=== PATIENT | male | born 1950 | race Caucasian/White ===

== ENCOUNTER 2021-10-19 14:33 | Outpatient (CLI) | payer OTHER, SELFPAY ==
[2021-10-19 16:52] LABS: Uric Acid* 9.8 mg/dL (2.2-8.4)
== END 2021-10-19 14:34 | disposition home or self-care (01) ==
LOC: LKVREF 14:34
PROVIDERS: PCP Family Medicine; Visit Provider Nurse Practitioner Family
DX: M79.673 Pain in unspecified foot (principal); M10.9 Gout, unspecified
CPT/HCPCS: 84550

== ENCOUNTER 2022-04-22 08:21 | Outpatient (CLI) | payer OTHER, SELFPAY ==
[2022-04-22 12:50] LABS: Chloride* 101 mmol/L (96-114)
[2022-04-22 12:51] LABS: Albumin* 4.2 g/dL (3.3-5.0); Sodium* 138 mmol/L (135-149)
[2022-04-22 12:53] LABS: Carbon Dioxide* 30 mmol/L (20-32); Cholesterol* 163 mg/dL (90-199)
[2022-04-22 12:54] LABS: Alanine Aminotransferase* 18 U/L (4-50); Alkaline Phosphatase* 85 U/L (40-150); Aspartate Amino Transferase* 30 U/L (12-35); Bilirubin Total* 1.1 mg/dL (0.1-1.5); Blood Urea Nitrogen* 22 mg/dL (7-30); Estimated Glomerular Filt Rate 81 ml/min; Glucose* 97 mg/dL (60-115); Potassium* 4.9 mmol/L (3.6-5.1); Total Protein* 7.5 g/dL (6.0-8.3); Triglycerides* 60 mg/dL (40-149)
[2022-04-22 12:55] LABS: Calcium* 9.2 mg/dL (8.4-10.6); HDL Cholesterol* 73 mg/dL (>=40); LDL Cholesterol Calculated 78 mg/dL (<100)
[2022-04-22 13:12] LABS: PSA Screen* 1.52 ng/mL (0.10-4.00)
== END 2022-04-22 08:22 | disposition home or self-care (01) ==
LOC: FRMREF 08:22
PROVIDERS: PCP Family Medicine; Visit Provider Family Medicine
DX: E78.5 Hyperlipidemia, unspecified (principal); Z12.5 Encounter for screening for malignant neoplasm of prostate
CPT/HCPCS: 80053; 80061; 84153

== ENCOUNTER 2023-03-24 07:38 | Outpatient (CLI) | payer OTHER, SELFPAY ==
--- NOTE | 2023-03-24 09:14 | W.ANESCHARGE ---
Anesthesia Charges Start Date/Time Anesthesia Start Date: 03/24/23 Anesthesia Start Time: 08:45 Stop Date/Time Anesthesia Stop Date: 03/24/23 Anesthesia Stop Time: 09:10
--- NOTE | 2023-03-24 09:32 | W.ANESCHARGE ---
Anesthesia Charges Start Date/Time Anesthesia Start Date: 03/24/23 Anesthesia Start Time: 08:45 Stop Date/Time Anesthesia Stop Date: 03/24/23 Anesthesia Stop Time: 09:10 Summary Extremes of Age - Over 70 or under 1: MDA
== END 2023-03-24 07:39 | disposition home or self-care (01) ==
LOC: OP CLINIC 07:39
PROVIDERS: PCP Family Medicine; Visit Provider Internal Medicine
DX: Z12.11 Encounter for screening for malignant neoplasm of colon (principal); Z86.010 Personal history of colon polyps
CPT/HCPCS: 00812; 45378; 99100; J2704

== ENCOUNTER 2023-06-02 07:47 | Outpatient (CLI) | payer OTHER, SELFPAY | END 2023-06-02 07:48 | disposition home or self-care (01) | LOC: NFLDREF 06-07 07:46 | PROVIDERS: PCP Family Medicine; Referring Provider Family Medicine; Visit Provider Family Medicine | DX: E78.5 Hyperlipidemia, unspecified (principal); Z79.899 Other long term (current) drug therapy; Z12.5 Encounter for screening for malignant neoplasm of prostate | CPT/HCPCS: 80053; 80061; G0103 ==

== ENCOUNTER 2023-06-06 14:07 | Outpatient (CLI) | payer OTHER, SELFPAY | END 2023-06-06 14:08 | disposition home or self-care (01) | PROVIDERS: PCP Family Medicine; Visit Provider Family Medicine | DX: Z00.00 Encounter for general adult medical examination without abnormal findings (principal); I10 Essential (primary) hypertension; N28.9 Disorder of kidney and ureter, unspecified | CPT/HCPCS: 80048 ==

== ENCOUNTER 2024-06-28 07:31 | Outpatient (CLI) | payer BC, SELFPAY | END 2024-06-28 07:32 | disposition home or self-care (01) | LOC: NFLDREF 07-02 00:22 | PROVIDERS: PCP Family Medicine; Referring Provider Family Medicine; Visit Provider Family Medicine | DX: E78.5 Hyperlipidemia, unspecified (principal); Z12.5 Encounter for screening for malignant neoplasm of prostate | CPT/HCPCS: 80053; 80061; G0103 ==

== ENCOUNTER 2024-07-03 14:08 | Outpatient (CLI) | payer BC, SELFPAY | END 2024-07-03 14:09 | disposition home or self-care (01) | LOC: NFLDREF 14:09 | PROVIDERS: PCP Family Medicine; Visit Provider Family Medicine | DX: E87.5 Hyperkalemia (principal) | CPT/HCPCS: 80048 ==

== ENCOUNTER 2024-12-25 14:24 | Outpatient (CLI) | payer BC, SELFPAY ==
[2024-12-25 14:59] LABS: Creatinine* 1.3 mg/dL (0.5-1.5); Estimated Glomerular Filt Rate 58 ml/min
--- NOTE | 2024-12-25 15:00 | CRLHL7_ITS ---
For Patients: As a result of the Century Cures Act, medical imaging exams and procedure reports are released immediately into your electronic medical record. You may view this report before your referring provider. If you have questions, please contact your health care provider. Indication: ABNORMAL FINDING OF LUNG Technique: CT Chest W/ 75CC ISOVUE 370 Please note that all CT scans at this facility use dose modulation, iterative reconstruction, and/or weight-based dosing when appropriate to reduce radiation dose to as low as reasonably achievable. Comparison: Chest x-ray 12/18/2024 Findings: The visualized thyroid is within normal limits. No enlarged mediastinal, hilar or axillary lymph nodes. Large mass within the liver is present which measures 13.8 x 11.9 cm, incompletely visualized. Multiple surgical clips are present in the right upper retroperitoneum from right nephrectomy. Vascular masses within the left upper retroperitoneum measure up to 2.9 cm. Atherosclerotic changes. Lytic lesion within the C3 vertebral body measures 1.2 cm. Additional smaller lytic lesions are present elsewhere. No pathologic fracture. Innumerable pulmonary nodules are present bilaterally, the largest is located within the right lower lobe and measures 3.8 cm. No pleural effusion. No pneumothorax. No pulmonary edema. Impression: Innumerable pulmonary nodules measuring up to 3.8 cm. Vascular solid masses within the visualized left upper retroperitoneum measuring up to 2.9 cm. Surrounding left para-aortic adenopathy also noted. Complex vascular intrahepatic mass measures at least 13.8 cm. A smaller adjacent masses present in the dome of the liver. Recommendations include CT of the abdomen and pelvis to better visualize the liver masses and left upper retroperitoneal masses. The should be followed with percutaneous biopsy, CT-PET and oncology referral. Please note that all CT scans at this facility use dose modulation, iterative reconstruction, and/or weight-based dosing when appropriate to reduce radiation dose to as low as reasonably achievable. Dictated by Tomas Galindo MD @ 12/26/2024 11:11:48 AM (Electronically Signed)
== END 2024-12-25 14:25 | disposition home or self-care (01) ==
LOC: CT 14:25
PROVIDERS: PCP Family Medicine; Visit Provider Family Medicine
DX: R91.8 Other nonspecific abnormal finding of lung field (principal); R16.0 Hepatomegaly, not elsewhere classified
CPT/HCPCS: 36415; 71260; 82565; Q9967

== ENCOUNTER 2024-12-30 16:26 | Outpatient (CLI) | payer BC, SELFPAY | END 2024-12-30 16:27 | disposition home or self-care (01) | LOC: NFLDREF 16:27 | PROVIDERS: PCP Family Medicine; Visit Provider Family Medicine | DX: M89.8X9 Other specified disorders of bone, unspecified site (principal); R16.0 Hepatomegaly, not elsewhere classified; R91.8 Other nonspecific abnormal finding of lung field; R63.4 Abnormal weight loss; Z68.24 Body mass index [BMI] 24.0-24.9, adult | CPT/HCPCS: 80053; 83970 ==

== ENCOUNTER 2024-12-31 12:41 | Outpatient (CLI) | payer BC, SELFPAY ==
--- NOTE | 2024-12-31 13:00 | CRLHL7_ITS ---
For Patients: As a result of the Century Cures Act, medical imaging exams and procedure reports are released immediately into your electronic medical record. You may view this report before your referring provider. If you have questions, please contact your health care provider. INDICATION: Abnormal chest CT. Suspect malignancy. TECHNIQUE: CT abdomen and pelvis acquired with 81 mL Isovue 370 IV contrast. COMPARISON: 12/25/[address] FINDINGS: Lower chest: Multiple pulmonary metastases. Liver: Subtle 7 mm low-density lesion left hepatic lobe image 46 series 2. 6 mm similar lesion right hepatic lobe image 47. Suspicious for metastases. Gallbladder and bile ducts: Unremarkable. No stones or inflammation. No biliary dilatation. Pancreas: Unremarkable. No mass or inflammation. Spleen: Unremarkable. Normal in size. No masses. Adrenal glands: 2 irregularly enhancing nodules in the left adrenal gland measuring 3.0 and 2.4 cm compatible with metastases. Right adrenal gland is not visible. Kidneys: Surgical clips in the right retroperitoneum. Left kidney normal GI tract: Unremarkable. Normal in caliber. No sign of mass or inflammation. Vasculature: Aortic atherosclerosis. Mesenteric arteries are patent. Lymph nodes: No lymphadenopathy. Omentum/Peritoneum/Abdominal Wall: 13.4 x 11.8 x 15.7 cm malignant mass with peripheral hypervascularity and internal necrosis in the right retroperitoneum. There is tumor neovascularity around the mass. This appears to originate separate from the liver and it deforms and possibly invade the right hepatic lobe. The leading differential diagnoses include renal cell carcinoma or adrenocortical carcinoma. 1 cm enhancing soft tissue nodule in the superficial subcutaneous tissues lateral to the iliac bone and gluteus musculature on image 96 series 2, and 2.1 cm enhancing intramuscular mass just posterior to the right femur lesser trochanter on image 152 are probably soft tissue metastases. Pelvis: Unremarkable. Bones: Lytic metastases in the anterior left acetabulum, right L1 vertebral body. IMPRESSION: 1. 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 2. Mass deforms and possibly invades the right hepatic lobe. 3. Metastases in the left adrenal gland, L1, left acetabulum, subcutaneous tissues, lungs, and probably the liver. Please note that all CT scans at this facility use dose modulation, iterative reconstruction, and/or weight-based dosing when appropriate to reduce radiation dose to as low as reasonably achievable. Dictated by Arben Domingo MD @ 01/01/2025 2:41:06 PM (Electronically Signed)
== END 2024-12-31 12:42 | disposition home or self-care (01) ==
PROVIDERS: PCP Family Medicine; Visit Provider Family Medicine
DX: R91.8 Other nonspecific abnormal finding of lung field (principal); C48.0 Malignant neoplasm of retroperitoneum; C78.00 Secondary malignant neoplasm of unspecified lung; C79.72 Secondary malignant neoplasm of left adrenal gland; C79.51 Secondary malignant neoplasm of bone; R16.0 Hepatomegaly, not elsewhere classified; M89.8X9 Other specified disorders of bone, unspecified site
CPT/HCPCS: 74177; Q9967

== ENCOUNTER 2025-01-01 07:47 | Outpatient (CLI) | payer BC, SELFPAY | END 2025-01-01 07:48 | disposition home or self-care (01) | LOC: NFLDREF 07:49 | PROVIDERS: PCP Family Medicine; Visit Provider Family Medicine | DX: E83.52 Hypercalcemia (principal) | CPT/HCPCS: 82397 ==

== ENCOUNTER 2025-02-18 18:25 | Emergency (ER) | payer BC, SELFPAY ==
--- OUTSIDE RECORDS SUMMARY | 2025-01-06 07:45 | XMS_ITS | Encounter Summary ---
Author Organization [facility] Address [address] [place] [id number] Care Team Providers Care Tv News Director Name Role Phone Unavailable Primary Care Provider Unavailabl e Reason for Visit * Reason Onset Date Comments Intake Assessment 01/06/2025 * Appointment Request (Routine) - Authorized Specialty Diagnoses / Procedures Referred By Lencho lópez Referred To Contact Oncology Referral ID Status Reason Start Date Expiration Date V isits Requested Visits Authorized [id number] Authorized 01/03/2025 04/05/2026 1 1 Encounter Details Date Type Department Care Team (Latest Contact Info) Description 01/06/2025 8:45 AM CDT Clinical Communication Virtual Review in [address] [phone] Intake Assessment Social History Tobacco Use Types Packs/Day Years Used Date Smoking Tobacco: Never Passive Smoke Exposure: Never Smokeless Tobacco: Never Alcohol Use Standard Drinks/Week Comments Not Currently 0 (1 standard drink = 0.6 oz pur e alcohol) Sex and Gender Information Value Date Recorded Sex Assigned at Male 01/05/2025 9:59 AM CDT Legal Sex Male 11:49 AM CLINICAL ADMINISTRATIVE COORDINATOR Gender Identity Male 01/05/2025 9:59 AM CDT Sexual Orientation Straight 01/05/2025 9: 59 AM CDT documented as of this encounter Plan of Treatment Upcoming Encounters Date Type Department Care Team (Late st Contact Info) Description 03/18/2025 1:20 PM CLINICAL ADMINISTRATIVE COORDINATOR Lab Department of Laboratory Medicine and Pathology, [facility], in [place], [place] [address] [place] [phone] Artemio [place] M.D. [address] [place] [phone] 03/18/2025 3:00 PM CLINICAL ADMINISTRATIVE COORDINATOR Office Visit Department of Oncology in [place], [place] [address] [place] [phone] Artemio [place] M.D. [address] [place] [phone] 03/18/2025 4:00 PM CLINICAL ADMINISTRATIVE COORDINATOR Infusion Department of Oncology in [place], [place] [address] [place] [phone] Artemio [place] M.D. [address] [place] [phone] 04/14/2025 12:20 PM CLINICAL ADMINISTRATIVE COORDINATOR Lab Department of Laboratory Medicine and Pathology, [place], [place] [address] [place] [phone] Artemio [place] M.D. [address] [place] [phone] 04/14/2025 2:20 PM CLINICAL ADMINISTRATIVE COORDINATOR Office Visit Department of Oncology in [place], [place] [address] [place] [phone] Artemio [place] M.D. [address] [place] [phone] 04/14/2025 3:00 PM CLINICAL ADMINISTRATIVE COORDINATOR Infusion Department of Oncology in [place], [place] [address] [place] [phone] Artemio [place] M.D. [address] [place] [phone] 05/12/2025 12:50 PM CLINICAL ADMINISTRATIVE COORDINATOR Lab Department of Laboratory Medicine and Pathology, [facility] in [place], [place] [address] [place] [phone] Artemio [place] M.D. [address] [place] [phone] 05/12/2025 3:00 PM CLINICAL ADMINISTRATIVE COORDINATOR Office Visit Department of Oncology in [place], [place] [address] [place] [phone] Artemio [place] M.D. [address] [place] [phone] 05/13/2025 7:00 AM CLINICAL ADMINISTRATIVE COORDINATOR Infusion Department of Oncology in [place], [place] [address] [place] [phone] Artemio [place] M.D. [address] [place] [phone] documented as of this encounter Visit Diagnoses Not on filedocumented in this encounter
--- OUTSIDE RECORDS SUMMARY | 2025-01-08 10:00 | XMS_ITS | Encounter Summary ---
Author Organization [facility] Address [address] [place] [address] Care Team Providers Care Architectural Design Lecturer Name Role Phone Unavailable Primary Care Provider Unavailabl e Reason for Referral * Outpatient (Routine) - Closed Specialty Diagnoses / Procedures Referred By Lencho lópez Referred To Contact Diagnoses Malignant Neoplasm Of Kidney 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 (HCC) Procedures US Liver Biopsy Artemio Dunn M.D. [address] [place] [address] Phone: tel: fax: 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 [address] [place] [address] Phone: tel: fax: [facility] Referral ID Status Reason Start Date Expiration Date Visits Re quested Visits Authorized [id number] Closed 01/08/2025 04/10/2026 1 1 Reason for Visit * Appointment Request (Routine) - Closed Specialty Diagnoses / Procedures Referred By Lencho lópez Referred To Contact Oncology Diagnoses Carcinoma Renal Cell (HCC) Referral ID Status Reason Start Date Expiration Date Visits Re quested Visits Authorized [id number] Closed 01/02/2025 04/04/2026 1 1 Encounter Details Date Type Department Care Team (Late st Contact Info) Description 01/08/2025 11:00 AM CDT Telemedicine Department of Oncology in [place], [place] [address] [place] [address] Artemio Dunn M.D. 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 (HCC) (Primary Dx); Carcinoma Renal Cell Right (HCC) Social History Tobacco Use Types Packs/Day Years Used Date Smoking Tobacco: Never Passive Smoke Exposure: Never Smokeless Tobacco: Never Alcohol Use Standard Drinks/Week Comments Not Currently 0 (1 standard drink = 0.6 oz pur e alcohol) Sex and Gender Information Value Date Recorded Sex Assigned at Male 01/05/2025 9:59 AM CDT Legal Sex Male 11:49 AM [employer] Gender Identity Male 01/05/2025 9:59 AM CDT Sexual Orientation Straight 01/05/2025 9: 59 AM CDT documented as of this encounter Consult Notes * Artemio Dunn M.D. - 01/08/2025 11:00 AM CDT PRIMARY CARE PHYSICIAN No primary care provider on file. REQUESTING PROVIDER Gab Song M.D. [address], [place] [address] LOCAL ONCOLOGIST No care meat team member to display PRIMARY READING ONCOLOGIST Artemio Dunn M.D. REASON FOR CONSULT Sammy Watson is a 74 y.o. 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 I visited with Mr. Watson and his and daughter, Suzette, by video consultation today at the request of Dr. Rios in Urology. Mr. Watson had a right radical nephrectomy and lymphadenectomy in January [address] Gonzalez. Last followup was in 2009. Most recently, he has developed a cough which did not respond to antibiotics. He has had weight loss of about 25 pounds over the last 2-3 months. He notes that he has an intact appetite, though it isnot as good as previous. 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 ECOG performance score 0. He notes some right hip pain for which he just takes Tylenol. His family has noted some issues with memory and balance, though overall he functions quite well. He is not on any blood thinners or aspirin. I have reviewed the available imaging and the outside reports. He does have concerning findings forrecurrent metastatic renal cell carcinoma with a large liver mass along with pulmonary lesions. We will have his outside films formally reviewed here. SUBJECTIVE PAST MEDICAL HISTORY Medical History[1] Surgical History[2] REVIEW OF SYSTEMS Per the HPI. 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 Watson and his and daughter. We discussed next steps in terms of further diagnostic workup to include an ultrasound-guided biopsy of the liver mass. (As noted, he is not on blood thinners or aspirin.) We will also complete his staging with an MRI of the brain. I will be in touch with him about those tests, and then we can go from there in terms of further discussion about treatment. We did discuss that from what I can tell at this point, the mainstay of his therapy would likely be medication rather than any local therapies. It was my pleasure to meet them today. PATIENT EDUCATION Ready to learn, no apparent learning barriers were identified; learning preferences include listening. Explained diagnosis and treatment plan; patient expressed understanding of the content. [1] Past Medical History: Diagnosis Date BenignProstatic Hyperplasia Localized 2017 Cancer Renal Cell Carcinoma Personal History 2009 Dyslipidemia NOS 2009 Hypertension NOS 2009 Polyp Colon 2020 [2] Past Surgical History: Procedure Laterality Date KIDNEY SURGERY 2009 OTHER CONVERTED SHX (SEE COMMENT) N/A 02/01/2008 >1. Right radical nephrectomy. 2. Retroperitoneal lymph node dissection. documented in this encounter Plan of Treatment Upcoming Encounters Date Type Department Care Team (Late st Contact Info) Description 03/18/2025 1:20 PM [employer] Lab Department of Laboratory Medicine and Pathology, [facility] in [place], [place] [address] [place] [phone] Artemio Dunn M.D. [address] [place] [phone] 03/18/2025 3:00 PM [employer] Office Visit Department of Oncology in [place], [place] [address] [place] [phone] Artemio Dunn M.D. [address] [place] [phone] 03/18/2025 4:00 PM [employer] Infusion Department of Oncology in [place], [place] [address] [place] [phone] Artemio Dunn M.D. [address] [place] [phone] 04/14/2025 12:20 PM [employer] Lab Department of Laboratory Medicine and Pathology, [facility], in [place], [place] [address] [place] [phone] Artemio Dunn M.D. [address] [place] [phone] 04/14/2025 2:20 PM [employer] Office Visit Department of Oncology in [place], [place] [address] [place] [phone] Artemio Dunn M.D. [address] [place] [phone] 04/14/2025 3:00 PM [employer] Infusion Department of Oncology in [place], [place] [address] [place] [phone] Artemio Dunn M.D. [address] [place] [phone] 05/12/2025 12:50 PM [employer] Lab Department of Laboratory Medicine and Pathology, [facility], in [place], [place] [address] [place] [phone] Artemio Dunn M.D. [address] [place] [phone] 05/12/2025 3:00 PM [employer] Office Visit Department of Oncology in [address] [phone] Artemio Dunn M.D. [address] [place] [phone] 05/13/2025 7:00 AM [employer] Infusion Department of Oncology in [place], [place] [address] [place] [phone] Artemio Dunn M.D. [address] [place] [phone] documented as of this encounter Procedures Procedure Name Priority Date/Time Associated Diagnosis Comments PROTHROMBIN TIME (PT), P Routine 01/10/2025 8:02 AM CDT Malignant Neoplasm Of Kidney 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 (HCC) PLATELETS, B Routine 01/10/2025 8:02 AM CDT Malignant Neoplasm Of Kidney 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 (HCC) documented in this encounter Results * MR Brain without and with IV Contrast (01/15/2025 7:55 PM CDT) Anatomical Region Laterality Modality Head, Brain, Neuroradiology RST LOS, Neuroradiology ARZ LOS, Neuroradiology FLA LOS N/A Magnetic Resonance Impressions 01/16/2025 11:42 AM CDT 1. 5 mm enhancing lesion in the left frontal lobe, likely a metastasis. 2. 9 mm enhancing extra-axial lesion over the inferior right frontal lobe, likely a meningioma. 3. Nonspecific 6 mm area of enhancement in the left sphenoid bone. Head CT could potentially be helpful for further evaluation. Narrative 01/16/2025 11:42 AM CDT EXAM: MR BRAIN WITHOUT AND WITH IV CONTRAST COMPARISON: None. FINDINGS: 5 mm enhancing lesion in the left frontal lobe with mild surrounding edema (13/105) suspicious for metastatic disease. 9 mm extra-axial enhancing lesion over the inferior right frontal operculum (13/98), more suggestive of a meningioma than a metastasis. No significant mass effect or adjacent edema. Indeterminate 6 mm area of enhancement in the left sphenoid bone (13/63). No additional pathologic intracranial enhancement. Minimal additional FLAIR signal abnormality in the cerebral white matter most consistent with small vessel ischemic change. Small developmental venous anomalies inferior right frontal lobe and anterior left cerebellar hemisphere. Tiny focus of hemosiderin deposition anterior left cerebellar hemisphere adjacent to the developmental venous anomaly, which could represent a tiny cavernous malformation. Enhancing presumed inflammatory lesion/polyp in the inferior left sphenoid sinus (13/33). Slight mucosal thickening in the paranasal sinuses. Postsurgical changes both globes. Procedure Note Ange Lowery M.D. - 01/16/2025 EXAM: MR BRAIN WITHOUT AND WITH IV CONTRAST COMPARISON: None. FINDINGS: 5 mm enhancing lesion in the left frontal lobe with mildsurrounding edema (13/105) suspicious for metastatic disease. 9 mm extra-axial enhancing lesion over the inferior right frontaloperculum (13/98), more suggestive of a meningioma than a metastasis. Nosignificant mass effect or adjacent edema. Indeterminate 6 mm area of enhancement in the left sphenoid bone(13/63). No additional pathologic intracranial enhancement. Minimal additionalFLAIR signal abnormality in the cerebral white matter most consistent withsmall vessel ischemic change. Small developmental venous anomaliesinferior right frontal lobe and anterior left cerebellar hemisphere. Tinyfocus of hemosiderin deposition anterior left cerebellar hemisphereadjacent to the developmental venous anomaly, which could represent a tinycavernous malformation. Enhancing presumed inflammatory lesion/polyp in the inferior left sphenoidsinus (13/33). Slight mucosal thickening in the paranasal sinuses.Postsurgical changes both globes. IMPRESSION: 1. 5 mm enhancing lesion in the left frontal lobe, likely a metastasis. 2. 9 mm enhancing extra-axial lesion over the inferior right frontal lobe,likely a meningioma. 3. Nonspecific 6 mm area of enhancement in the left sphenoid bone. Head CTcould potentially be helpful for further evaluation. us Artemio Dunn M.D. IMG MRI PROCEDURES Final R esult * US Liver Biopsy (01/10/2025 10:40 AM CDT) Anatomical Region Laterality Modality Abdomen, Ultrasound RST LOS, Ultrasound ARZ LOS, Procedure FLA LOS, Abdominal FLA LOS, Procedural, Procedural NWWI LOS N/A Ultrasound Impressions 01/10/2025 10:51 AM CDT Ultrasound-guided right retroperitoneal mass biopsy. NR Narrative 01/10/2025 10:51 AM CDT EXAM: US LIVER BIOPSY PRE-PROCEDURE: TECHNIQUE: Sterile. 1% lidocaine for local anesthesia. Location: Large right retroperitoneal mass, which causes significant mass effect on the adjacent liver. Target lesion size: 13.2 cm. Needle size: 17/18 gauge coaxial system. Number of passes: 4 Complication: None. Blood loss: Minimal. (5 cc of a Gelfoam slurry was injected via the introducer needle following the biopsy to promote hemostasis). PATIENT INSTRUCTIONS: Patient may be dismissed from the radiology department when dismissal criteria met. POST-PROCEDURE DIAGNOSIS: Probable large renal cell carcinoma recurrence in the right nephrectomy bed, which causes significant mass effect on the adjacent liver. Procedure Note Kelvin Kauffman M.D. - 01/10/2025 EXAM: US LIVER BIOPSY PRE-PROCEDURE: TECHNIQUE: Sterile. 1% lidocaine for local anesthesia. Location: Large right retroperitoneal mass, which causes significant masseffect on the adjacent liver. Target lesion size: 13.2 cm. Needle size: 17/18 gauge coaxial system. Number of passes: 4 Complication: None. Blood loss: Minimal. (5 cc of a Gelfoam slurry was injected via theintroducer needle following the biopsy to promote hemostasis). PATIENT INSTRUCTIONS: Patient may be dismissed from the radiologydepartment when dismissal criteria met. POST-PROCEDURE DIAGNOSIS: Probable large renal cell carcinoma recurrencein the right nephrectomy bed, which causes significant mass effect on theadjacent liver. IMPRESSION: Ultrasound-guided right retroperitoneal mass biopsy. NR us Artemio Dunn M.D. IMG US PROCEDURES Final Re sult * (ABNORMAL) CBC with Differential, Blood (01/10/2025 8:02 AM CDT) Hemoglobin 17.1(H) 13.2 - 16.6 g/dL 01/10/2025 8:27 AM CDT DTL Hematocrit 53.7(H) 38.3 - 48.6 % 01/10/2025 8:27 AM CDT DTL Erythrocytes 6.57(H) 4.35 - 5.65 x10(12)/L 01/10/2025 8:27 AM CDT DTL MCV 81.7 78.2 - 97.9 fL 01/10/2025 8:27 AM CDT DTL RBC Distrib Width 18.6(H) 11.8 - 14.5 % 01/10/2025 8:27 AM CDT DTL Platelet Count 374(H) 135 - 317 x10(9)/L 01/10/2025 8:27 AM CDT DTL Leukocytes 7.0 3.4 - 9.6 x10(9)/L 01/10/2025 8:27 AM CDT DTL Neutrophils 5.21 1.56 - 6.45 x10(9)/L 01/10/2025 8:27 AM CDT DHPM Lymphocytes 0.63(L) 0.95 - 3.07 x10(9)/L 01/10/2025 8:27 AM CDT DTL Monocytes 0.86(H) 0.26 - 0.81 x10(9)/L 01/10/2025 8:27 AM CDT DTL Eosinophils 0.22 0.03 - 0.48 x10(9)/L 01/10/2025 8:27 AM CDT DTL Basophils 0.05 0.01 - 0.08 x10(9)/L 01/10/2025 8:27 AM CDT DTL Blood (Blood, Venous) 01/10/2025 8:02 AM CDT 01/10/2025 8:16 AM CDT us Artemio Dunn M.D. LAB BLOOD ADD-ON Final Res ult [facility] [address] [place] [address], [place] DTL [facility] [place] [address] [place] [address] DHPM [facility] [place] [address] [place] [address] * (ABNORMAL) Comprehensive Metabolic Panel (01/10/2025 8:02 AM CDT) [facility] Potassium, S 5.2 3.6 - 5.2 mmol/L 01/10/2025 9:55 AM CDT DTL Sodium, S 137 135 - 145 mmol/L 01/10/2025 9:55 AM CDT DTL Chloride, S 100 98 - 107 mmol/L 01/10/2025 9:55 AM CDT DTL Bicarbonate, S 24 22 - 29 mmol/L 01/10/2025 9:55 AM CDT DTL Anion Gap 13 7 - 15 01/10/2025 9:55 AM CDT DTL BUN (Blood Urea Nitrogen), S 25(H) 8 - 24 mg/dL 01/10/2025 9:55 AM CDT DTL Creatinine 1.43(H) 0.74 - 1.35 mg/dL 01/10/2025 9:55 AM CDT DTL Estimated GFR (eGFR) 52(L) >=60 mL/min/BS A 01/10/2025 9:55 AM CDT DTL Comment: Estimated GFR calculated using the 2020 CKD_EPI creatinine equation. Calcium, Total, S 12.7(H) 8.8 - 10.2 mg/dL 01/10/2025 9:55 AM CDT DTL Glucose, S 104 70 - 140 mg/dL 01/10/2025 9:55 AM CDT DTL Protein, Total, S 7.0 6.3 - 7.9 g/dL 01/10/2025 9:55 AM CDT DTL Albumin, S 3.6 3.5 - 5.0 g/dL 01/10/2025 9:55 AM CDT DTL Aspartate Aminotransferase (AST), S 14 8 - 48 U/L 01/10/2025 9:55 AM CDT DTL Alkaline Phosphatase, S 99 40 - 129 U/L 01/10/2025 9:55 AM CDT DTL Alanine Aminotransferase (ALT), S 8 7 - 55 U/L 01/10/2025 9:55 AM CDT DTL Bilirubin, Total, S 0.8 0.0 - 1.2 mg/dL 01/10/2025 9:55 AM CDT DTL Blood (Blood, Venous) 01/10/2025 8:02 AM CDT 01/10/2025 8:39 AM CDT Artemio Dunn M.D. LAB BLOOD ADD-ON Final Res ult Performing Organization Address [facility] Co de Phone Number [facility] [address] [place] [address] * (ABNORMAL) Prothrombin Time (PT) (01/10/2025 8:02 AM CDT) Prothrombin Time, P 13.6(H) 9.4 - 12.5 sec 01/10/2025 8:32 AM CDT [facility] INR 1.2 0.9 - 1.1 01/10/2025 8:32 AM CDT METH Comment: ----ADDITIONAL INFORMATION---- Standard intensity warfarin therapeutic range: 2.0 to 3.0 High intensity warfarin therapeutic range: 2.5 to 3.5 Blood (Blood, Venous) 01/10/2025 8:02 AM CDT 01/10/2025 8:24 AM CDT Artemio Dunn M.D. LAB BLOOD ADD-ON Final Res ult Performing Organization Address [facility] Co de Phone Number [facility] [address] [place] [address], [facility] [place] [address] * (ABNORMAL) Platelet Count (01/10/2025 8:02 AM CDT) Platelet Count 402(H) 135 - 317 x10(9)/L 01/10/2025 8:22 AM CDT DTL Blood (Blood, Venous) 01/10/2025 8:02 AM CDT 01/10/2025 8:15 AM CDT us Artemio Dunn M.D. LAB BLOOD ADD-ON Final Res ult [facility] [address] [place] [address], [place] [facility] [place] [address] [place] [address] * Interpretation of Outside CT Chest (01/08/2025 11:09 AM CDT) Anatomical Region Laterality Modality Chest, Thoracic RST LOS, Tho racic ARZ LOS, Thoracic FLA LOS, Other, Body N/A Computed Tomography Impressions 01/09/2025 10:10 AM CDT 1. Numerous pulmonary nodules and a mass in the right lower lobe medially that are new since 2009 are highly concerning for pulmonary metastases 2. New lytic lesions in the thoracic spine are also highly concerning for metastatic disease. 3. Sequelae of previous granulomatous infection. Narrative 01/09/2025 10:10 AM CDT EXAM: INTERPRETATION OF OUTSIDE CT CHEST WITH INTRAVENOUS CONTRAST DATED 12/25/2024 but COMPARISON: 11/30/2009 and exams back to 01/11/2008 FINDINGS: There are numerous bilateral noncalcified pulmonary nodules and a 28 x 34 mm mass in the right lower lobe that are all new since 12/10/2009. These are highly concerning for pulmonary metastases, given history of malignancy. These are too numerous to count but some of the larger nodules include a 15 mm nodule in the left upper lobe anteriorly (series 2, image 58), a 12 mm nodule in the right midlung laterally (series 2, image 49), and a 14 mm nodule in the right upper lobe anteriorly (series 2, image 58). The smallest nodules are best demonstrated on the maximum intensity projections (series 7). No adenopathy in the chest. An 10 mm area of lucency with cortical destruction in the T12 vertebral body (series 2, image 92) and an 8 mm lucency in the posterior aspect of T3 (series 2, image 19) that are new since 12/10/2009 are also concerning for bony metastases. No pathologic fractures. There are few calcified pulmonary granulomas. Regional vascular calcifications, including the coronary arteries. Somewhat nodular enlargement of the thyroid is similar to the 12/10/2009 exam. Interpretation of the outside CT of the abdomen and pelvis will be reported separately. Procedure Note Artemio Davis M.D. - 01/09/2025 EXAM: INTERPRETATION OF OUTSIDE CT CHEST WITH INTRAVENOUS CONTRAST DATED1 but COMPARISON: 11/30/2009 and exams back to 01/11/2008 FINDINGS: There are numerous bilateral noncalcified pulmonary nodules and a 28 x 34mm mass in the right lower lobe that are all new since 12/10/2009. Theseare highly concerning for pulmonary metastases, given history ofmalignancy. These are too numerous to count but some of the larger nodulesinclude a 15 mm nodule in the left upper lobe anteriorly (series 2, image58), a 12 mm nodule in the right midlung laterally (series 2, image 49),and a 14 mm nodule in the right upper lobe anteriorly (series 2, image58). The smallest nodules are best demonstrated on the maximum intensityprojections (series 7). No adenopathy in the chest. An 10 mm area of lucency with cortical destruction in the T12 vertebralbody (series 2, image 92) and an 8 mm lucency in the posterior aspect ofT3 (series 2, image 19) that are new since 12/10/2009 are also concerningfor bony metastases. No pathologic fractures. There are few calcified pulmonary granulomas. Regional vascular calcifications, including the coronary arteries. Somewhat nodular enlargement of the thyroid is similar to the 12/10/2009exam. Interpretation of the outside CT of the abdomen and pelvis will bereported separately. IMPRESSION: 1. Numerous pulmonary nodules and a mass in the right lower lobe mediallythat are new since 2009 are highly concerning for pulmonary metastases 2. New lytic lesions in the thoracic spine are also highly concerning formetastatic disease. 3. Sequelae of previous granulomatous infection. us Artemio Dunn M.D. IMPrem CT PROCEDURES Final Re sult * Interpretation of Outside CT Abdomen and or Pelvis (01/08/2025 11:09 AM CDT) Anatomical Region Laterality Modality Abdomen, Pelvis, Abdominal R ST LOS, Abdominal ARZ LOS, Abdominal FLA LOS, Other N/A Computed Tomography Impressions 01/10/2025 3:10 PM CDT Prior right radical nephrectomy. Interval development of a 13.3 cm malignant right retroperitoneal mass with left adrenal, liver, soft tissue and skeletal metastases. Narrative 01/10/2025 3:10 PM CDT EXAM: INTERPRETATION OF OUTSIDE CT ABDOMEN AND OR PELVIS Outside CT abdomen pelvis with IV contrast dated 12/31/2024. COMPARISON: CT examination 04/21/2008 FINDINGS: Prior right radical nephrectomy. Interval development of a 13.3 x 10.9 x 13.0 cm right retroperitoneal mass with peripheral enhancement and central necrosis. This mass exerts mass effect on the adjacent right lobe of the liver without definite evidence of invasion. 2 enhancing metastatic nodules are contained in the left adrenal gland measuring 3.3 and 2.5 cm in diameter. Soft tissue metastases are contained in the subcutaneous tissues tissues of overlying the left iliac bone (series 2 image 96) adjacent to the proximal right femur (series 2, image 152) and anterior to the right femoral head (series 2, image 123). 2 small peripherally enhancing lesions are contained in the liver (series 2, image 46, 47). Osteolytic metastases involving the right periacetabular region (series 2, image 125) and the right lateral aspect of the T12 vertebral body. Masses or calcifications degenerative changes thoracic and lumbar spine. Prostatic enlargement. Venous collaterals in the left retroperitoneum. Numerous pulmonary metastases. This examination was performed in conjunction with a CT of the chest, which will be reported separately. Procedure Note Nishant Mckeon M.D., Ph.D. - 01/10/2025 EXAM: INTERPRETATION OF OUTSIDE CT ABDOMEN AND OR PELVIS Outside CT abdomen pelvis with IV contrast dated 12/31/2024. COMPARISON: CT examination 04/21/2008 FINDINGS: Prior right radical nephrectomy. Interval development of a 13.3x 10.9 x 13.0 cm right retroperitoneal mass with peripheral enhancementand central necrosis. This mass exerts mass effect on the adjacent rightlobe of the liver without definite evidence of invasion. 2 enhancingmetastatic nodules are contained in the left adrenal gland measuring 3.3and 2.5 cm in diameter. Soft tissue metastases are contained in thesubcutaneous tissues tissues of overlying the left iliac bone (series 2image 96) adjacent to the proximal right femur (series 2, image 152) andanterior to the right femoral head (series 2, image 123). 2 smallperipherally enhancing lesions are contained in the liver (series 2, image46, 47). Osteolytic metastases involving the right periacetabular region(series 2, image 125) and the right lateral aspect of the T12 vertebralbody. Masses or calcifications degenerative changes thoracic and lumbar spine.Prostatic enlargement. Venous collaterals in the left retroperitoneum.Numerous pulmonary metastases. This examination was performed in conjunction with a CT of the chest,which will be reported separately. IMPRESSION: Prior right radical nephrectomy. Interval development of a 13.3 cmmalignant right retroperitoneal mass with left adrenal, liver, soft tissueand skeletal metastases. Artemio Dunn M.D. 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
--- OUTSIDE RECORDS SUMMARY | 2025-01-08 10:05 | XMS_ITS | Encounter Summary ---
Author Organization [facility] Address [address] [place] [address] Care Team Providers Care Drill Setup Operator Name Role Phone Unavailable Primary Care Provider Unavailabl e Encounter Details Date Type Department Care Team (Latest Contact Info) Description 01/08/2025 11:05 AM CDT Ancillary Procedure Department of Radiology in [place], [place] [address] [place] [phone] Artemio Dunn M.D. 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) Social History Tobacco Use Types Packs/Day Years Used Date Smoking Tobacco: Never Passive Smoke Exposure: Never Smokeless Tobacco: Never Alcohol Use Standard Drinks/Week Comments Not Currently 0 (1 standard drink = 0.6 oz pur e alcohol) Sex and Gender Information Value Date Recorded Sex Assigned at Male 01/05/2025 9:59 AM CDT Legal Sex Male 11:49 AM CONTRACTS MANAGER Gender Identity Male 01/05/2025 9:59 AM CDT Sexual Orientation Straight 01/05/2025 9: 59 AM CDT documented as of this encounter Plan of Treatment Upcoming Encounters Date Type Department Care Team (Late st Contact Info) Description 03/18/2025 1:20 PM CONTRACTS MANAGER Lab Department of Laboratory Medicine and Pathology, [facility], in [place], [place] [address] [place] [phone] Artemio Dunn M.D. [address] [place] [phone] 03/18/2025 3:00 PM CONTRACTS MANAGER Office Visit Department of Oncology in [place], [place] [address] [place] [phone] Artemio Dunn M.D. [address] [place] [phone] 03/18/2025 4:00 PM CONTRACTS MANAGER Infusion Department of Oncology in [place], [place] [address] [place] [phone] Artemio Dunn M.D. [address] [place] [phone] 04/14/2025 12:20 PM CONTRACTS MANAGER Lab Department of Laboratory Medicine and Pathology, [facility] in [place], [place] [address] [place] [phone] Artemio Dunn M.D. [address] [place] [phone] 04/14/2025 2:20 PM CONTRACTS MANAGER Office Visit Department of Oncology in [place] [employer], [place] [address] [place] [phone] Artemio Dunn M.D. [address] [place] [phone] 04/14/2025 3:00 PM CONTRACTS MANAGER Infusion Department of Oncology in [place] [employer], [place] [address] [place] [phone] Artemio Dunn M.D. [address] [place] [phone] 05/12/2025 12:50 PM CONTRACTS MANAGER Lab Department of Laboratory Medicine and Pathology, [facility] in [place], [place] [address] [place] [phone] Artemio Dunn M.D. [address] [place] [phone] 05/12/2025 3:00 PM CONTRACTS MANAGER Office Visit Department of Oncology in [place] [employer], [place] [address] [place] [address] Artemio Dunn M.D. [address] [place] [phone] 05/13/2025 7:00 AM CONTRACTS MANAGER Infusion Department of Oncology in [place] [employer], [place] [address] [place] [phone] Artemio Dunn M.D. 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 Interpretation of the outside CT of the abdomen and pelvis will bereported separately. IMPRESSION: 1. Numerous pulmonary nodules and a mass in the right lower lobe mediallythat are new since 2010 are highly concerning for pulmonary metastases 2. New lytic lesions in the thoracic spine are also highly concerning formetastatic disease. 3. Sequelae of previous granulomatous infection. us Artemio Dunn M.D. 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
--- OUTSIDE RECORDS SUMMARY | 2025-01-08 10:10 | XMS_ITS | Encounter Summary ---
Author Organization [facility] Address [address] [place] [address] Care Team Providers Care Day Trader Name Role Phone Unavailable Primary Care Provider Unavailabl e Encounter Details Date Type Department Care Team (Latest Contact Info) Description 01/08/2025 11:10 AM CDT Ancillary Procedure Department of Radiology in [place], [place] [address] [place] [phone] Artemio Dunn M.D. [address] [place] [phone] Malignant Neoplasm Of Kidney 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 [...] AM CDT Legal Sex Male 11:49 AM BESSEMER BOTTOM MAKER Gender Identity Male 01/05/2025 9:59 AM CDT Sexual Orientation Straight 01/05/2025 9: 59 AM CDT documented as of this encounter Plan of Treatment Upcoming Encounters Date Type Department Care Team (Late st Contact Info) Description 03/18/2025 1:20 PM BESSEMER BOTTOM MAKER Lab Department of Laboratory Medicine and Pathology, [facility], in [place], [place] [address] [place] [phone] Artemio Dunn M.D. [address] [place] [phone] 03/18/2025 3:00 PM BESSEMER BOTTOM MAKER Office Visit Department of Oncology in [place], [place] [address] [place] [phone] Artemio Dunn M.D. [address] [place] [phone] 03/18/2025 4:00 PM BESSEMER BOTTOM MAKER Infusion Department of Oncology in [place], [place] [address] [place] [phone] Artemio Dunn M.D. [address] [place] [phone] 04/14/2025 12:20 PM BESSEMER BOTTOM MAKER Lab Department of Laboratory Medicine and Pathology, [facility] in [place], [place] [address] [place] [phone] Artemio Dunn M.D. [address] [place] [phone] 04/14/2025 2:20 PM BESSEMER BOTTOM MAKER Office Visit Department of Oncology in [place], [place] [address] [place] [phone] Artemio Dunn M.D. [address] [place] [phone] 04/14/2025 3:00 PM BESSEMER BOTTOM MAKER Infusion Department of Oncology in [place], [place] [address] [place] [phone] Artemio Dunn M.D. [address] [place] [phone] 05/12/2025 12:50 PM BESSEMER BOTTOM MAKER Lab Department of Laboratory Medicine and Pathology, [facility] in [place], [place] [address] [place] [phone] Artemio Dunn M.D. [address] [place] [phone] 05/12/2025 3:00 PM BESSEMER BOTTOM MAKER Office Visit Department of Oncology in [place], [place] [address] [place] [phone] Artemio Dunn M.D. [address] [place] [phone] 05/13/2025 7:00 AM BESSEMER BOTTOM MAKER Infusion Department of Oncology in [place], [place] [address] [place] [phone] Artemio Dunn M.D. 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
--- OUTSIDE RECORDS SUMMARY | 2025-01-10 08:01 | XMS_ITS | Encounter Summary ---
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 200 [place] [address] Phone: tel: fax: 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 200 [place] [address] Phone: tel: fax: [facility] Referral ID Status Reason Start Date Expiration Date Visits Re quested Visits Authorized [id number] Closed 01/08/2025 04/10/2026 1 1 Encounter Details Date Type Department Care Team (Latest Contact Info) Description 01/10/2025 9:01 AM CDT - 01/10/2025 11:39 AM CDT Hospital Encounter Department of Radiology, [facility] in [place], [place] [address] [place] [phone] Artemio Dunn M.D. 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 Gender Identity Male 01/05/2025 9:59 AM CDT Sexual Orientation Straight 01/05/2025 9: 59 AM CDT documented as of this encounter Last Filed Vital Signs Vital Sign Reading Time Taken Comments Blood Pressure 129/70 01/10/2025 11:15 AM CDT Pulse 96 01/10/2025 11:15 AM CDT Temperature 37.6 C (99.7 F) 01/10/2025 10:44 AM CDT Respiratory Rate 16 01/10/2025 9:23 AM CDT Oxygen Saturation 95% 01/10/2025 11:15 AM CDT Inhaled Oxygen Concentration - - Weight 75.3 kg (166 lb 0.1 oz) 01/10/2025 9:23 A M CDT Height - - Body Mass Index - - documented in this encounter Discharge Instructions * Discharge Instr - Activity* Natalie Hidalgo APRN, C.N.P., M.S.N. - 01/09/2025 11:01 AM CDT Care for the percutaneous puncture site Keep dressing in place over puncture site for 24-48 hours. 24-48 hours after procedure, it is okay to shower. Remove the dressing and clean and rinse the puncture site gently with soap and water. If there is drainage or crusting at the insertion site, gently but thoroughly clean the site using a wash cloth or cotton tip swab with soap and water. After removing the dressing and cleaning the site, allow the area to air-dry or pat dry with a clean towel. Reapply a Band-Aid to the puncture site or leave open to air. Do not submerge puncture site in water such as tub bathing or swimming until completely healed. No vigorous activities for 24 hours, then advance activity as tolerated. Limit lifting to less than10 pounds for several days Seeking emergency care Contact your health care provider immediately or seek emergency care for the following symptoms: A temperature of 101 degrees Fahrenheit (38.3 degrees Celsius) or higher Chills Severe pain Drainage that has blood in it for more than 24 hours. For nonemergent questions or concerns: Please contact your referring team. documented in this encounter Medications at Time of Discharge acetaminophen (TylenoL) 500 mg tablet Take 500-1,000 mg by mouth 3 (three) times a day as needed. albuterol 90 mcg/actuation inhaler Inhale. 11/21/2024 lisinopriL 10 mg tablet Take 10 mg by mouth. 10/15/2019 multivitamin-mine npbc-CX-hlzdko (Centrum Silver) 400-250 mcg per chewable tablet Chew 1 tablet daily. simvastatin (Zocor) 20 mg tablet Take 20 mg by mouth. 10/15/2019 triamterene-hydro CHLOROthiazide (Maxzide-25) 37.5-25 mg per tablet Take 1 tablet by mouth. On Hold 06/10/2009 documented as of this encounter Plan of Treatment Upcoming Encounters Date Type Department Care Team (Late st Contact Info) Description 03/18/2025 1:20 PM L[employer] SCHO[employer] MUSIC TEACHER Lab Department of Laboratory Medicine and Pathology, [facility], in [place], [place] [address] [place] [address] Artemio Dunn M.D. [address] [place] [phone] 03/18/2025 3:00 PM L[employer] SCHO[employer] MUSIC TEACHER Office Visit Department of Oncology in [place], [place] [address] [place] [phone] Artemio Dunn M.D. [address] [place] [phone] 03/18/2025 4:00 PM L[employer] SCHO[employer] MUSIC TEACHER Infusion Department of Oncology in [place], [place] [address] [place] [address] Artemio Dunn M.D. [address] [place] [phone] 04/14/2025 12:20 PM LOWER SCHO[employer] MUSIC TEACHER Lab Department of Laboratory Medicine and Pathology, [facility] in [place], [place] [address] [place] [phone] Artemio Dunn M.D. [address] [place] [phone] 04/14/2025 2:20 PM LOWER SCHO[employer] MUSIC TEACHER Office Visit Department of Oncology in [place], [place] [address] [place] [address] Artemio Dunn M.D. [address] [place] [phone] 04/14/2025 3:00 PM L[employer] SCHO[employer] MUSIC TEACHER Infusion Department of Oncology in [place], [place] [address] [place] [phone] Artemio Dunn M.D. [address] [place] [phone] 05/12/2025 12:50 PM L[employer] SCHO[employer] MUSIC TEACHER Lab Department of Laboratory Medicine and Pathology, [facility] in [place], [place] [address] [place] [phone] Artemio Dunn M.D. [address] [place] [phone] 05/12/2025 3:00 PM L[employer] SCHO[employer] MUSIC TEACHER Office Visit Department of Oncology in [place], [place] [address] [place] [address] Artemio Dunn M.D. [address] [place] [phone] 05/13/2025 7:00 AM LOWER SCHOOL MUSIC TEACHER Infusion Department of Oncology in [place], [place] [address] [place] [address] Arteimo Dunn M.D. 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 -Pathology Fellow(A) 01/13/2025 2:00 PM CDT DTL Report electronically signed by Violet Wallace M.D. I verify that I have examined all relevant slides/materials for the specimen(s) and rendered or confirmed the diagnosis. (A) 01/13/2025 2:00 PM CDT DTL Gross Description Received 4 alcohol-fixed smears and tissue. Additionally, received in formalin labeled with the patient's name, medical record number and abdomen, right retroperitoneal mass arethree pale osorio soft tissue cores, ranging from 0.8-2.4 cm in length and averaging 0.1 cm in diameter. The specimens are submitted entoto in cassette A1. Grossed by BARRY. (A) 01/13/2025 2:00 PM CDT DTL Source A. Soft Tissue, Abdomen, right retroperitoneal mass, fine needle aspiration (A) 01/13/2025 2:00 PM CDT DTL Interpretation A. Soft Tissue, Abdomen, right retroperitoneal mass, fine needle aspiration (smears/core biopsy): Positive for malignancy. Involved by clear cell renal cell carcinoma, WHO/ISUP grade 2 (of 4). Immunostains performed on block A1 show the neoplastic cells are positive for PAX8 and CA-IX (A) 01/13/2025 2:00 PM CDT DTL Tissue (Abdomen) 01/10/2025 10:26 AM CDT us Artemio Dunn M.D. LAB SURG PATH ORDERABLES F inal Result Performing Organization Address [facility] Co de Phone Number [address] [address], [facility] DTL [address] [place] [address] * (ABNORMAL) Prothrombin Time (PT) (01/10/2025 8:02 AM CDT) Prothrombin Time, P 13.8(H) 9.4 - 12.5 sec 01/10/2025 8:31 AM CDT DTL INR 1.3 0.9 - 1.1 01/10/2025 8:31 AM CDT DTL Comment: ----ADDITIONAL INFORMATION---- Standard intensity warfarin therapeutic range: 2.0 to 3.0 High intensity warfarin therapeutic range: 2.5 to 3.5 Blood (Blood, Venous) 01/10/2025 8:02 AM CDT 01/10/2025 8:16 AM CDT Natalie Hidalgo APRN, C.N.P., M.S.N. 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) documented in this encounter Administered Medications Inactive Administered Medications - up to 3 most recent administrations Medication Order MAR Action Action Date Dose Rate Site acetaminophen tablet 1,000 mg (TylenoL) 1,000 mg, oral, Every 6 hours PRN, mild pain or score 1-3 of 10, moderate pain or score 4-6 of 10, severe pain or score 7-10 of 10, Starting on Mon01/10/25 at 1045, (not to exceed 4 grams in 24 hours) Given 01/10/2025 10:51 AM CDT 1,000 mg lidocaine 10 mg/mL (1 %) injection (Xylocaine) As needed, Starting on Mon01/10/25 at 1031, Intra-Op Given 01/10/2025 10:31 AM CDT 8 mL Abdominal Tissue naloxone injection 0.2 mg (Narcan) 0.2 mg, intravenous, As needed, respiratory depression, Starting on Mon01/10/25 at 1045, For RASS Score -4 or less, respiratory rate of less than 8 breaths/min. Notify provider/service and rapid response team (if available at institution). ondansetron (PF) injection 4 mg (Zofran) 4 mg, intravenous, Every 6 hours PRN, vomiting, nausea, Starting on Mon01/10/25 at 1045, Reassess for nausea or vomiting after at least 10 minutes. If nausea or vomiting persists administer next ordered antiemetic medications (order for antiemetic medication administration ondansetron then prochlorperazine). oxyCODONE IR tablet 10 mg (Roxicodone) 10 mg, oral, Every 4 hours PRN, severe pain or score 7-10 of 10, Starting on Mon01/10/25 at 1045 oxyCODONE IR tablet 5 mg (Roxicodone) 5 mg, oral, Every 4 hours PRN, moderate pain or score 4-6 of 10, Starting on Mon01/10/25 at 1045 documented in this encounter Active and Recently Administered Medications Times are shown in CDT. PRN Medication Order 01/08/2025 01/09/2025 01/10/2025 acetaminophen tablet 1,000 mg (TylenoL) 1,000 mg, oral, Every 6 hours PRN, mild pain or score 1-3 of 10, moderate pain or score 4-6 of 10, severe pain or score 7-10 of 10, Starting on Mon01/10/25 at 1045, (not to exceed 4 grams in 24 hours) 1051 (Given - Provid er: Vinh Dejesus R.N.) lidocaine 10 mg/mL (1 %) injection (Xylocaine) (COMPLETED) As needed, Starting on Mon01/10/25 at 1031, Intra-Op 1031 (Given - Provid er: Kelvin Kauffman M.D.) naloxone injection 0.2 mg (Narcan) 0.2 mg, intravenous, As needed, respiratory depression, Starting on Mon01/10/25 at 1045, For RASS Score -4 or less, respiratory rate of less than 8 breaths/min. Notify provider/service and rapid response team (if available at institution). ondansetron (PF) injection 4 mg (Zofran) 4 mg, intravenous, Every 6 hours PRN, vomiting, nausea, Starting on Mon01/10/25 at 1045, Reassess for nausea or vomiting after at least 10 minutes. If nausea or vomiting persists administer next ordered antiemetic medications (order for antiemetic medication administration ondansetron then prochlorperazine). oxyCODONE IR tablet 10 mg (Roxicodone)(Linked Group 1) 10 mg, oral, Every 4 hours PRN, severe pain or score 7-10 of 10, Starting on Mon01/10/25 at 1045 oxyCODONE IR tablet 5 mg (Roxicodone)(Linked Group 1) 5 mg, oral, Every 4 hours PRN, moderate pain or score 4-6 of 10, Starting on Mon01/10/25 at 1045 Linked Groups Order Group 1: oxyCODONE IR tablet 5 mg (Roxicodone)Jump to med 5 mg, oral, Every 4 hours PRN, moderate pain or score 4-6 of 10, Starting on Mon01/10/25 at 1045 Or oxyCODONE IR tablet 10 mg (Roxicodone)Jump to med 10 mg, oral, Every 4 hours PRN, severe pain or score 7-10 of 10, Starting on Mon01/10/25 at 1045 documented in this encounter
--- OUTSIDE RECORDS SUMMARY | 2025-01-14 14:00 | XMS_ITS | Encounter Summary ---
Author Organization [facility] Address [address] [place] [address] Care Team Providers Care Content Editor Name Role Phone Unavailable Primary Care Provider Unavailabl e Encounter Details Date Type Department Care Team (Late st Contact Info) Description 01/14/2025 3:00 PM CDT Virtual Visit Department of Oncology in [place], [place] [address] [place] [phone] Artemio Dunn M.D. [address] [place] [phone] Cancer Renal Cell Carcinoma Personal History (Primary Dx) Social History Tobacco Use Types Packs/Day Years Used Date Smoking Tobacco: Never Passive Smoke Exposure: Never Smokeless Tobacco: Never Alcohol Use Standard Drinks/Week Comments Not Currently 0 (1 standard drink = 0.6 oz pur e alcohol) PRAPARE - Transportation Answer Date Re corded In the past 12 months, has l ack of transportation kept you from medical appointments or from getting medications? No 12/20 In the past 12 months, has l ack of transportation kept you from meetings, work, or from getting things needed for daily living? No 01/17/2025 [facility] Utilities Answer Date Recorded In the past 12 months has e electric, gas, oil, or water company threatened to shut off services in your home? No 01/17/2025 Housing Stability Answer Date Recorded What is your living situation today? I have a [facility] place to live 01/17/2025 Sex and Gender Information Value Date Recorded Sex Assigned at Male 01/05/2025 9:59 AM CDT Legal Sex Male 11:49 AM DIRECTOR OF PSYCHIATRY Gender Identity Male 01/05/2025 9:59 AM CDT Sexual Orientation Straight 01/05/2025 9: 59 AM CDT documented as of this encounter Progress Notes * Artemio Dunn M.D. - 01/14/2025 3:00 PM CDT TELEPHONE CALL: I called Mr. Watson and his with the results of his biopsy from January 10. This returned showing metastatic clear cell renal cell carcinoma, grade 2 of 4. We discussed that eventually we will want to start systemic therapy, likely an IO-TKI combination. Though, first we need to have him complete the MRI of the brain which is scheduled for tomorrow. I will be in touch with him about those results and to discuss next steps. CTOR OF PSYCHIATRY documented in this encounter Plan of Treatment Upcoming Encounters Date Type Department Care Team (Late st Contact Info) Description 03/18/2025 1:20 PM DIRECTOR OF PSYCHIATRY Lab Department of Laboratory Medicine and Pathology, [facility], in [place], [place] [address] [place] [phone] Artemio Dunn M.D. [address] [place] [phone] 03/18/2025 3:00 PM DIRECTOR OF PSYCHIATRY Office Visit Department of Oncology in [place], [place] [address] [place] [phone] Artemio Dunn M.D. [address] [place] [phone] 03/18/2025 4:00 PM DIRECTOR OF PSYCHIATRY Infusion Department of Oncology in [place], [place] [address] [place] [phone] Artemio Dunn M.D. [address] [place] [phone] 04/14/2025 12:20 PM DIRECTOR OF PSYCHIATRY Lab Department of Laboratory Medicine and Pathology, [facility], in [place], [place] [address] [place] [phone] Artemio Dunn M.D. [address] [place] [phone] 04/14/2025 2:20 PM DIRECTOR OF PSYCHIATRY Office Visit Department of Oncology in [place], [place] [address] [place] [phone] Artemio Dunn M.D. [address] [place] [phone] 04/14/2025 3:00 PM DIRECTOR OF PSYCHIATRY Infusion Department of Oncology in [place], [place] [address] [place] [phone] Artemio Dunn M.D. [address] [place] [phone] 05/12/2025 12:50 PM DIRECTOR OF PSYCHIATRY Lab Department of Laboratory Medicine and Pathology, [facility], in [place], [place] [address] [place] [phone] Artemio Dunn M.D. [address] [place] [phone] 05/12/2025 3:00 PM DIRECTOR OF PSYCHIATRY Office Visit Department of Oncology in [place], [place] [address] [place] [phone] Artemio Dunn M.D. [address] [place] [phone] 05/13/2025 7:00 AM DIRECTOR OF PSYCHIATRY Infusion Department of Oncology in [place], [place] [address] [place] [phone] Artemio Dunn M.D. [address] [place] [phone] documented as of this encounter Visit Diagnoses Diagnosis Cancer Renal Cell Carcinoma Personal History- Primary documented in this encounter
--- OUTSIDE RECORDS SUMMARY | 2025-01-15 17:30 | XMS_ITS | Encounter Summary ---
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 200 [place] [address] Phone: tel: fax: [facility] Referral ID Status Reason Start Date Expiration Date Visits Re quested Visits Authorized [id number] Closed 01/08/2025 04/10/2026 1 1 Encounter Details Date Type Department Care Team (Latest Contact Info) Description 01/15/2025 6:30 PM CDT - 01/15/2025 11:59 PM CDT Hospital Encounter Department of Radiology, [facility] in [place], [place] [address] [place] [address] Artemio Dunn M.D. [address] [place] [phone] Malignant Neoplasm Of Kidney 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 [...] AM CDT Legal Sex Male 11:49 AM COFFEE MAKER Gender Identity Male 01/05/2025 9:59 AM CDT Sexual Orientation Straight 01/05/2025 9: 59 AM CDT documented as of this encounter Medications at Time of Discharge acetaminophen (TylenoL) 500 mg tablet Take 500-1,000 mg by mouth 3 (three) times a day as needed. albuterol 90 mcg/actuation inhaler Inhale. 11/21/2024 lisinopriL 10 mg tablet Take 10 mg by mouth. 10/15/2019 multivitamin-mine zqbi-XM-easdai (Centrum Silver) 400-250 mcg per chewable tablet Chew 1 tablet daily. simvastatin (Zocor) 20 mg tablet Take 20 mg by mouth. 10/15/2019 triamterene-hydro CHLOROthiazide (Maxzide-25) 37.5-25 mg per tablet Take 1 tablet by mouth. On Hold 06/10/2009 documented as of this encounter Plan of Treatment Upcoming Encounters Date Type Department Care Team (Late st Contact Info) Description 03/18/2025 1:20 PM COFFEE MAKER Lab Department of Laboratory Medicine and Pathology, [facility] in [place], [place] [address] [place] [address] Artemio Dunn M.D. 200 [place] [address] 03/18/2025 3:00 PM COFFEE MAKER Office Visit Department of Oncology in [place], [place] [address] [place] [phone] Artemio Dunn M.D. [address] [place] [phone] 03/18/2025 4:00 PM COFFEE MAKER Infusion Department of Oncology in [place], [place] [address] [place] [phone] Artemio Dunn M.D. [address] [place] [phone] 04/14/2025 12:20 PM COFFEE MAKER Lab Department of Laboratory Medicine and Pathology, [facility] in [place], [place] [address] [place] [phone] Artemio Dunn M.D. [address] [place] [phone] 04/14/2025 2:20 PM COFFEE MAKER Office Visit Department of Oncology in [place], [place] [address] [place] [phone] Artemio Dunn M.D. [address] [place] [phone] 04/14/2025 3:00 PM COFFEE MAKER Infusion Department of Oncology in [place], [place] [address] [place] [phone] Artemio Dunn M.D. [address] [place] [phone] 05/12/2025 12:50 PM COFFEE MAKER Lab Department of Laboratory Medicine and Pathology, [facility] in [place], [place] [address] [place] [phone] Artemio Dunn M.D. [address] [place] [phone] 05/12/2025 3:00 PM COFFEE MAKER Office Visit Department of Oncology in [place], [place] [address] [place] [address] Artemio Dunn M.D. [address] [place] [address] 05/13/2025 7:00 AM COFFEE MAKER Infusion Department of Oncology in [place], [place] [address] [place] [address] Artemio Dunn M.D. 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 9 mm extra-axial enhancing lesion over the inferior right frontal operculum (/98), more suggestive of a meningioma than a [...] for further evaluation. us Artemio Dunn M.D. 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 Given 01/15/2025 7:54 PM CDT 8 mL documented in this encounter
--- OUTSIDE RECORDS SUMMARY | 2025-01-16 14:00 | XMS_ITS | Encounter Summary ---
Author Organization [facility] Address [address] [place] [address] Care Team Providers Care Tube Winder Name Role Phone Unavailable Primary Care Provider Unavailabl e Encounter Details Date Type Department Care Team (Late st Contact Info) Description 01/16/2025 3:00 PM CDT Admin Visit Department of Oncology in [place], [place] [address] [place] [address] Social History Tobacco Use Types Packs/Day Years [...] things needed for daily living? No 01/17/2025 [facility] Utilities Answer Date Recorded In the past 12 months has e [employer], gas, oil, or water [employer] threatened to shut off services in your home? No 01/17/2025 Housing Stability Answer Date Recorded What is your living situation today? [facility] 01/17/2025 Sex and Gender Information Value Date Recorded Sex Assigned at Male 01/05/2025 9:59 AM CDT Legal Sex Male 11:49 AM HAND BRAILLE TRANSCRIBER Gender Identity Male 01/05/2025 9:59 AM CDT Sexual Orientation Straight 01/05/2025 9: 59 AM CDT documented as of this encounter Plan of Treatment Upcoming Encounters Date Type Department Care Team (Late st Contact Info) Description 03/18/2025 1:20 PM HAND BRAILLE TRANSCRIBER Lab Department of Laboratory Medicine and Pathology, [facility] in [place], [place] [address] [place] [phone] Artemio Dunn M.D. [address] [place] [phone] 03/18/2025 3:00 PM HAND BRAILLE TRANSCRIBER Office Visit Department of Oncology in [place], [place] [address] [place] [phone] Artemio Dunn M.D. [address] [place] [phone] 03/18/2025 4:00 PM HAND BRAILLE TRANSCRIBER Infusion Department of Oncology in [place], [place] [address] [place] [phone] Artemio Dunn M.D. [address] [place] [phone] 04/14/2025 12:20 PM HAND BRAILLE TRANSCRIBER Lab Department of Laboratory Medicine and Pathology, [facility] in [place], [place] [address] [place] [phone] Artemio Dunn M.D. [address] [place] [phone] 04/14/2025 2:20 PM HAND BRAILLE TRANSCRIBER Office Visit Department of Oncology in [place], [place] [address] [place] [phone] Artemio Dunn M.D. [address] [place] [phone] 04/14/2025 3:00 PM HAND BRAILLE TRANSCRIBER Infusion Department of Oncology in [place], [place] [address] [place] [phone] Artemio Dunn M.D. [address] [place] [phone] 05/12/2025 12:50 PM HAND BRAILLE TRANSCRIBER Lab Department of Laboratory Medicine and Pathology, [facility], in [place], [place] [address] [place] [address] Artemio Dunn M.D. [address] [place] [phone] 05/12/2025 3:00 PM HAND BRAILLE TRANSCRIBER Office Visit Department of Oncology in [place], [place] [address] [place] [address] Artemio Dunn M.D. [address] [place] [phone] 05/13/2025 7:00 AM HAND BRAILLE TRANSCRIBER Infusion Department of Oncology in [place], [place] [address] [place] [address] Artemio Dunn M.D. [address] [place] [phone] documented as of this encounter Visit Diagnoses Not on filedocumented in this encounter
--- OUTSIDE RECORDS SUMMARY | 2025-01-16 14:40 | XMS_ITS | Encounter Summary ---
Author Organization [facility] Address [address] [place] [address] Care Team Providers Care Cement Railroad Car Loader Name Role Phone Unavailable Primary Care Provider Unavailabl e Encounter Details Date Type Department Care Team (Late st Contact Info) Description 01/16/2025 3:40 PM CDT Virtual Visit Department of Oncology in [address] [place] [phone] Artemio Dunn M.D. [address] [place] [phone] Cancer Renal Cell Carcinoma Personal History (Primary [...] things needed for daily living? No 01/17/2025 [facility] Utilities Answer Date Recorded In the past 12 months has e electric, gas, oil, or water company threatened to shut off services in your home? No 01/17/2025 Housing Stability Answer Date Recorded What is your living situation today? I have a [facility] place to live 01/17/2025 Sex and Gender Information Value Date Recorded Sex Assigned at Male 01/05/2025 9:59 AM CDT Legal Sex Male 11:49 AM FOWL BLOOD TESTER Gender Identity Male 01/05/2025 9:59 AM CDT Sexual Orientation Straight 01/05/2025 9: 59 AM CDT documented as of this encounter Progress Notes * Artemio Dunn M.D. - 01/16/2025 3:40 PM CDT TELEPHONE CALL: I spoke to Mr. Watson and his over the phone. He had an MRI of the brain last evening. We went through the findings. The main issue is a 5-mm enhancing lesion in the left frontal lobe which is likely a metastasis for renal cell carcinoma. There is also a 9-mm enhancing extra-axial lesion over the inferior right frontal lobe which is likely a benign meningioma as well as a nonspecific 6-mm area of enhancement in the left sphenoid bone. In terms of the left sphenoid bone enhancement, even if it is an area of metastatic disease, we do not need to do any local therapy for it because he will be on systemic therapy in the future. I did though discuss with him that we need to address the left frontal lobe metastasis, and, in that regard, he will be seen for consultation in Neurosurgery regarding the possibility of gamma knife.This is set for Monday. I will check his chart and then we will determine next steps about timing of initiating systemic therapy, though we need to address this 1st. We will likely do pembrolizumab plus axitinib once he is able to start systemic therapy. documented in this encounter Plan of Treatment Upcoming Encounters Date Type Department Care Team (Late st Contact Info) Description 03/18/2025 1:20 PM FOWL BLOOD TESTER Lab Department of Laboratory Medicine and Pathology, [facility], in [address] [place] [address] Artemio Dunn M.D. [address] [place] [address] 03/18/2025 3:00 PM FOWL BLOOD TESTER Office Visit Department of Oncology in [address] [place] [address] Artemio Dunn M.D. [address] [place] [phone] 03/18/2025 4:00 PM FOWL BLOOD TESTER Infusion Department of Oncology in [address] [place] [phone] Artemio Dunn M.D. [address] [place] [phone] 04/14/2025 12:20 PM FOWL BLOOD TESTER Lab Department of Laboratory Medicine and Pathology, [facility] in [address] [place] [phone] Artemio Dunn M.D. [address] [place] [phone] 04/14/2025 2:20 PM FOWL BLOOD TESTER Office Visit Department of Oncology in [address] [place] [phone] Artemio Dunn M.D. [address] [place] [phone] 04/14/2025 3:00 PM FOWL BLOOD TESTER Infusion Department of Oncology in [address] [place] [phone] Artemio Dunn M.D. [address] [place] [phone] 05/12/2025 12:50 PM FOWL BLOOD TESTER Lab Department of Laboratory Medicine and Pathology, [facility], in [address] [place] [address] Artemio Dunn M.D. [address] [place] [phone] 05/12/2025 3:00 PM FOWL BLOOD TESTER Office Visit Department of Oncology in [address] [place] [phone] Artemio Dunn M.D. [address] [place] [phone] 05/13/2025 7:00 AM FOWL BLOOD TESTER Infusion Department of Oncology in [address] [place] [phone] Artemio Dunn M.D. [address] [place] [phone] documented as of this encounter Visit Diagnoses Diagnosis Cancer Renal Cell Carcinoma Personal History- Primary documented in this encounter
--- OUTSIDE RECORDS SUMMARY | 2025-01-20 10:30 | XMS_ITS | Encounter Summary ---
Author Organization [facility] Address [address] [place] [address] Care Team Providers Care Negative Turner Name Role Phone Unavailable Primary Care Provider Unavailabl e Reason for Visit * Outpatient (Routine) - Closed Specialty Diagnoses / Procedures Referred By Lencho lópez Referred To Contact Neurological Surgery Diagnoses Cancer Renal Cell Carcinoma Personal History Artemio Dunn M.D. [address] [place] [phone] Phone: tel: fax: [facility] Referral ID Status Reason Start Date Expiration Date Visits Re quested Visits Authorized [id number] Closed 01/16/2025 07/18/2026 1 1 Encounter Details Date Type Department Care Team (Latest Contact Info) Description 01/20/2025 10:30 AM STENCILING MACHINE TENDER Comprehensive Visit Department of Neurologic Surgery in [place], [place] [address] [place] [phone] León Castro M.D. [address] [place] [phone] Secondary Malignant Neoplasm Brain (HCC) (Primary Dx) Social History Tobacco Use Types [...] things needed for daily living? No 01/17/2025 [facility] Utilities Answer Date Recorded In the past 12 months has th e electric, gas, oil, or water company threatened to shut off services in your home? No 01/17/2025 Housing Stability Answer Date Recorded What is your living situation today? I have a [facility] place to live 01/17/2025 Sex and Gender Information Value Date Recorded Sex Assigned at Male 01/05/2025 9:59 AM CDT Legal Sex Male 11:49 AM STENCILING MACHINE TENDER Gender Identity Male 01/05/2025 9:59 AM CDT Sexual Orientation Straight 01/05/2025 9: 59 AM CDT documented as of this encounter Consult Notes * León Castro M.D. - 01/20/2025 10:30 AM CST SUBJECTIVE REASON FOR CONSULT Brain metastases. REFERRAL SOURCE Artemio Dunn M.D. HISTORY OF PRESENT ILLNESS The patient is a 74-year-old man with a history of renal cell carcinoma. Recently underwent an MRI scan of his head for staging purposes. This showed a number of enhancing lesions consistent with metastatic brain disease. In speaking directly to Mr. Watson, he does not describe progressive headaches, focal neurologic deficits, or seizure-like activity. OBJECTIVE DIAGNOSTICS Review of the MRI scan of his head dated January 15, 2025, shows a left frontal 5-mm parenchymal tumor. In addition, there is dural-based enhancement over the right frontal lobe, as well as enhancement in the lateral left sphenoid wing and sphenoid sinus. ASSESSMENT / PLAN I reviewed the imaging with the patient and his family. We discussed the option of Gamma Knife radiosurgery to treat the known brain metastases, as well as the other concerning lesions. This procedure was gone over in detail. All questions were answered. Based on this discussion the patient consents and wishes to proceed. Will make arrangements to do this operation tomorrow at [facility]. I have spent 30 minutes with this patient or reviewing the chart/imaging and more than 50% of the time was spent in counseling and/or coordination of care. León Castro M.D. CT CT Job ID: [id number] CILING MACHINE TENDER documented in this encounter Plan of Treatment Upcoming Encounters Date Type Department Care Team (Late st Contact Info) Description 03/18/2025 1:20 PM STENCILING MACHINE TENDER Lab Department of Laboratory Medicine and Pathology, [facility] in [address] [phone] Artemio Dunn M.D. [address] [place] [phone] 03/18/2025 3:00 PM STENCILING MACHINE TENDER Office Visit Department of Oncology in [address] [phone] Artemio Dunn M.D. [address] [place] [phone] 03/18/2025 4:00 PM STENCILING MACHINE TENDER Infusion Department of Oncology in [address] [phone] Artemio Dunn M.D. [address] [place] [phone] 04/14/2025 12:20 PM STENCILING MACHINE TENDER Lab Department of Laboratory Medicine and Pathology, [facility], in [address] [phone] Artemio Dunn M.D. [address] [place] [phone] 04/14/2025 2:20 PM STENCILING MACHINE TENDER Office Visit Department of Oncology in [address] [phone] Artemio Dunn M.D. [address] [place] [phone] 04/14/2025 3:00 PM STENCILING MACHINE TENDER Infusion Department of Oncology in [place], [place] [address] [place] [phone] Artemio Dunn M.D. [address] [place] [phone] 05/12/2025 12:50 PM STENCILING MACHINE TENDER Lab Department of Laboratory Medicine and Pathology, [facility] in [place], [place] [address] [place] [phone] Artemio Dunn M.D. [address] [place] [phone] 05/12/2025 3:00 PM STENCILING MACHINE TENDER Office Visit Department of Oncology in [place], [place] [address] [place] [phone] Artemio Dunn M.D. [address] [place] [phone] 05/13/2025 7:00 AM STENCILING MACHINE TENDER Infusion Department of Oncology in [place], [place] [address] [place] [phone] Artemio Dunn M.D. [address] [place] [phone] documented as of this encounter Goals Goal Patient Goal Type Associated Problems Recent Progress Patient-Stated? Author Autogenerat ed Goal Care Plan Autogenerated Problem Hilary White R.N. documented as of this encounter Visit Diagnoses Diagnosis Secondary Malignant Neoplasm Brain (HCC)- Primary documented in this encounter Additional Health Concerns Active Problems Noted Date Diagnosed Date Autogenerated Problem 01/21/2025 documented as of this encounter
--- OUTSIDE RECORDS SUMMARY | 2025-01-20 15:09 | XMS_ITS | Encounter Summary ---
Author Organization [facility] Address [address] [place] [address] Care Team Providers Care Board Certified Arts Therapist Name Role Phone Unavailable Primary Care Provider Unavailabl e Reason for Referral * Outpatient (Routine) - Closed Specialty Diagnoses / Procedures Referred By Lencho lópez Referred To Contact Radiation Oncology Diagnoses Secondary Malignant Neoplasm Brain (HCC) León Castro M.D. [address] [place] [phone] Phone: tel: fax: [facility] Referral ID Status Reason Start Date Expiration Date Visits Re quested Visits Authorized [id number] Closed 01/20/2025 07/22/2026 1 1 NOMY RESEARCH MANAGER Reason for Visit * Outpatient (Routine) - Closed Specialty Diagnoses / Procedures Referred By Lencho lópez Referred To Contact Radiation Oncology Diagnoses Secondary Malignant Neoplasm Brain (HCC) [place]ón [place] [address] Phone: tel: fax: [facility] Referral ID Status Reason Start Date Expiration Date Visits Re quested Visits Authorized [id number] Closed 01/20/2025 07/22/2026 1 1 Encounter Details Date Type Department Care Team (Late st Contact Info) Description 01/20/2025 3:09 PM AGRONOMY RESEARCH MANAGER Hospital Encounter Department of Radiation Oncology in [place], [place] [address] [place] [phone] Arianne Baum M.D. [address] [place] [phone] Social History Tobacco Use Types Packs/Day Years [...] things needed for daily living? No 01/17/2025 [facility] Utilities Answer Date Recorded In the past 12 months has th e electric, gas, oil, or water company threatened to shut off services in your home? No 01/17/2025 Housing Stability Answer Date Recorded What is your living situation today? I have a [facility] place to live 01/17/2025 Sex and Gender Information Value Date Recorded Sex Assigned at Male 01/05/2025 9:59 AM CDT Legal Sex Male 11:49 AM AGRONOMY RESEARCH MANAGER Gender Identity Male 01/05/2025 9:59 AM CDT Sexual Orientation Straight 01/05/2025 9: 59 AM CDT documented as of this encounter Last Filed Vital Signs Vital Sign Reading Time Taken Comments Blood Pressure - - Pulse - - Temperature - - Respiratory Rate - - Oxygen Saturation - - Inhaled Oxygen Concentration - - Weight 74.6 kg (164 lb 7.4 oz) 01/20/2025 3:26 P M AGRONOMY RESEARCH MANAGER Height - - Body Mass Index - - documented in this encounter Consult Notes * Linda Orantes RMerylN. - 01/20/2025 3:30 PM CST RADIATION ONCOLOGY GAMMA KNIFE CONSULTATION NOTE REQUESTING PROVIDER: León Castro M.D. SUBJECTIVE DIAGNOSIS Brain metastases. Oncology History No problem history exists. HISTORY OF PRESENT ILLNESS Mr. Sammy Watson is a 74 y.o. male whose full oncologic history should be available for review in [facility]. Sammy met with Dr. Baum who has recommended consideration of gamma knife radiosurgery. Sammy is seen to discuss the same. Pertinent medical, oncologic history and physical symptoms were reviewed along with relevant imaging findings. CURRENT CHEMOTHERAPY: Treatment Plans Name Type Plan Dates Plan Provider Active Nivolumab 480 mg every 4 weeks Hematology / Oncology Treatment 1 02/02/2025 - Present Artemio Dunn M.D. OBJECTIVE Wt 74.6 kg PHYSICAL EXAMINATION On examination, Mr. Watson is alert and oriented. DIAGNOSTICS: Brain without and with IV Contrast Result Date: 01/16/2025 Impression: 1. 5 mm enhancing lesion in the left frontal lobe, likely a metastasis. 2. 9 mm enhancing extra-axial lesion over the inferior right frontal lobe, likely a meningioma. 3. Nonspecific 6 mmarea of enhancement in the left sphenoid bone. Head CT could potentially be helpful for further evaluation. Interpretation of Outside CT Abdomen and or Pelvis Result Date: 01/10/2025 Impression: Prior right radical nephrectomy. Interval development of a 13.3 cm malignant right retroperitoneal mass with left adrenal, liver, soft tissue and skeletal metastases. US Liver Biopsy Result Date: 01/10/2025 Impression: Ultrasound-guided right retroperitoneal mass biopsy. NR Interpretation of Outside CT Chest Result Date: 01/09/2025 Impression: 1. Numerous pulmonary nodules and a mass in the right lower lobe medially that are new since 2010 are highly concerning for pulmonary metastases 2. New lytic lesions in the thoracic spineare also highly concerning for metastatic disease. 3. Sequelae of previous granulomatous infection. ASSESSMENT / PLAN After confirmation of the patient's history and independent evaluation of prior imaging, I reviewedwith Mr. Watson the indication for radiation therapy, specifically treatment with gamma knife radiosurgery (GKRS), alternatives (including the option of not receiving radiation therapy), treatment technique and potential short and longterm complications of gamma knife radiosurgery for the treatmentof brain metastases. Mr. Watson is scheduled for gamma knife tomorrow and wishes to proceed. All questions were answered to the best of my ability and their apparent satisfaction. Sammy was seen on 01/20/2025 in conjunction with Linda Orantes RN who assisted in the preparation of this note and review of the GKRS patient materials such as Power Point slides providing an overview of the proposed procedure and discussing instructions such arrival at [facility] admitt ing, NPO after midnight tonight with the exception of sips of clear liquids, starting of IV for medications and fluids for hydration, placement of head frame, MRI, potential for CBCT, positioning on couch for procedure, ability to communicate with team during treatment, and the recovery process. EDUCATION: Ready to learn, no apparent learning barriers were identified; learning preferences include listening. Explained treatment plan; patient expressed understanding of the content. CONSENT Discussed the risks, benefits, alternatives, and the necessity of other members of the healthcare team participating in the procedure. All questions answered and consent given. NOMY RESEARCH MANAGER NOMY RESEARCH MANAGER documented in this encounter Plan of Treatment Upcoming Encounters Date Type Department Care Team (Late st Contact Info) Description 03/18/2025 1:20 PM AGRONOMY RESEARCH MANAGER Lab Department of Laboratory Medicine and Pathology, [address] [phone] Artemio Dunn M.D. [address] [place] [phone] 03/18/2025 3:00 PM AGRONOMY RESEARCH MANAGER Office Visit Department of Oncology in [address] [phone] Artemio Dunn M.D. [address] [place] [phone] 03/18/2025 4:00 PM AGRONOMY RESEARCH MANAGER Infusion Department of Oncology in [address] [phone] Artemio Dunn M.D. [address] [place] [phone] 04/14/2025 12:20 PM AGRONOMY RESEARCH MANAGER Lab Department of Laboratory Medicine and Pathology, [place], [place] [address] [place] [phone] Artemio Dunn M.D. [address] [place] [phone] 04/14/2025 2:20 PM AGRONOMY RESEARCH MANAGER Office Visit Department of Oncology in [place], [place] [address] [place] [phone] Artemio Dunn M.D. [address] [place] [phone] 04/14/2025 3:00 PM AGRONOMY RESEARCH MANAGER Infusion Department of Oncology in [place], [place] [address] [place] [phone] Artemio Dunn M.D. [address] [place] [phone] 05/12/2025 12:50 PM AGRONOMY RESEARCH MANAGER Lab Department of Laboratory Medicine and Pathology, [facility] in [place], [place] [address] [place] [phone] Artemio Dunn M.D. [address] [place] [phone] 05/12/2025 3:00 PM AGRONOMY RESEARCH MANAGER Office Visit Department of Oncology in [address] [phone] Artemio Dunn M.D. [address] [place] [phone] 05/13/2025 7:00 AM AGRONOMY RESEARCH MANAGER Infusion Department of Oncology in [place], [place] [address] [place] [phone] Artemio Dunn M.D. [address] [place] [phone] Scheduled Referrals Name Type Priority Associated Diagnoses Order Schedule Radiation Oncology - Brain / MOSAICIST consult (clinic) Outpatient Referral Routine Once for 1 Occurrences starting 01/20/2025 until 01/20/2025 documented as of this encounter Goals Goal Patient Goal Type Associated Problems Recent Progress Patient-Stated? Author Autogenerat ed Goal Care Plan Autogenerated Problem No Hilary Diaz, R.N. documented as of this encounter Visit Diagnoses Not on filedocumented in this encounter Additional Health Concerns Active Problems Noted Date Diagnosed Date Autogenerated Problem 01/21/2025 Infection Onset Date Last Indicated Resolved Time Protective Environment 01/29/2025 01/29/2025 documented as of this encounter
--- OUTSIDE RECORDS SUMMARY | 2025-01-21 05:30 | XMS_ITS | Encounter Summary ---
Author Organization 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 [address] [place] [address] Phone: tel: fax: Referral ID Status Reason Start Date Expiration Date Visits Re quested Visits Authorized [id number] 1 1 Encounter Details Date Type Department Care Team (Latest Contact Info) Description 01/21/2025 5:30 AM RECREATION MANAGER - 01/21/2025 9:03 AM RECREATION MANAGER Hospital Encounter [facility] MAIN OR [address] [place] [address] León Castro M.D. [address] [place] [phone] Discharge Disposition: Home or Self Care Social [...] No 01/17/2025 [facility] Utilities Answer Date Recorded In the past 12 months has [employer] electric, gas, oil, or water company threatened to shut off services in your home? No 01/17/2025 Housing Stability Answer Date Recorded What is your living situation today? I have a [facility] place to live 01/17/2025 Sex and Gender Information Value Date Recorded Sex Assigned at Male 01/05/2025 9:59 AM CDT Legal Sex Male 11:49 AM RECREATION MANAGER Gender Identity Male 01/05/2025 9:59 AM CDT Sexual Orientation Straight 01/05/2025 9: 59 AM CDT documented as of this encounter Last Filed Vital Signs Vital Sign Reading Time Taken Comments Blood Pressure 122/77 01/21/2025 8:40 AM RECREATION MANAGER Pulse 99 01/21/2025 8:40 AM RECREATION MANAGER Temperature 36.5 C (97.7 F) 01/21/2025 8:40 AM RECREATION MANAGER Respiratory Rate 17 01/21/2025 5:47 AM RECREATION MANAGER Oxygen Saturation 97% 01/21/2025 8:40 AM RECREATION MANAGER Inhaled Oxygen Concentration - - Weight 73.4 kg (161 lb 13.1 oz) 01/21/2025 5:47 AM RECREATION MANAGER Height 174 cm (5' 8.5) 01/21/2025 5:47 AM RECREATION MANAGER Body Mass Index 24.24 01/21/2025 5:47 AM RECREATION MANAGER documented in this encounter Discharge Instructions * Discharge Instructions* Joan Schulte R.N. - 01/21/2025 8:32 AM RECREATION MANAGER cCare Following Gamma Knife??? Radiosurgery After your Gamma Knife??? radiosurgery, the headframe will be removed and your head will be wrappedwith gauze to apply pressure to each screw site (Figure 11). The head wrap should remain in place for about two hours. Your IV line will be removed when you can drink the amount of fluid recommended by yourhealth care team and you have little or no nausea. You will be taken to the outpatient care area for observation. Most people aredismissed from the hospital on the day of the procedure. Activity Ask your health care provider about activity restrictions. Except as explained below, you typicallycan resume your usual activities as you feel able. If you had an angiogram as part of the procedure, you may be restricted to bed restfor about four hours. Bathing You may bathe or shower and wash your hair the day after the procedure. [place]le when washing the screw sites. Diet Return to your usual diet as you feel able. Discomfort Unless instructed otherwise, you may take bvoq-jpp-uubbpsm pain relievers in the recommended dose as needed. If you have questions about pain relievers, askyour health care provider. Medications Unless instructed otherwise, continue to take your medications as prescribed. Skin care Ask your health care provider how to care for the screw sites. These sitesusually heal within a fewdays. Side effects Side effects of Gamma Knife??? radiosurgery may include: Fatigue. Headache. Nausea. Pain or swelling near your eyes and the screw sites. Numbness or tingling near the screw sites. Fatigue, headache and nausea usually go away within a few hours. Medication is available to relievepain or nausea. A headache may go away after the head wrap is removed. Pain and swelling around your eyes and the screw sites usually goes away in a few days. Numbness or tingling near the screw sites usually goes awaywithin weeks to a few months. Follow-up appointments The response to Gamma Knife??? treatment varies widely, depending on the condition being treated and other factors. Your health care provider will monitor your response by evaluating your symptoms and sometimes with follow- upimaging studies (such as MRI, CT scan or angiogram). If you need a follow-up imaging exam, the Gamma Knife??? office staff will let you know when the exam should be done. If the necessary equipment is available, you may be able to have the exams done at a medical facility near your home and mail them to the Gamma Knife??? office for review. A dismissal letter will be sent to your referring physician describing the procedure and stating whenfollow-up should be done. You may request a copy of this letter. Contacting Your Health Care Provider Contact your health care provider immediately if you have any of the following: Drainage from a screw site Increased swelling, redness or bruising around a screw site New or increased neurological symptoms If you have questions about your condition or this information, call and speakwith your health careprovider. EATION MANAGER documented in this encounter Medications at Time of Discharge acetaminophen (TylenoL) 500 mg tablet Take 500-1,000 mg by mouth 3 (three) times a day as needed. albuterol 90 mcg/actuation inhaler Inhale. 11/21/2024 lisinopriL 10 mg tablet Take 10 mg by mouth. 10/15/2019 multivitamin-mine tmor-YA-tbtbyk (Centrum Silver) 400-250 mcg per chewable tablet Chew 1 tablet daily. simvastatin (Zocor) 20 mg tablet Take 20 mg by mouth. 10/15/2019 triamterene-hydro CHLOROthiazide (Maxzide-25) 37.5-25 mg per tablet Take 1 tablet by mouth. On Hold 06/10/2009 documented as of this encounter OR Notes * Op Note - León Castro M.D. - 01/21/2025 9:03 AM CST LOCATION: [facility], room 215. PRE-OPERATIVE DIAGNOSIS Brain metastases, renal primary. POST-OPERATIVE DIAGNOSIS Brain metastases, renal primary. FINDINGS Three tumors. COMPLICATIONS None. OPERATIVE NOTE NARRATIVE The patient was brought to the Gamma Knife after receiving benzodiazepine for sedation. The patient's head was then prepped with alcohol and the Leksell G stereotactic coordinate frame placed using 4-point pin fixation and local anesthesia. The patient then underwent a cone beam CT which was co-registered to his recent MRI. Skull measurements were taken and entered into the computer workstation. A conformal dose plan was developed based off the axial, coronal, and sagittal imaging. We used 3 dose matrices to treat tumor(s) involving the left frontal lobe, right frontal lobe, and left sphenoidwing. The first dose matrix was used to treat the left frontal tumor. One isocenter of radiation was usedto cover a volume of 0.2 cm3. The dose to the margin was 22 Gy, and the maximum dose was 25.9 Gy. The second dose matrix was used to treat the right frontal tumor. Three isocenters of radiation were used to cover a volume of 0.3 cm3. The dose to the margin was 20 Gy, and the maximum dose was 28.6Gy. The third dose matrix was used to treat the left sphenoid wing tumor. One isocenter of radiation was used to treat a volume of 0.4 cm3. The dose to the margin was 20 Gy, and the maximum dose was 28.6Gy. The patient was then taken into the Gamma Knife Suite. The patient underwent delivery of the radiation without incident. The patient was then removed from the Gamma Knife, the Leksell frame was removed, and the patient was transported back to the floor in stable condition. TPR: 4, Head frame placement, dose planning, and radiation delivery, [id number] León Castro M.D. CT CT Job ID: [id number] EATION MANAGER documented in this encounter Plan of Treatment Upcoming Encounters Date Type Department Care Team (Late st Contact Info) Description 03/18/2025 1:20 PM RECREATION MANAGER Lab Department of Laboratory Medicine and Pathology, [facility] in [address] [address] Artemio Dunn M.D. [address] [place] [phone] 03/18/2025 3:00 PM RECREATION MANAGER Office Visit Department of Oncology in [address] [phone] Artemio Dunn M.D. [address] [place] [phone] 03/18/2025 4:00 PM RECREATION MANAGER Infusion Department of Oncology in [address] [phone] Artemio Dunn M.D. [address] [place] [phone] 04/14/2025 12:20 PM RECREATION MANAGER Lab Department of Laboratory Medicine and Pathology, [facility], in [place], [place] [address] [place] [phone] Artemio Dunn M.D. [address] [place] [phone] 04/14/2025 2:20 PM RECREATION MANAGER Office Visit Department of Oncology in [place], [place] [address] [place] [phone] Artemio Dunn M.D. [address] [place] [phone] 04/14/2025 3:00 PM RECREATION MANAGER Infusion Department of Oncology in [place], [place] [address] [place] [phone] Artemio Dunn M.D. [address] [place] [phone] 05/12/2025 12:50 PM RECREATION MANAGER Lab Department of Laboratory Medicine and Pathology, [facility], in [place], [place] [address] [place] [phone] Artemio Dunn M.D. [address] [place] [phone] 05/12/2025 3:00 PM RECREATION MANAGER Office Visit Department of Oncology in [place], [place] [address] [place] [phone] Artemio Dunn M.D. [address] [place] [phone] 05/13/2025 7:00 AM RECREATION MANAGER Infusion Department of Oncology in [place], [place] [address] [place] [phone] Artemio Dunn M.D. [address] [place] [address] [place] [phone] documented as of this encounter Goals Goal Patient Goal Type Associated Problems Recent Progress Patient-Stated? Author Autogenerat ed Goal Care Plan Autogenerated Problem No Hilary Diaz R.N. documented as of this encounter Procedures Procedure Name Priority Date/Time Associated Diagnosis Comments APPLICATION STEREOTACTIC HEAD FRAME 01/21/2025 5:45 AM RECREATION MANAGER Secondary Malignant Neoplasm Brain (HCC) GAMMA KNIFE 01/21/2025 5:45 AM RECREATION MANAGER Secondary Malignant Neoplasm Brain (HCC) documented in this encounter Visit Diagnoses Not on filedocumented in this encounter Administered Medications Inactive Administered Medications - up to 3 most recent administrations Medication Order MAR Action Action Date Dose Rate Site chlorhexidine 0.12 % mouthwash 15 mL (Peridex) 15 mL, swish & spit, Once as needed, Chlorhexidine mouthwash (Peridex) should be given if patient did not complete oral care, if completion is greater than 4 hours prior to surgery or procedure start time and they do not have the opportunity to brush their teeth now (or at this time)., Starting on Mon01/21/25 at 0538, For 1 dose, Pre-Op, Instruct patient to swish entire content of Chlorhexidine 0.12% mouthwash (PERIDEX) 15 mL cup for 30 seconds, then spit, swish & spit. If patient is at risk for aspiration, apply Chlorhexidine 0.12% mouthwash to a swab and gently swab the patient's teeth and gums. Ensure swab is not oversaturated. LORazepam tablet 1 mg (Ativan) 1 mg, oral, Once, On Mon01/21/25 at 0600, For 1 dose, Pre-Op Given 01/21/2025 5:48 AM RECREATION MANAGER 1 mg sodium chloride 0.9 % injection 10 mL 10 mL, intravenous, As needed, line care, Starting on Mon01/21/25 at 0538, Pre-Op, Peripheral Intravenous Catheter and Rapid Infusion Catheter, prior to blood sampling, post blood transfusion or post blood sampling Given 01/21/2025 8:27 AM RECREATION MANAGER 10 mL sodium chloride 0.9 % injection 3 mL 3 mL, intravenous, As needed, line care, Starting on Mon01/21/25 at 0538, Pre-Op, Prior to and following infusion and between multiple consecutive infusions: sodium chloride 0.9 % injection sodium chloride 0.9 % injection 3 mL 3 mL, intravenous, Every 12 hours scheduled, First dose on Mon01/21/25 at 0900, Pre-Op, Peripheral Intravenous Catheter and Rapid Infusion Catheter, when no infusion to maintain patency documented in this encounter Active and Recently Administered Medications Due to Daylight Saving Time, this section may contain times in both CDT and RECREATION MANAGER. Scheduled Medication Order 01/19/2025 01/20/2025 01/21/2025 LORazepam tablet 1 mg (Ativan) (COMPLETED) 1 mg, oral, Once, On Mon01/21/25 at 0600, For 1 dose, Pre-Op 0548 (Given - Provid er: Samira Tesfaye R.N.) sodium chloride 0.9 % injection 3 mL 3 mL, intravenous, Every 12 hours scheduled, First dose on Mon01/21/25 at 0900, Pre-Op, Peripheral Intravenous Catheter and Rapid Infusion Catheter, when no infusion to maintain patency 0900 (Due) PRN Medication Order 01/19/2025 01/20/2025 01/21/2025 DHDmgytfjqh-rrkkcxbla-kywkrwzotmq 0.375%-1%-1:200,000 (DANIEL COYLE) injection OSM (CANCELED) As needed, Starting on Mon01/21/25 at 0642, Intra-Op 0642 (Given - Provid er: León Castro M.D. - Comment: 3 mls of 8.4% Sodium Bicarb added for total of 33 mls) chlorhexidine 0.12 % mouthwash 15 mL (Peridex) 15 mL, swish & spit, Once as needed, Chlorhexidine mouthwash (Peridex) should be given if patient did not complete oral care, if completion is greater than 4 hours prior to surgery or procedure start time and they do not have the opportunity to brush their teeth now (or at this time)., Starting on Mon01/21/25 at 0538, For 1 dose, Pre-Op, Instruct patient to swish entire content of Chlorhexidine 0.12% mouthwash (PERIDEX) 15 mL cup for 30 seconds, then spit, swish & spit. If patient is at risk for aspiration, apply Chlorhexidine 0.12% mouthwash to a swab and gently swab the patient's teeth and gums. Ensure swab is not oversaturated. dexAMETHasone injection (Decadron) (CANCELED) As needed, Starting on Mon01/21/25 at 0819, Intra-Op 0819 (Given - Provid er: Zulema Chacon RMerylN.) sodium chloride 0.9 % injection 10 mL 10 mL, intravenous, As needed, line care, Starting on Mon01/21/25 at 0538, Pre-Op, Peripheral Intravenous Catheter and Rapid Infusion Catheter, prior to blood sampling, post blood transfusion or post blood sampling 0827 (Given - Provid er: Zulema Chacon RMerylN.) sodium chloride 0.9 % injection 3 mL 3 mL, intravenous, As needed, line care, Starting on Mon01/21/25 at 0538, Pre-Op, Prior to and following infusion and between multiple consecutive infusions: sodium chloride 0.9 % injection documented in this encounter Additional Health Concerns Active Problems Noted Date Diagnosed Date Autogenerated Problem 01/21/2025 documented as of this encounter Care Teams Retail Agent Relationship Specialty Start Date End Date Elsewhere, Pcp PCP - General Internal Medicine 01/21/25 documented as of this encounter
--- OUTSIDE RECORDS SUMMARY | 2025-01-21 08:34 | XMS_ITS | Encounter Summary ---
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 [address] [place] [address] Phone: tel: fax: Referral ID Status Reason Start Date Expiration Date Visits Re quested Visits Authorized [id number] 1 1 Encounter Details Date Type Department Care Team (Late st Contact Info) Description 01/21/2025 8:34 AM MAJOR ACCOUNT MANAGER - 01/21/2025 10:17 AM MAJOR ACCOUNT MANAGER Surgery [facility] MAIN OR [address] [place] [phone] León Castro M.D. [address] [place] [phone] GAMMA KNIFE. Social History Tobacco Use Types Packs/Day Years [...] things needed for daily living? No 01/17/2025 [facility] Utilities Answer Date Recorded In the past 12 months has th [employer] electric, gas, oil, or water company threatened to shut off services in your home? No 01/17/2025 Housing Stability Answer Date Recorded What is your living situation today? I have a [facility] place to live 01/17/2025 Sex and Gender Information Value Date Recorded Sex Assigned at Male 01/05/2025 9:59 AM CDT Legal Sex Male 11:49 AM MAJOR ACCOUNT MANAGER Gender Identity Male 01/05/2025 9:59 AM CDT Sexual Orientation Straight 01/05/2025 9: 59 AM CDT documented as of this encounter Last Filed Vital Signs Vital Sign Reading Time Taken Comments Blood Pressure 122/77 01/21/2025 8:40 AM MAJOR ACCOUNT MANAGER Pulse 99 01/21/2025 8:40 AM MAJOR ACCOUNT MANAGER Temperature 36.5 C (97.7 F) 01/21/2025 8:40 AM MAJOR ACCOUNT MANAGER Respiratory Rate 17 01/21/2025 5:47 AM MAJOR ACCOUNT MANAGER Oxygen Saturation 97% 01/21/2025 8:40 AM MAJOR ACCOUNT MANAGER Inhaled Oxygen Concentration - - Weight 73.4 kg (161 lb 13.1 oz) 01/21/2025 5:47 AM MAJOR ACCOUNT MANAGER Height 174 cm (5' 8.5) 01/21/2025 5:47 AM MAJOR ACCOUNT MANAGER Body Mass Index 24.24 01/21/2025 5:47 AM MAJOR ACCOUNT MANAGER documented in this encounter Discharge Instructions * Discharge Instructions* Joan Schulte R.N. - 01/21/2025 8:32 AM MAJOR ACCOUNT MANAGER cCare Following Gamma Knife??? Radiosurgery After [...] Discomfort Unless instructed otherwise, you may take zgdj-kaa-ovkywmz pain relievers in the recommended dose as [...] information, call and speakwith your health careprovider. R ACCOUNT MANAGER documented in this encounter Medications at Time of Discharge acetaminophen (TylenoL) 500 mg tablet Take 500-1,000 mg by mouth 3 (three) times a day as needed. albuterol 90 mcg/actuation inhaler Inhale. 11/21/2024 lisinopriL 10 mg tablet Take 10 mg by mouth. 10/15/2019 multivitamin-mine wqlt-KK-yxumkj (Centrum Silver) 400-250 mcg per chewable tablet Chew 1 tablet daily. simvastatin (Zocor) 20 mg tablet Take 20 mg by mouth. 10/15/2019 triamterene-hydro CHLOROthiazide (Maxzide-25) 37.5-25 mg per tablet Take 1 tablet by mouth. On Hold 06/10/2009 documented as of this encounter OR Notes * Op Note - León Castro M.D. - 01/21/2025 9:03 AM CST LOCATION: [facility], room 215. PRE-OPERATIVE DIAGNOSIS Brain metastases, [...] frame placement, dose planning, and radiation delivery, [id number] León Castro M.D. CT CT Job ID: [id number] R ACCOUNT MANAGER documented in this encounter Plan of Treatment Upcoming Encounters Date Type Department Care Team (Late st Contact Info) Description 03/18/2025 1:20 PM MAJOR ACCOUNT MANAGER Lab Department of Laboratory Medicine and Pathology, [facility], in [address] [phone] Artemio Dunn M.D. [address] [place] [phone] 03/18/2025 3:00 PM MAJOR ACCOUNT MANAGER Office Visit Department of Oncology in [address] [phone] Artemio Dunn M.D. [address] [place] [phone] 03/18/2025 4:00 PM MAJOR ACCOUNT MANAGER Infusion Department of Oncology in [address] [phone] Artemio Dunn M.D. [address] [place] [phone] 04/14/2025 12:20 PM MAJOR ACCOUNT MANAGER Lab Department of Laboratory Medicine and Pathology, [facility] in [place], [place] [address] [place] [phone] Artemio Dunn M.D. [address] [place] [phone] 04/14/2025 2:20 PM MAJOR ACCOUNT MANAGER Office Visit Department of Oncology in [place], [place] [address] [place] [phone] Artemio Dunn M.D. [address] [place] [phone] 04/14/2025 3:00 PM MAJOR ACCOUNT MANAGER Infusion Department of Oncology in [address] [phone] Artemio Dunn M.D. [address] [place] [phone] 05/12/2025 12:50 PM MAJOR ACCOUNT MANAGER Lab Department of Laboratory Medicine and Pathology, [facility] in [address] [phone] Artemio Dunn M.D. [address] [place] [phone] 05/12/2025 3:00 PM MAJOR ACCOUNT MANAGER Office Visit Department of Oncology in [address] [phone] Artemio Dunn M.D. [address] [place] [phone] 05/13/2025 7:00 AM MAJOR ACCOUNT MANAGER Infusion Department of Oncology in [address] [phone] Artemio Dunn M.D. [address] [place] [phone] documented as of this encounter Goals Goal Patient Goal Type Associated Problems Recent Progress Patient-Stated? Author Autogenerat ed Goal Care Plan Autogenerated Problem No Hilary Diaz R.N. documented as of this encounter Procedures Procedure Name Priority Date/Time Associated Diagnosis Comments APPLICATION STEREOTACTIC HEAD FRAME 01/21/2025 5:45 AM MAJOR ACCOUNT MANAGER Secondary Malignant Neoplasm Brain (HCC) GAMMA KNIFE 01/21/2025 5:45 AM MAJOR ACCOUNT MANAGER Secondary Malignant Neoplasm Brain (HCC) documented in this encounter Visit Diagnoses Diagnosis Secondary Malignant Neoplasm Brain (HCC) documented in this encounter Administered Medications Inactive Administered Medications - up to 3 most recent administrations Medication Order MAR Action Action Date Dose Rate Site YYSzcrwahkb-atgqibvkd-ldkgnibylpp 0.375%-1%-1:200,000 (DANIEL COYLE) injection OSM As needed, Starting on Mon01/21/25 at 0642, Intra-Op Given 01/21/2025 6:42 AM MAJOR ACCOUNT MANAGER 16 mL Scalp chlorhexidine 0.12 % mouthwash 15 mL (Peridex) [...] swab is not oversaturated. dexAMETHasone injection (Decadron) As needed, Starting on Mon01/21/25 at 0819, Intra-Op Given 01/21/2025 8:19 AM MAJOR ACCOUNT MANAGER 10 mg LORazepam tablet 1 mg (Ativan) 1 mg, oral, Once, On Mon01/21/25 at 0600, For 1 dose, Pre-Op Given 01/21/2025 5:48 AM MAJOR ACCOUNT MANAGER 1 mg sodium chloride 0.9 % injection 10 mL 10 mL, intravenous, As needed, line care, Starting on Mon01/21/25 at 0538, Pre-Op, Peripheral Intravenous Catheter and Rapid Infusion Catheter, prior to blood sampling, post blood transfusion or post blood sampling Given 01/21/2025 8:27 AM MAJOR ACCOUNT MANAGER 10 mL sodium chloride 0.9 % [...] may contain times in both CDT and MAJOR ACCOUNT MANAGER. Scheduled Medication Order 01/19/2025 01/20/2025 01/21/2025 [...] (Due) PRN Medication Order 01/19/2025 01/20/2025 01/21/2025 AZCmhnzbyfd-preeudzjz-iyrabqzkqer 0.375%-1%-1:200,000 (DANIEL COYLE) injection OSM (CANCELED) As [...] 0819 (Given - Provid er: Zulema Chacon R.N.) sodium chloride 0.9 % injection 10 mL 10 mL, intravenous, As needed, line care, Starting on Mon01/21/25 at 0538, Pre-Op, Peripheral Intravenous Catheter and Rapid Infusion Catheter, prior to blood sampling, post blood transfusion or post blood sampling 0827 (Given - Provid er: Zulema Chacon R.N.) sodium chloride 0.9 % injection 3 mL 3 mL, intravenous, As needed, line care, Starting on Mon01/21/25 at 0538, Pre-Op, Prior to and following infusion and between multiple consecutive infusions: sodium chloride 0.9 % injection documented in this encounter Additional Health Concerns Active Problems Noted Date Diagnosed Date Autogenerated Problem 01/21/2025 documented as of this encounter Care Teams Cotton Bag Clipper Relationship Specialty Start Date End Date Elsewhere, Pcp PCP - General Internal Medicine 01/21/25 documented as of this encounter
--- OUTSIDE RECORDS SUMMARY | 2025-01-28 13:23 | XMS_ITS | Encounter Summary ---
Author Organization [facility] Address [address] [place] [id number] Care Team Providers Care Pump Stitcher Name Role Phone Elsewhere, Pcp Primary Care Provider Unavailabl e Reason for Referral * Outpatient (Routine) - Closed Specialty Diagnoses / Procedures Referred By Danielac t Referred To Contact Diagnoses Cancer Renal Cell Carcinoma Personal History Procedures DX Hip And Pelvis Left 2-3 Views Artemio Dunn M.D. 200 [place] [address] Phone: tel: fax: [facility] Referral ID Status Reason Start Date Expiration Date Visits Re quested Visits Authorized [id number] Closed 01/27/2025 04/29/2026 1 1 T MANAGEMENT LEAD Reason for Visit * Outpatient (Routine) - Closed Specialty Diagnoses / Procedures Referred By Lencho lópez Referred To Contact Diagnoses Cancer Renal Cell Carcinoma Personal History Procedures DX Hip And Pelvis Left 2-3 Views Artemio Dunn M.D. 200 [place] [address] Phone: tel: fax: [facility] Referral ID Status Reason Start Date Expiration Date Visits Re quested Visits Authorized [id number] Closed 01/27/2025 04/29/2026 1 1 Encounter Details Date Type Department Care Team (Latest Contact Info) Description 01/28/2025 1:23 PM ASSET MANAGEMENT LEAD - 01/28/2025 11:59 PM ASSET MANAGEMENT LEAD Hospital Encounter Department of Radiology, [facility], in [place], [place] [address] [place] [address] Artemio Dunn M.D. [address] [place] [address] Cancer Renal Cell Carcinoma Personal History Discharge Disposition: Home or Self Care Social [...] things needed for daily living? No 01/17/2025 [facility] Utilities Answer Date Recorded In the past 12 months has 115 network disks, gas, oil, or water [employer] threatened to shut off services in your home? No 01/17/2025 Housing Stability Answer Date Recorded What is your living situation today? I have a [facility] place to live 01/17/2025 Sex and Gender Information Value Date Recorded Sex Assigned at Male 01/05/2025 9:59 AM CDT Legal Sex Male 11:49 AM ASSET MANAGEMENT LEAD Gender Identity Male 01/05/2025 9:59 AM CDT Sexual Orientation Straight 01/05/2025 9: 59 AM CDT documented as of this encounter Medications at Time of Discharge acetaminophen (TylenoL) 500 mg tablet Take 500-1,000 mg by mouth 3 (three) times a day as needed. albuterol 90 mcg/actuation inhaler Inhale. 11/21/2024 HYDROmorphone (Dilaudid) 2 mg tabletIndication s:Acute Pain Exception Take 1 tablet (2 mg total) by mouth every 4 (four) hours as needed for pain or severe pain or score 7-10 of 10 (pain not relieved by the Tylenol) Indication: Acute Pain Exception. 20 tablet 01/28/2025 lisinopriL 10 mg tablet Take 10 mg by mouth. 10/15/2019 multivitamin-min cpzey-CG-rpdqxo (Centrum Silver) 400-250 mcg per chewable tablet Chew 1 tablet daily. simvastatin (Zocor) 20 mg tablet Take 20 mg by mouth. 10/15/2019 triamterene-hydr oCHLOROthiazide (Maxzide-25) 37.5-25 mg per tablet Take 1 tablet by mouth. On Hold 06/10/2009 dexAMETHasone (Decadron) 2 mg tablet Take 1 tablet (2 mg total) by mouth daily. 14 tablet 01/28/2025 02/17/2025 documented as of this encounter Plan of Treatment Upcoming Encounters Date Type Department Care Team (Late st Contact Info) Description 03/18/2025 1:20 PM ASSET MANAGEMENT LEAD Lab Department of Laboratory Medicine and Pathology, [address] [phone] Artemio Dunn M.D. [address] [place] [phone] 03/18/2025 3:00 PM ASSET MANAGEMENT LEAD Office Visit Department of Oncology in [address] [phone] Artemio Dunn M.D. [address] [place] [phone] 03/18/2025 4:00 PM ASSET MANAGEMENT LEAD Infusion Department of Oncology in [address] [address] Artemio Dunn M.D. [address] [place] [phone] 04/14/2025 12:20 PM ASSET MANAGEMENT LEAD Lab Department of Laboratory Medicine and Pathology, [place], [place] [address] [place] [phone] Artemio Dunn M.D. [address] [place] [phone] 04/14/2025 2:20 PM ASSET MANAGEMENT LEAD Office Visit Department of Oncology in [place], [place] [address] [place] [phone] Artemio Dunn M.D. [address] [place] [phone] 04/14/2025 3:00 PM ASSET MANAGEMENT LEAD Infusion Department of Oncology in [address] [phone] Artemio Dunn M.D. [address] [place] [phone] 05/12/2025 12:50 PM ASSET MANAGEMENT LEAD Lab Department of Laboratory Medicine and Pathology, [facility] in [address] [phone] Artemio Dunn M.D. [address] [place] [phone] 05/12/2025 3:00 PM ASSET MANAGEMENT LEAD Office Visit Department of Oncology in [address] [phone] Artemio Dunn M.D. [address] [place] [phone] 05/13/2025 7:00 AM ASSET MANAGEMENT LEAD Infusion Department of Oncology in [address] [phone] Artemio Dunn M.D. [address] [place] [phone] documented as of this encounter Goals Goal Patient Goal Type Associated Problems Recent Progress Patient-Stated? Author Autogenerat ed Goal Care Plan Autogenerated Problem Hilary White R.N. documented as of this encounter Procedures Procedure Name Priority Date/Time Associated Diagnosis Comments DX HIP AND PELVIS LEFT 2-3 VIEWS RAD - Routine (most inpatients and all outpatients) 01/28/2025 1:49 PM ASSET MANAGEMENT LEAD Cancer Renal Cell Carcinoma Personal History documented in this encounter Results * DX Hip And Pelvis Left 2-3 Views (01/28/2025 1:49 PM ASSET MANAGEMENT LEAD) Anatomical Region Laterality Modality Lower Extremity, Pelvis, Hip , Musculoskeletal RST LOS, Musculoskeletal ARZ LOS, Muskuloskeletal FLA LOS Left Digit al Radiography Impressions 01/28/2025 3:08 PM ASSET MANAGEMENT LEAD As demonstrated on the 12/31/2024 CT, there is a destructive lytic lesion in the root of the superior left pubic ramus. Benign synovial herniation pit left femoral neck. Degenerative arthritis pubic symphysis, sacroiliac joints, and lower lumbar spine. Narrative 01/28/2025 3:08 PM ASSET MANAGEMENT LEAD EXAM: DX HIP AND PELVIS LEFT 2-3 VIEWS Procedure Note Daniel Phipps M.D. - 01/28/2025 EXAM: DX HIP AND PELVIS LEFT 2-3 VIEWS IMPRESSION: As demonstrated on the 12/31/2024 CT, there is a destructive lytic lesionin the root of the superior left pubic ramus. Benign synovial herniationpit left femoral neck. Degenerative arthritis pubic symphysis, sacroiliacjoints, and lower lumbar spine. Artemio Dunn M.D. [facility] PRO CEDURES Final Result documented in this encounter Visit Diagnoses Diagnosis Cancer Renal Cell Carcinoma Personal History documented in this encounter Additional Health Concerns Active Problems Noted Date Diagnosed Date Autogenerated Problem 01/21/2025 documented as of this encounter Care Teams Pump Stitcher Relationship Specialty Start Date End Date Elsewhere, Pcp PCP - General Internal Medicine 01/21/25 documented as of this encounter
--- OUTSIDE RECORDS SUMMARY | 2025-01-28 15:40 | XMS_ITS | Encounter Summary ---
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 200 [place] [address] Phone: tel: fax: [facility] Referral ID Status Reason Start Date Expiration Date Visits Re quested Visits Authorized [id number] Closed 01/28/2025 07/30/2026 1 1 TRIFIER OPERATOR Reason for Visit * Outpatient (Routine) - Closed Specialty Diagnoses / Procedures Referred By Lencho lópez Referred To Contact Oncology Artemio Dunn M.D. 200 [place] [address] Phone: tel: fax: [facility] Referral ID Status Reason Start Date Expiration Date Visits Re quested Visits Authorized [id number] Closed 01/27/2025 07/29/2026 1 1 Encounter Details Date Type Department Care Team ([facility] st Contact Info) Description 01/28/2025 3:40 PM ELECTRIFIER OPERATOR Office Visit Department of Oncology in [place], [place] [address] [place] [phone] Artemio Dunn M.D. 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 No 01/17/2025 [facility] Utilities Answer Date Recorded In the [...] AM CDT Legal Sex Male 11:49 AM ELECTRIFIER OPERATOR Gender Identity Male 01/05/2025 9:59 AM CDT Sexual Orientation Straight 01/05/2025 9: 59 AM CDT documented as of this encounter Progress Notes * Samuel Khan M.D. - 01/28/2025 3:40 PM CST PRIMARY STAFF RECREATION SUPERVISOR: Dr. Dunn SUBJECTIVE CHIEF COMPLAINT / REASON FOR VISIT Sammy Watson is a 74 y.o. male who presents for followup of metastatic renal cell carcinoma. HISTORY OF PRESENT ILLNESS Interval History: Mr. Watson has been experiencing severe left-sided hip pain about 3 times per day for two months. The severity is the same, however frequency is slightly increased over time. He describes the pain as ???excruciating,?? though very responsive to Tylenol. He takes about 30 minutes for pain relief tumor sudden. The pain then becomes tolerable, however Tylenol tends to wear off and less severe pain will recur. He does have periods where he does not have any pain. He has not felt unstable while walking, and has not fallen. He does use a cane for baseline balance issues, not for new pain. Lying down helps relieve the pain. Some activities such as quickly turning or walking can exacerbate pain, however the pain episodes can occur at any time. 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 12/31/2024 Progression/Relapse CT Chest: Numerous pulmonary nodules and a mass in the right lower lobe medially that are new since 2009 are highly concerning for pulmonary metastases New lytic lesions in the thoracic spine are also highly concerning for metastatic disease. CT abdomen/pelvis; Development of a 13.3 cm malignant right retroperitoneal mass with left adrenal, liver, soft tissueand skeletal metastases. MRI brain: 5 mm enhancing lesion in the left frontal lobe, likely a metastasis. 9 mm enhancing extra-axial lesion over the inferior right frontal lobe, likely a meningioma. Nonspecific 6 mm area of enhancement in the left sphenoid bone. Hip Xray redemonstrates destructive lytic lesion of left pubic ramus. OBJECTIVE PHYSICAL EXAMINATION There were no vitals taken for this visit. Gen: well appearing, well-nourished male sitting in exam chair in no acute distress, joined by his Skin: No rash on exposed skin Lungs: Breathing well on room air PSYCH: Mood and affect congruent. Well-dressed and well-groomed. Thought content and processes within normal limits NEURO: Currently without significant pain, does not walk with an antalgic gait. No footdrop, able to ambulate and turn normally. 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 Watson is presenting for his left hip pain, with CT scan and radiograph confirming destructive lytic lesion in the left pubic ramus. His cancer associated pain comes in acute severe episodes about3 times per day. Fortunately, Tylenol has been helping, however it tends to wear off. We will have him be seen by radiation oncology for palliative radiation of the lesion. He can be seen as early as Monday, which is great news. I have also prescribed dexamethasone to help with the inflammatory component of his pain. He was counseled to take this daily with breakfast. He will still take Tylenol up to 3 times per day as his first-line analgesic. I prescribed oral Dilaudid (had oxycodone after his nephrectomy many years ago and had significant GI side effects, so will avoid now) for pain refractory to Tylenol, enough to get him through the radiation process. Otherwise, they are aware that systemic therapy plan is cabozantinib and nivolumab now considering osseous and intracranial metastases. This is pending insurance approval. Timing will depend on insurance and also healing after gamma knife. I spent a total of 40 minutes reviewing the patient's medical records and diagnostic tests, seeing the patient, speaking with the nursing team, placing the orders noted above, coordinating care, and/or documenting in the record It was a pleasure meeting with Mr. Watson today. This case was staffed with Dr. Dunn. Samuel Khan M.D. Hematology/Oncology Fellow, PGY-4 Pager [phone] TRIFIER OPERATOR documented in this encounter Plan of Treatment Upcoming Encounters Date Type Department Care Team (Late st Contact Info) Description 03/18/2025 1:20 PM ELECTRIFIER OPERATOR Lab Department of Laboratory Medicine and Pathology, [facility], in [place], [place] [address] [place] [phone] Artemio Dunn M.D. [address] [place] [phone] 03/18/2025 3:00 PM ELECTRIFIER OPERATOR Office Visit Department of Oncology in [place], [place] [address] [place] [phone] Artemio Dunn M.D. [address] [place] [phone] 03/18/2025 4:00 PM ELECTRIFIER OPERATOR Infusion Department of Oncology in [place], [place] [address] [place] [phone] Artemio Dunn M.D. [address] [place] [phone] 04/14/2025 12:20 PM ELECTRIFIER OPERATOR Lab Department of Laboratory Medicine and Pathology, [facility] in [place], [place] [address] [place] [phone] Artemio Dunn M.D. [address] [place] [phone] 04/14/2025 2:20 PM ELECTRIFIER OPERATOR Office Visit Department of Oncology in [address] [phone] Artemio Dunn M.D. [address] [place] [phone] 04/14/2025 3:00 PM ELECTRIFIER OPERATOR Infusion Department of Oncology in [address] [phone] Artemio Dunn M.D. [address] [place] [phone] 05/12/2025 12:50 PM ELECTRIFIER OPERATOR Lab Department of Laboratory Medicine and Pathology, [facility], in [place], [place] [address] [place] [phone] Artemio Dunn M.D. [address] [place] [phone] 05/12/2025 3:00 PM ELECTRIFIER OPERATOR Office Visit Department of Oncology in [place], [place] [address] [place] [phone] Artemio Dunn M.D. [address] [place] [phone] 05/13/2025 7:00 AM ELECTRIFIER OPERATOR Infusion Department of Oncology in [place], [place] [address] [place] [address] Artemio Dunn M.D. [address] [place] [address] Scheduled Referrals Name Type Priority Associated Diagnoses Order Schedule Radiation Oncology - Palliative / metastatic consult (clinic) Outpatient Referral Routine Pain Cancer Associated Malignant Neoplasm Of Kidney 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 (HCC) Secondary Malignant Neoplasm Bone (HCC) Expected: 01/28/2025, Expires: 04/30/2026 documented as of this encounter Goals Goal Patient Goal Type Associated Problems Recent Progress Patient-Stated? Author Autogenerat ed Goal Care Plan Autogenerated Problem No Hilary Diaz, RMerylN. documented as of this encounter Visit Diagnoses Diagnosis Pain Cancer Associated- Primary Malignant Neoplasm Of Kidney 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 (HCC) Secondary Malignant Neoplasm Bone (HCC) documented in this encounter Additional Health Concerns Active Problems Noted Date Diagnosed Date Autogenerated Problem 01/21/2025 documented as of this encounter Care Teams Sales And Distribution Clerk Relationship Specialty Start Date End Date Elsewhere, Pcp PCP - General Internal Medicine 01/21/25 documented as of this encounter
--- OUTSIDE RECORDS SUMMARY | 2025-01-31 08:08 | XMS_ITS | Encounter Summary ---
Author Organization [facility] Address [address] [place] [address] Care Team Providers Care 3Rd Pressman Name Role Phone Elsewhere, Pcp Primary Care Provider Unavailabl e Reason for Referral * Radiation Therapy (Routine) - Authorized Specialty Diagnoses / Procedures Referred By Lencho lópez Referred To Contact Diagnoses Malignant Neoplasm Of Kidney 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 (HCC) Secondary Malignant Neoplasm Bone (HCC) Cancer Renal Cell Carcinoma Personal History Procedures Management Visit Arie Dunne M.D. [address] [place] [address] Phone: tel: fax: [facility] Referral ID Status Reason Start Date Expiration Date V isits Requested Visits Authorized [id number] Authorized 01/31/2025 05/03/2026 3 3 MAKER * Radiation Therapy (Routine) - Authorized Specialty Diagnoses / Procedures Referred By Lencho lópez Referred To Contact Diagnoses Malignant Neoplasm Of Kidney 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 (HCC) Secondary Malignant Neoplasm Bone (HCC) Cancer Renal Cell Carcinoma Personal History Procedures Initial Rad Onc Treatment Planning CT Simulation MS IMRT RADIOTHERAPY PLAN [place] [address] Phone: tel: fax: [facility] Referral ID Status Reason Start Date Expiration Date V isits Requested Visits Authorized [id number] Authorized 01/31/2025 05/03/2026 2 2 MAKER * Radiation Therapy (Routine) - Closed Specialty Diagnoses / Procedures Referred By Lencho lópez Referred To Contact Diagnoses Malignant Neoplasm Of Kidney 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 (HCC) Secondary Malignant Neoplasm Bone (HCC) Cancer Renal Cell Carcinoma Personal History Procedures Prior Auth Rad Tx MS STEREOTACTIC BODY RADTN DEL MS IMRT RADIOTHERAPY PLAN SBRT Arie Dunne M.D. 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 [address] [place] [address] Phone: tel: fax: [facility] Referral ID Status Reason Start Date Expiration Date Visits Re quested Visits Authorized [id number] Closed 01/28/2025 07/30/2026 1 1 MAKER Reason for Visit * Outpatient (Routine) - Closed Specialty Diagnoses / Procedures Referred By Lencho lópez Referred To Contact Radiation Oncology Diagnoses Pain Cancer Associated Malignant Neoplasm Of Kidney 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 (HCC) Secondary Malignant Neoplasm Bone (HCC) Samuel Khan M.D. [address] [place] [phone] Phone: tel: fax: [facility] Referral ID Status Reason Start Date Expiration Date Visits Re quested Visits Authorized [id number] Closed 01/28/2025 07/30/2026 1 1 Encounter Details Date Type Department Care Team (Latest Contact Info) Description 01/31/2025 8:08 AM VEST MAKER - 01/31/2025 10:59 AM VEST MAKER Hospital Encounter Department of Radiation Oncology in [place], [place] [address] [place] [address] Arie Dunne M.D. [address] [place] [address] Secondary Malignant Neoplasm Bone (HCC) (Primary Dx); Malignant Neoplasm Of Kidney 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 (HCC); Cancer Renal Cell Carcinoma Personal History Social History Tobacco Use Types Packs/Day Years [...] things needed for daily living? No 01/17/2025 [facility] Utilities Answer Date Recorded In the past 12 months has [employer] electric, gas, oil, or water company threatened to shut off services in your home? No 01/17/2025 Housing Stability Answer Date Recorded What is your living situation today? I have a [facility] place to live 01/17/2025 Sex and Gender Information Value Date Recorded Sex Assigned at Male 01/05/2025 9:59 AM CDT Legal Sex Male 11:49 AM VEST MAKER Gender Identity Male 01/05/2025 9:59 AM CDT Sexual Orientation Straight 01/05/2025 9: 59 AM CDT documented as of this encounter Last Filed Vital Signs Vital Sign Reading Time Taken Comments Blood Pressure - - Pulse - - Temperature - - Respiratory Rate - - Oxygen Saturation - - Inhaled Oxygen Concentration - - Weight 74.8 kg (164 lb 14.5 oz) 01/31/2025 8:15 AM VEST MAKER Height - - Body Mass Index 24.71 01/21/2025 5:47 AM VEST MAKER documented in this encounter Medications at Time [...] Take 10 mg by mouth. 10/15/2019 multivitamin-min buokt-DH-bvnnis (Centrum Silver) 400-250 mcg per chewable tablet Chew 1 tablet daily. simvastatin (Zocor) 20 mg tablet Take 20 mg by mouth. 10/15/2019 triamterene-hydr oCHLOROthiazide (Maxzide-25) 37.5-25 mg per tablet Take 1 tablet by mouth. On Hold 06/10/2009 cabozantinib (Cabometyx) 20 mg tabletIndication s:Cancer Renal Cell Carcinoma Personal History Take 2 tablets (40 mg total) by mouth daily. Take 1 hour before, or 2 hours after meals. 60 tablet 2 02/03/2025 02/17/2025 dexAMETHasone (Decadron) 2 mg tablet Take 1 tablet (2 mg total) by mouth daily. 14 tablet 01/28/2025 02/17/2025 documented as of this encounter Consult Notes * Selene Arriaza APRN, C.N.P., D.N.P. - 01/31/2025 8:30 AM CST REQUESTING PROVIDER Samuel Khan M.D. REASON FOR CONSULT Mr. Sammy Watson presents today to discuss radiation therapy options in the setting of metastatic renal cell carcinoma w/ painful osseous bone involvement Collaborating Physician: Dr. Arie Dunne HISTORY OF PRESENT ILLNESS Cancer Staging No matching staging information was found for the patient. Oncology History Other Prison Current Drug Therapy 01/15/2025 Initial Diagnosis Other Hot Stone Setter Current Drug Therapy Malignant Neoplasm Of Kidney [...] 2010 are highly concerning for pulmonary metastases New [...] destructive lytic lesion of left pubic ramus. 02/05/2025 - Radiation Therapy Radiation Therapy Treatment Details (Noted on 01/31/2025) Site: Left Pelvis Technique: No technique specified Goal: No goal specified Planned Treatment Start Date: 02/05/2025 Current Interval History: It was a pleasure to meet with Mr. Sammy Watson today. He presents today c/o left lateral hip pain that started approx. 3-4 weeks ago, it has bene progressively worsening. Currently rating a 1/10,but it will increase to 7/10 at times. The pain is intermittent and radiates down his lateral left leg and stops around his knee. He denies numbness, weakness, or loss of sensation. Mr. Watson has introduced 1000 mg acetaminophen up to 4 times/day, with hydromorphone for breakthrough pain. He takes this on average of once daily. He has been prescribed 2 mg dexamethasone, which he started 2 days ago and has found some relief from. He uses a cane for ambulation. He denies right hip pain. Mr. Watson feels his GK treatment on 01/21/25 went well. He denies side effects from the treatment. Prior radiation therapy. 01/21/2025: Gamma Knife - Hx of inflammatory bowel disease (colitis/crohn's) or collagen vascular disease: No - Patient is able to lie supine without any issues. Denies any past shoulder injuries or limited mobility in arms. - Implanted electronic medical devices: No - IV contrast allergy: NKA Last eGFR lab draw: 52 (01/10/25) solitary kidney ROS Pertinent items are noted in HPI; all other review of systems were negative. CURRENT MEDICATIONS Reviewed and updated in the EMR. ALLERGIES Reviewed and updated in the EMR. PAST MEDICAL HISTORY Medical History[1] SURGICAL HISTORY Surgical History[2] SOCIAL HISTORY Mr. Watson reports that he has never smoked. He has never been exposed to tobacco smoke. He has never used smokeless tobacco. He reports that he does not currently use alcohol. He reports that he doesnot use drugs. FAMILY HISTORY Family History[3] PHYSICAL EXAM Wt 74.8 kg BMI 24.71 kg/m?? Pain assessment: 0 - No pain/10; Location:Left Hip Pleasant male, alert and oriented x3, in no acute distress. ECOG PS 1 Lungs: Unlabored breathing. Neuro: The patient is alert and oriented. Speech is fluent. Affect is appropriate. Gait is within normal limits. 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 Sammy Watson and his , Blaine and daughter, Su to discuss radiation therapy and the role it may have in the above diagnosis. Briefly, Mr. Watson was diagnosed with renal cell carcinoma in 2007, he underwent right radical nephrectomy and lymphadenectomy in 01/2008 for grade 2 clear cell renal cell carcinoma, pT2 pN0. He has now recently diagnosed with metastatic clear cell renal cell carcinoma, involving the brain, a large 13.3 x 10.9 x 13.0 cm retroperitoneal mass, 3 cm left adrenal, liver, and in the left pubic ramus. Mr. Watson has established with Medical Oncology with plans to initiate cabozantinib and nivolumab systemic therapy Mr. Watson has bene referred to Rad Onc for consideration of treatment due to left hip pain. He describes the pain involving the lateral portion of the left hip, the pain radiates down his lateral left leg but does notradiate into the groin. He has found 1000 mg acetaminophen every 6 hours, hydromorphone once daily helpful. He has also been prescribed [address] Arie Dunne and I reviewed his 12/31/2024 CT imaging and offered a course of SBRT 1 Fraction to treat the left pubic ramus metastasis. The rationale for radiotherapy was reviewed in addition to logistics including details about simulation and weekly management visits. We reviewed both acute and termite helper risks including: Acute: Fatigue, pain flare assisted: Bone injury/pathologic fracture, bone marrow suppression Mr. Sammy Watson feels comfortable with what was discussed today, we will move forward with the plan noted below. PLAN: - CT Sim w/ contrast: 01/31 - Treatment to LEFT pubic ramus: 02/05 I provided our contact information. He was seen in collaboration with Dr. Arie Dunne today, please see his note for further details. Care Team Discussed with the patient we work together as a care team of physicians, nurse practitioners/physician assistants, nurses and other intelligence support officer that specialize in this cancer. EDUCATION Ready to learn, no apparent learning barriers were identified; learning preferences include listening. Explained diagnosis and treatment plan; patient expressed understanding of the content. I personally spent 60 minutes in care of the patient today. Time includes both non face to face andface to face patient care. Signed by: Selene Arriaza APRN, C.N.Aurelio, D.N.P. 01/31/2025 1:44 PM VEST MAKER [1] Past Medical History: Diagnosis Date BenignProstatic Hyperplasia Localized 2017 Cancer Renal Cell Carcinoma Personal History 2009 Dyslipidemia NOS 2009 Hypertension NOS 2008 Polyp Colon 2020 [2] Past Surgical History: Procedure Laterality Date APPLICATION STEREOTACTIC HEAD FRAME N/A 01/21/2025 Procedure: APPLICATION STEREOTACTIC HEAD FRAME; Surgeon: León Castro M.D.; Location: [facility] GAMMA KNIFE N/A 01/21/2025 Procedure: GAMMA KNIFE.; Surgeon: León Castro M.D.; Location: [facility] OR KIDNEY SURGERY 2009 OTHER CONVERTED SHX (SEE COMMENT) N/A 02/01/2008 >1. Right radical nephrectomy. 2. Retroperitoneal lymph node dissection. [3] No family history on file. Cosigned by Arie Dunne M.D. at 01/31/2025 3:14 PM VEST MAKER MAKER MAKER Associated attestation - Arie Dunne M.D. - 01/31/2025 3:14 PM VEST MAKER I saw the patient with Selene Arriaza APRN. I was present for or re-performed the History of Present Illness. I saw and evaluated Sammy Watson, participating in the mckoy portions of the service anddid medical decision making. I have reviewed the above documentation and agree or amended. Sammy Watson is a 74 y.o. male with widely metastatic RCC with a painful left hip metastases. Hehas had prior gamma knife RT but nothing adjacent to this lesion. His pain does seem to localize well to the lesion on CT. I've reached out to diagnostic radiology about the possibility of an impending pathologic fracture, but even if that were the case an orthopedic surgery can hopefully be avoided. We discussed the possibility of a pain flare, expected outcomes from palliative RT, and the risk of fracture if the tumor responds too quickly (also discussed decreased weight bearing, he already uses a cane). Plan: - 2400cGy in 1 fraction photon SBRT to the left hip/periacetabular lesion next Monday - Discussed with Medical Oncology about holding off on cabozantinib until after SBRT. I have spent 80 minutes with this patient today in which >50% was spent counseling and coordination of care. Signed by: Arie Dunne MD, MPH, MS Land Lease Information Clerk Airline Hostess, Radiation Oncology [facility], [address] [place] [address], [phone] , Pager: [phone], documented in this encounter Plan of Treatment Upcoming Encounters Date Type Department Care Team (Late st Contact Info) Description 03/18/2025 1:20 PM VEST MAKER Lab Department of Laboratory Medicine and Pathology, [facility], in [place], [place] [address] [place] [phone] Artemio Dunn M.D. [address] [place] [phone] 03/18/2025 3:00 PM VEST MAKER Office Visit Department of Oncology in [place], [place] [address] [place] [phone] Artemio Dunn M.D. [address] [place] [phone] 03/18/2025 4:00 PM VEST MAKER Infusion Department of Oncology in [place], [place] [address] [place] [phone] Artemio Dunn M.D. [address] [place] [phone] 04/14/2025 12:20 PM VEST MAKER Lab Department of Laboratory Medicine and Pathology, [facility] in [place], [place] [address] [place] [phone] Artemio Dunn M.D. [address] [place] [phone] 04/14/2025 2:20 PM VEST MAKER Office Visit Department of Oncology in [place], [place] [address] [place] [phone] Artemio Dunn M.D. [address] [place] [phone] 04/14/2025 3:00 PM VEST MAKER Infusion Department of Oncology in [place], [place] [address] [place] [phone] Artemio Dunn M.D. [address] [place] [phone] 05/12/2025 12:50 PM VEST MAKER Lab Department of Laboratory Medicine and Pathology, [facility], in [place], [place] [address] [place] [phone] Artemio Dunn M.D. [address] [place] [phone] 05/12/2025 3:00 PM VEST MAKER Office Visit Department of Oncology in [place], [place] [address] [place] [phone] Artemio Dunn M.D. [address] [place] [address] 05/13/2025 7:00 AM VEST MAKER Infusion Department of Oncology in [place], [place] [address] [place] [address] Artemio Dunn M.D. [address] [place] [address] Scheduled Orders Name Type Priority Associated Diagnoses Order Schedule Prior Auth Rad Tx Radiation Oncology Routine Malignant Neoplasm Of Kidney 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 (HCC) Secondary Malignant Neoplasm Bone (HCC) Cancer Renal Cell Carcinoma Personal History Ordered: 01/31/2025 Management Visit Radiation Oncology Routine Malignant Neoplasm Of Kidney 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 (HCC) Secondary Malignant Neoplasm Bone (HCC) Cancer Renal Cell Carcinoma Personal History 3 Occurrences starting 01/31/2025 until 05/03/2026 Scheduled Referrals Name Type Priority Associated Diagnoses Order Schedule Radiation Oncology - Palliative / metastatic consult (clinic) Outpatient Referral Routine Once for 1 Occurrences starting 01/31/2025 until 01/31/2025 documented as of this encounter Goals Goal Patient Goal Type Associated Problems Recent Progress Patient-Stated? Author Autogenerat ed Goal Care Plan Autogenerated Problem No Hilary Diaz, RFrancis. documented as of this encounter Results * Initial Rad Onc Treatment Planning CT Simulation (01/31/2025 2:00 PM VEST MAKER) Narrative [facility] - 01/31/2025 2:00 PM VEST MAKER Arie Dunne M.D. 01/31/2025 3:14 PM Initial Rad Onc Treatment Planning CT Simulation Performed by: Arie Dunne M.D. Authorized by: Arie Dunne M.D. Simulation was performed under physician supervision based on physician order in preparation for radiation therapy. Physician was immediately available to provide assistance and direction throughout the procedure. Written consent for treatment was completed or confirmed. The patient was appropriately identified and placed in the treatment position using the necessary immobilization to ensure a reproducible treatment position. Reference gibbons were placed to facilitate marking of isocenter. Area scanned:Pelvis Contrast used for the simulation procedure: IV Patient position:head first supine Custom immobilization: Vac-cassandra Motion management: None Bolus: No CT guidance: Following positioning of the patient, a series of slices was obtained to be utilized in treatment planning. CT images were transferred to the kinkon treatment planning system, after a reference isocenter was determined and marked. Segmentation and treatment planning will take place prior to treatment delivery. Patient set up and imaging was appropriate and completed without incident. Nurses' Aide use:No us Arie Dunne M.D. RADIATION ONCOLOGY BAOE CLAIRE Final Result JAMES gonzalez documented in this encounter Visit Diagnoses Diagnosis Secondary Malignant Neoplasm Bone (HCC)- Primary Malignant Neoplasm Of Kidney 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 (HCC) Cancer Renal Cell Carcinoma Personal History Malignant Neoplasm Of Kidney 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 (HCC) Secondary Malignant Neoplasm Bone (HCC) Cancer Renal Cell Carcinoma Personal History documented in this encounter Additional Health Concerns Active Problems Noted Date Diagnosed Date Autogenerated Problem 01/21/2025 Infection Onset Date Last Indicated Resolved Time Protective Environment 01/29/2025 01/29/2025 documented as of this encounter Care Teams 3Rd Pressman Relationship Specialty Start Date End Date Elsewhere, Pcp PCP - General Internal Medicine 01/21/25 documented as of this encounter
--- OUTSIDE RECORDS SUMMARY | 2025-01-31 13:09 | XMS_ITS | Encounter Summary ---
Author Organization [facility] Address [address] [place] [address] Care Team Providers Care Gsa Coordinator Name Role Phone Elsewhere, Pcp Primary Care Provider Unavailabl e Reason for Visit * Radiation Therapy (Routine) - Authorized Specialty Diagnoses / Procedures Referred By Contac t Referred To Contact Diagnoses Malignant Neoplasm Of Kidney 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 (HCC) Secondary Malignant Neoplasm Bone (HCC) Cancer Renal Cell Carcinoma Personal History Procedures Initial Rad Onc Treatment Planning CT Simulation CA IMRT RADIOTHERAPY PLAN Arie Mir M.D. [address] [place] [address] Phone: tel: fax: [facility] Referral ID Status Reason Start Date Expiration Date V isits Requested Visits Authorized [id number] Authorized 01/31/2025 05/03/2026 2 2 Encounter Details Date Type Department Care Team (Latest Contact Info) Description 01/31/2025 1:09 PM MANAGER SOFTWARE DEVELOPMENT - 01/31/2025 1:32 PM MANAGER SOFTWARE DEVELOPMENT Hospital Encounter Department of Radiation Oncology in [place], [place] [address] [place] [phone] Arianne Baum M.D. [address] [place] [phone] Suzette Hernandes R.N. Malignant Neoplasm Of Kidney 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 (HCC); Secondary Malignant Neoplasm Bone (HCC); Cancer Renal Cell Carcinoma Personal History [...] the past 12 months has th e [employer], gas, oil, or water company threatened to shut off services in your home? No 01/17/2025 Housing Stability Answer Date Recorded What is your living situation today? I have a [facility] place to live 01/17/2025 Sex and Gender Information Value Date Recorded Sex Assigned at Male 01/05/2025 9:59 AM CDT Legal Sex Male 11:49 AM MANAGER SOFTWARE DEVELOPMENT Gender Identity Male 01/05/2025 9:59 AM CDT [...] Take 10 mg by mouth. 10/15/2019 multivitamin-min qepma-GS-ympyov (Centrum Silver) 400-250 mcg per chewable tablet [...] st Contact Info) Description 03/18/2025 1:20 PM MANAGER SOFTWARE DEVELOPMENT Lab Department of Laboratory Medicine and Pathology, [place], [place] [address] [place] [phone] Artemio Dunn M.D. [address] [place] [phone] 03/18/2025 3:00 PM MANAGER SOFTWARE DEVELOPMENT Office Visit Department of Oncology in [place], [place] [address] [place] [phone] Artemio Dunn M.D. [address] [place] [phone] 03/18/2025 4:00 PM MANAGER SOFTWARE DEVELOPMENT Infusion Department of Oncology in [place], [place] [address] [place] [phone] Artemio Dunn M.D. [address] [place] [phone] 04/14/2025 12:20 PM MANAGER SOFTWARE DEVELOPMENT Lab Department of Laboratory Medicine and Pathology, [facility] in [place], [place] [address] [place] [phone] Artemio Dunn M.D. [address] [place] [phone] 04/14/2025 2:20 PM MANAGER SOFTWARE DEVELOPMENT Office Visit Department of Oncology in [address] [phone] Artemio Dunn M.D. [address] [place] [phone] 04/14/2025 3:00 PM MANAGER SOFTWARE DEVELOPMENT Infusion Department of Oncology in [place], [place] [address] [place] [phone] Artemio Dunn M.D. [address] [place] [phone] 05/12/2025 12:50 PM MANAGER SOFTWARE DEVELOPMENT Lab Department of Laboratory Medicine and Pathology, [facility], in [place], [place] [address] [place] [phone] Artemio Dunn M.D. [address] [place] [phone] 05/12/2025 3:00 PM MANAGER SOFTWARE DEVELOPMENT Office Visit Department of Oncology in [place], [place] [address] [place] [phone] Artemio Dunn M.D. [address] [place] [phone] 05/13/2025 7:00 AM MANAGER SOFTWARE DEVELOPMENT Infusion Department of Oncology in [place], [place] [address] [place] [phone] Artemio Dunn M.D. [address] [place] [phone] documented as of this encounter Goals Goal Patient Goal Type Associated Problems Recent Progress Patient-Stated? Author Autogenerat ed Goal Care Plan Autogenerated Problem No Hilary Diaz R.N. documented as of this encounter Visit Diagnoses Diagnosis Malignant Neoplasm Of Kidney 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 (HCC) Secondary Malignant Neoplasm Bone (HCC) Cancer Renal Cell Carcinoma Personal History documented in this encounter Administered Medications Inactive Administered Medications - up to 3 most recent administrations Medication Order MAR Action Action Date Dose Rate Site iohexoL 300 mg iodine/mL solution 1-200 mL (Omnipaque) 1-200 mL, intravenous, Once in imaging, contrast, Starting on Mon01/31/25 at 1353, For 1 dose, Intraprocedure (RAD), Administer 1-200 mL, dosing per medication reference document and per protocol.Indications:Malignant Neoplasm Of Kidney 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 (HCC),Secondary Malignant Neoplasm Bone (HCC),Cancer Renal Cell Carcinoma Personal History Given 01/31/2025 2:00 PM MANAGER SOFTWARE DEVELOPMENT 140 mL NaCl 0.9 % bolus 1-100 mL 1-100 mL, intravenous, at 1-100 mL/hr, Administer over 1 Hours, Once in imaging, other, Give per medication reference and protocol, Starting on Mon01/31/25 at 1353, For 1 dose, Intraprocedure (RAD)Indications:Malignant Neoplasm Of Kidney 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 (HCC),Secondary Malignant Neoplasm Bone (HCC),Cancer Renal Cell Carcinoma Personal History New Bag 01/31/2025 2:00 PM MANAGER SOFTWARE DEVELOPMENT 50 mL 50 mL/hr sodium chloride 0.9 % injection 10 mL 10 mL, intravenous, As needed, line care, Peripheral Intravenous Catheter and Rapid Infusion Catheter, Starting on Mon01/31/25 at 1352, Prior to blood sampling, post blood transfusion or post blood sampling. Given 01/31/2025 2:04 PM MANAGER SOFTWARE DEVELOPMENT 10 mL Given 01/31/2025 2:00 PM MANAGER SOFTWARE DEVELOPMENT 10 mL documented in this encounter Additional Health Concerns Active Problems Noted Date Diagnosed Date Autogenerated Problem 01/21/2025 Infection Onset Date Last Indicated Resolved Time Protective Environment 01/29/2025 01/29/2025 documented as of this encounter Care Teams Gsa Coordinator Relationship Specialty Start Date End Date Elsewhere, Pcp PCP - General Internal Medicine 01/21/25 documented as of this encounter
--- OUTSIDE RECORDS SUMMARY | 2025-01-31 13:33 | XMS_ITS | Encounter Summary ---
Author Organization [facility] Address [address] [place] [address] Care Team Providers Care Pediatrician/Medical Doctor Name Role Phone Elsewhere, Pcp Primary Care [...] IMRT RADIOTHERAPY PLAN Arie Mir M.D. 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 [address] Phone: tel: fax: [facility] Referral ID Status Reason Start Date Expiration Date V isits Requested Visits Authorized [id number] Authorized 01/31/2025 05/03/2026 2 2 Encounter Details Date Type Department Care Team (Latest Contact Info) Description 01/31/2025 1:33 PM COMPUTERIZED MILL MILL RECORDER Hospital Encounter Department of Radiation Oncology in [place], [place] [address] [place] [address] Arie Dunne M.D. [address] [place] [address] Malignant Neoplasm Of Kidney 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 [...] things needed for daily living? No 01/17/2025 [facility] Utilities Answer Date Recorded In the past 12 months has e electric, gas, oil, or water company threatened to shut off services in your home? No 01/17/2025 Housing Stability Answer Date Recorded What is your living situation today? 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 CT images were transferred to the [employer] treatment planning system, after a reference isocenter was determined and marked. Segmentation and treatment planning will take place prior to treatment delivery. Patient set up and imaging was appropriate and completed without incident. Assistant Professor Of Art use:No Cosigned by Arie Dunne M.D. at 01/31/2025 3:14 PM COMPUTERIZED MILL MILL RECORDER UTERIZED MILL MILL RECORDER UTERIZED MILL MILL RECORDER Associated attestation - Arie Dunne M.D. - 01/31/2025 3:14 PM COMPUTERIZED MILL MILL RECORDER Simulation was initiated based on my order, under my direct supervision in preparation for radiation therapy. The patient was placed in the treatment position using the necessary immobilization to ensure a reproducible treatment position. Set-up parameters to be used for daily treatment are outlined above. The procedure was performed under my personal supervision Arie Dunne MD, MPH, MS Cognos Architect Residential Appliance Repair Technician, Radiation Oncology [facility], [address] [place] [address], [phone] , Pager: [phone], documented in this encounter Plan of Treatment Upcoming Encounters Date Type Department Care Team (Late Contact Info) Description 03/18/2025 1:20 PM COMPUTERIZED MILL MILL RECORDER Lab Department of Laboratory Medicine and Pathology, [place], in [place], [place] [address] [place] [address] Artemio Dunn M.D. [address] [place] [phone] 03/18/2025 3:00 PM COMPUTERIZED MILL MILL RECORDER Office Visit Department of Oncology in [place], [place] [address] [place] [phone] Artemio Dunn M.D. [address] [place] [phone] 03/18/2025 4:00 PM COMPUTERIZED MILL MILL RECORDER Infusion Department of Oncology in [place], [place] [address] [place] [phone] Artemio Dunn M.D. [address] [place] [phone] 04/14/2025 12:20 PM COMPUTERIZED MILL MILL RECORDER Lab Department of Laboratory Medicine and Pathology, [facility], in [place], [place] [address] [place] [address] Artemio Dunn M.D. [address] [place] [phone] 04/14/2025 2:20 PM COMPUTERIZED MILL MILL RECORDER Office Visit Department of Oncology in [place], [place] [address] [place] [phone] Artemio Dunn M.D. [address] [place] [phone] 04/14/2025 3:00 PM COMPUTERIZED MILL MILL RECORDER Infusion Department of Oncology in [place], [place] [address] [place] [phone] Artemio Dunn M.D. [address] [place] [phone] 05/12/2025 12:50 PM COMPUTERIZED MILL MILL RECORDER Lab Department of Laboratory Medicine and Pathology, [facility], in [place], [place] [address] [place] [address] Artemio Dunn M.D. [address] [place] [phone] 05/12/2025 3:00 PM COMPUTERIZED MILL MILL RECORDER Office Visit Department of Oncology in [place], [place] [address] [place] [phone] Artemio Dunn M.D. [address] [place] [phone] 05/13/2025 7:00 AM COMPUTERIZED MILL MILL RECORDER Infusion Department of Oncology in [place], [place] [address] [place] [phone] Artemio Dunn M.D. [address] [place] [phone] documented as of this encounter Goals Goal Patient Goal Type Associated Problems Recent Progress Patient-Stated? Author Autogenerat ed Goal Care Plan Autogenerated Problem No Hilary Diaz, RMerylN. 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 01/31/2025 3:14 PM Initial [...] planning. CT images were transferred to the [employer] treatment planning system, after a reference isocenter was determined and marked. Segmentation and treatment planning will take place prior to treatment delivery. Patient set up and imaging was appropriate and completed without incident. Assistant Professor Of Art use:No Arie Dunne M.D. 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
--- OUTSIDE RECORDS SUMMARY | 2025-02-07 16:48 | XMS_ITS | Encounter Summary ---
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 200 [place] [address] Phone: tel: fax: [facility] Referral ID Status Reason Start Date Expiration Date V isits Requested Visits Authorized [id number] Authorized 01/31/2025 05/03/2026 3 3 Encounter Details Date Type Department Care Team (Latest Contact Info) Description 02/07/2025 4:48 PM FIELD CANE SCALER - 02/07/2025 4:49 PM FIELD CANE SCALER Hospital Encounter Department of Radiation Oncology in [place], [place] 200 [place] [address] Arie Dunne M.D. 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 No 01/17/2025 [facility] Utilities Answer Date Recorded In the past 12 months has [employer] electric, gas, oil, or water company threatened to shut off services in your home? No 01/17/2025 Housing Stability Answer Date Recorded What is your living situation today? I have a [facility] place to live 01/17/2025 Sex and Gender Information Value Date Recorded Sex Assigned at Male 01/05/2025 9:59 AM CDT Legal Sex Male 11:49 AM FIELD CANE SCALER Gender Identity Male 01/05/2025 9:59 AM CDT Sexual Orientation Straight 01/05/2025 9: 59 AM CDT documented as of this encounter Medications at Time of Discharge acetaminophen (TylenoL) 500 mg tablet Take 500-1,000 mg by mouth 3 (three) times a day as needed. albuterol 90 mcg/actuation inhaler Inhale. 11/21/2024 cabozantinib (Cabometyx) 40 mg tabletIndication s:Cancer Renal Cell Carcinoma Personal History Take 1 tablet (40 mg total) by mouth daily. Take 1 hour before, or 2 hours after meals. 30 tablet 3 02/17/2025 10:49 AM FIELD CANE SCALER 02/17/2025 HYDROmorphone (Dilaudid) 2 mg tabletIndication s:Acute Pain Exception Take 1 tablet (2 mg total) by mouth every 4 (four) hours as needed for pain or severe pain or score 7-10 of 10 (pain not relieved by the Tylenol) Indication: Acute Pain Exception. 20 tablet 01/28/2025 lidocaine (Lidoderm) 5 % adhesive patch,medicatedI ndications:Fract ure Rib Single Closed Initial Left Place 1 patch on the skin every 12 (twelve) hours. Apply to affected area/rib pain. 14 patch 1 02/05/2025 lisinopriL 10 mg tablet Take 10 mg by mouth. 10/15/2019 multivitamin-min degou-VW-jdynwe (Centrum Silver) 400-250 mcg per chewable tablet [...] 01/28/2025 02/17/2025 documented as of this encounter Progress Notes * Arie Dunne M.D. - 02/07/2025 5:30 PM CST Diagnosis: Left hip bony metastases Radiation Treatment Progress Summary Treatment Course: 2xPelvisSBRT Plan ID Fractions Dose / Fraction (cGy) Dose Treated (cGy) Dose Planned (cGy) First Treatment Last Treatment Elapsed Days [id number] 2400 2400 2400 02/07/2025 02/07/2025 0 Course Summary 02/07/2025 02/07/2025 0 Concurrent systemic therapy: None SUBJECTIVE Sammy Watson 74 y.o. reports no acute side effects immediately after single fraction radiotherapy. OBJECTIVE There were no vitals filed for this visit. PHYSICAL EXAM Alert and oriented x3 No acute distress ASSESSMENT / PLAN The patient tolerated radiotherapy well. Discussed pain flare and risk of fracture, decreasing weight bearing on that . Follow-up with Medical Oncology concerning systemic therapy. Signed by: Arie Dunne MD, MPH, MS Small Stock Facer Ice Skating Coach, Radiation Oncology [facility], [address] [place] [address], [phone] , Pager: [phone], D CANE SCALER documented in this encounter Plan of Treatment Upcoming Encounters Date Type Department Care Team (Late st Contact Info) Description 03/18/2025 1:20 PM FIELD CANE SCALER Lab Department of Laboratory Medicine and Pathology, [address] [phone] Artemio Dunn M.D. [address] [place] [phone] 03/18/2025 3:00 PM FIELD CANE SCALER Office Visit Department of Oncology in [address] [phone] Artemio Dunn M.D. [address] [place] [phone] 03/18/2025 4:00 PM FIELD CANE SCALER Infusion Department of Oncology in [address] [phone] Artemio Dunn M.D. [address] [place] [phone] 04/14/2025 12:20 PM FIELD CANE SCALER Lab Department of Laboratory Medicine and Pathology, [place], [place] [address] [place] [phone] Artemio Dunn M.D. [address] [place] [phone] 04/14/2025 2:20 PM FIELD CANE SCALER Office Visit Department of Oncology in [place], [place] [address] [place] [phone] Artemio Dunn M.D. [address] [place] [phone] 04/14/2025 3:00 PM FIELD CANE SCALER Infusion Department of Oncology in [place], [place] [address] [place] [phone] Artemio Dunn M.D. [address] [place] [phone] 05/12/2025 12:50 PM FIELD CANE SCALER Lab Department of Laboratory Medicine and Pathology, [facility] in [place], [place] [address] [place] [phone] Artemio Dunn M.D. [address] [place] [phone] 05/12/2025 3:00 PM FIELD CANE SCALER Office Visit Department of Oncology in [address] [phone] Artemio Dunn M.D. [address] [place] [phone] 05/13/2025 7:00 AM FIELD CANE SCALER Infusion Department of Oncology in [place], [place] [address] [place] [phone] Artemio Dunn M.D. 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 Author Autogenerat ed Goal Care Plan Autogenerated Problem No Hilary Diaz, RMerylN. 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
--- OUTSIDE RECORDS SUMMARY | 2025-02-07 16:53 | XMS_ITS | Encounter Summary ---
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 200 [place] [address] Phone: tel: fax: [facility] Referral ID Status Reason Start Date Expiration Date Visits Re quested Visits Authorized [id number] Closed 02/05/2025 05/03/2026 1 1 Encounter Details Date Type Department Care Team (Late st Contact Info) Description 02/07/2025 4:53 PM TURN SUPERVISOR Hospital Encounter Department of Radiation Oncology in [place], [place] [address] [place] [phone] Arianne Baum M.D. [address] [place] [phone] Social History Tobacco Use Types Packs/Day Years Used Date Smoking Tobacco: Never Passive Smoke Exposure: Never Smokeless Tobacco: Never Alcohol Use Standard Drinks/Week Comments Not Currently 0 (1 standard drink = 0.6 oz pur e alcohol) PRAPARE - Transportation Answer Date Re corded In the past 12 months, has baljeet castillo of transportation kept you from medical appointments or from getting medications? No 12/20 In the past 12 months, has l ack of transportation kept you from meetings, work, or from getting things needed for daily living? No 01/17/2025 [facility] Utilities Answer Date Recorded In the past 12 months has th e electric, gas, oil, or water company threatened to shut off services in your home? No 01/17/2025 Housing Stability Answer Date Recorded What is your living situation today? I have a [facility] place to live 01/17/2025 Sex and Gender Information Value Date Recorded Sex Assigned at Male 01/05/2025 9:59 AM CDT Legal Sex Male 11:49 AM TURN SUPERVISOR Gender Identity Male 01/05/2025 9:59 AM CDT Sexual Orientation Straight 01/05/2025 9: 59 AM CDT documented as of this encounter Plan of Treatment Upcoming Encounters Date Type Department Care Team (Late st Contact Info) Description 03/18/2025 1:20 PM TURN SUPERVISOR Lab Department of Laboratory Medicine and Pathology, [place], [place] [address] [place] [phone] Artemio Dunn M.D. [address] [place] [phone] 03/18/2025 3:00 PM TURN SUPERVISOR Office Visit Department of Oncology in [address] [phone] Artemio Dunn M.D. [address] [place] [phone] 03/18/2025 4:00 PM TURN SUPERVISOR Infusion Department of Oncology in [address] [phone] Artemio Dunn M.D. [address] [place] [phone] 04/14/2025 12:20 PM TURN SUPERVISOR Lab Department of Laboratory Medicine and Pathology, [facility] in [place], [place] [address] [place] [phone] Artemio Dunn M.D. [address] [place] [phone] 04/14/2025 2:20 PM TURN SUPERVISOR Office Visit Department of Oncology in [place], [place] [address] [place] [phone] Artemio Dunn M.D. [address] [place] [phone] 04/14/2025 3:00 PM TURN SUPERVISOR Infusion Department of Oncology in [place], [place] [address] [place] [phone] Artemio Dunn M.D. [address] [place] [phone] 05/12/2025 12:50 PM TURN SUPERVISOR Lab Department of Laboratory Medicine and Pathology, [facility] in [place], [place] [address] [place] [phone] Artemio Dunn M.D. [address] [place] [phone] 05/12/2025 3:00 PM TURN SUPERVISOR Office Visit Department of Oncology in [address] [phone] Artemio Dunn M.D. [address] [place] [phone] 05/13/2025 7:00 AM TURN SUPERVISOR Infusion Department of Oncology in [address] [phone] Artemio Dunn M.D. [address] [place] [phone] documented as of this encounter Goals Goal [...] documented as of this encounter Care Teams Manager Psychology Relationship Specialty Start Date End Date Elsewhere, Pcp PCP - General Internal Medicine 01/21/25 documented as of this encounter
--- OUTSIDE RECORDS SUMMARY | 2025-02-17 12:30 | XMS_ITS | Encounter Summary ---
Author Organization [facility] Address [address] [place] [address] Care Team Providers Care Rotor Coil Taper Name Role Phone Elsewhere, Pcp Primary Care Provider Unavailabl e Reason for Referral * Outpatient (Routine) - Authorized Specialty Diagnoses / Procedures Referred By Lencho lópez Referred To Contact Oncology Artemio Dunn M.D. 200 [place] [address] Phone: tel: fax: [facility] Referral ID Status Reason Start Date Expiration Date V isits Requested Visits Authorized [id number] Authorized 02/17/2025 08/19/2026 1 1 Scheduling Instructions Please override calendar and schedule for PHR ONC PHARMACIST END - please schedule in morning if possible. AN Reason for Visit * Episode Based Medications (Priority-Phone Follow-up) - Authorized Specialty Diagnoses / Procedures Referred By Contac t Referred To Contact Diagnoses Cancer Renal Cell Carcinoma Personal History Malignant neoplasm of right kidney, except renal pelvis (HCC) Procedures ND NIVOLUMAB INJ Artemio Dunn M.D. 200 [place] [address] Phone: tel: fax: Department of Oncology in [place], [place] 200 [place] [address] Phone: tel: Referral ID Status Reason Start Date Expiration Date V isits Requested Visits Authorized [id number] Authorized 01/20/2025 07/27/2025 4 4 Encounter Details Date Type Department Care Team (Late st Contact Info) Description 02/17/2025 12:30 PM TAGMAN Office Visit Department of Oncology in [place], [place] [address] [place] [address] Artemio Dunn M.D. [address] [place] [address] Mane Matthews, Pharm.D., R.Ph. [address] [place] [phone] Cancer Renal Cell Carcinoma Personal History (Primary Dx) Social History Tobacco Use Types Packs/Day Years Used Date Smoking Tobacco: Never Passive Smoke Exposure: Never Smokeless Tobacco: Never Tobacco Cessation:Counseling Given: Not Answered Alcohol Use Standard Drinks/Week Comments Not Currently [...] things needed for daily living? No 01/17/2025 [facility] Utilities Answer Date Recorded In the past 12 months has e electric, gas, oil, or water company threatened to shut off services in your home? No 01/17/2025 Housing Stability Answer Date Recorded What is your living situation today? I have a [employer] [facility] [employer] place to live 01/17/2025 Sex and Gender Information Value Date Recorded Sex Assigned at Male 01/05/2025 9:59 AM CDT Legal Sex Male 11:49 AM TAGMAN Gender Identity Male 01/05/2025 9:59 AM CDT Sexual Orientation Straight 01/05/2025 9: 59 AM CDT documented as of this encounter Last Filed Vital Signs Vital Sign Reading Time Taken Comments Blood Pressure 106/67 02/17/2025 12:18 PM TAGMAN Pulse 102 02/17/2025 12:18 PM TAGMAN Temperature 36.4 C (97.5 F) 02/17/2025 12:18 PM TAGMAN Respiratory Rate 16 02/17/2025 12:18 PM TAGMAN Oxygen Saturation 92% 02/17/2025 12:18 PM TAGMAN Inhaled Oxygen Concentration - - Weight 71.3 kg (157 lb 3 oz) 02/17/2025 12:18 PM TAGMAN Height 171.6 cm (5' 7.56) 02/17/2025 12:[address] Body Mass Index 24.21 02/17/2025 12:18 PM TAGMAN documented in this encounter Progress Notes * Mane Matthews, Nina.D., R.Ph. - 02/17/2025 12:30 PM CST Medication Management Services (MMS) SUBJECTIVE Sammy Watsno is a 75 y.o. male, who is seen by the [facility] Pharmacist for targeted medication review. He was referred by Artemio Dunn M.D. per departmental standard of care. Patient does NOT appear cognitively impaired at this visit. Patient was at the visit with patient's significant other and patient's daughter. The purpose of the visit is: chemotherapy education. The following portions of the patient's history were reviewed and updated as appropriate: Allergies[1], Current Medications[2], Family History[3], Medical History[4], Social History[5] (including tobacco, alcohol and illicit drug use), Surgical History[6], and Problem List[7]. Oncology Medication Education (In-Person): Cabozantinib/Nivolumab 480 mg every 4 weeks ASSESSMENT / PLAN 1. Medication reconciliation Medication reconciliation was accomplished by review of all medications, prescription and non-prescription including vitamins and supplements from electronic health record (EHR) medication list. 2. Metastatic RCC, planning to initiate cabozantinib, dosing considerations and drug interaction check Dosing Cabozantinib one 40 mg tablet once daily on an empty stomach, 1 hour prior to eating or 2 hours after eating Nivolumab 480 mg IV every 4 weeks Lab Assessment/Monitoring Platelets greater than or equal to 50: Yes ANC greater than or equal to 0.5: Yes Total bilirubin less than 1.8 mg/dL: Yes Serum creatinine less than 1.4 mg/dL: Yes Baseline Urine protein/creatinine ratio less than 2: pending Baseline blood pressure: 106/67 mmHg - on single-agent lisinopril only Drug Interactions None noted 3. Nausea/vomiting prophylaxis A prescription for ondansetron and prochlorperazine were sent to [facility] for patient to have on hand. 4. Education Discussed common side effects of cabozantinib are diarrhea, high blood pressure, voice hoarseness, mouth sores, fatigue, or blisters on hands and feet. Instructed patient to check blood pressure daily and notify our care team if it is consistently > 150/90. To help maintain normal skin healing and turnover, we recommend applying a moisturizing cream containing 20-40% Urea 1-2x/day to your hands and feet as soon as you begin taking the Cabometyx (e.g. Ebanel urea cream, Eucerin Roughness Relief cream, Udderly Smooth Extra Care 20). Discussed common side effects of nivolumab are immune-mediated and include rash, diarrhea, lung changes, and thyroid dysfunction. Drinking enough water is very important to minimize side effects - recommend approximately 60-80 ozof water daily if possible Patient was instructed to contact us know if they develop any side effects. Specialty Pharmacy: [facility] - Patient has drug and will begin tomorrow morning Patient and/or caregiver(s) expressed understanding of, and agreement with plan of care and was provided a verbal summary of these recommendations and was provided a written summary of recommendations via patient online services. Total time spent was 40 minutes, with more than 50% of the time spent on counseling, coordination of care and patient education. Follow-up with pharmacist in two weeks via telephone for TKI toxicity check. [1] No Known Allergies [2] Current Outpatient Medications Medication Sig Dispense Refill acetaminophen (TylenoL) 500 mg tablet Take 500-1,000 mg by mouth 3 (three) times a day as needed. albuterol 90 mcg/actuation inhaler Inhale. cabozantinib (Cabometyx) 40 mg tablet Take 1 tablet (40 mg total) by mouth daily. Take 1 hour before, or 2 hours after meals. 30 tablet 3 dexAMETHasone (Decadron) 2 mg tablet Take 1 tablet (2 mg total) by mouth daily. (Patient not taking: Reported on 02/14/2025) 14 tablet 0 HYDROmorphone (Dilaudid) 2 mg tablet Take 1 tablet (2 mg total) by mouth every 4 (four) hours as needed for pain or severe pain or score 7-10 of 10 (pain not relieved by the Tylenol) Indication: Acute Pain Exception. 20 tablet 0 lidocaine (Lidoderm) 5 % adhesive patch,medicated Place 1 patch on the skin every 12 (twelve) hours. Apply to affected area/rib pain. 14 patch 1 lidocaine 4 % dressing Apply 1 Application topically as needed for pain. lisinopriL 10 mg tablet Take 10 mg by mouth. dqqglzhrfupt-kcpbcnnt-FJ-lutein (Centrum Silver) 400-250 mcg per chewable tablet Chew 1 tablet daily. RX WELCOME SGIKYT-HGJFPCJMX-OP ONLY Welcome packet 1 each 0 simvastatin (Zocor) 20 mg tablet Take 20 mg by mouth. triamterene-hydroCHLOROthiazide (Maxzide-25) 37.5-25 mg per tablet Take 1 tablet by mouth. On Hold (Patient not taking: Reported on 02/14/2025) No current facility-administered medications for this visit. [3] No family history on file. [4] Past Medical History: Diagnosis Date BenignProstatic Hyperplasia Localized 2017 Cancer Renal Cell Carcinoma Personal History 2008 Dyslipidemia NOS 2008 Hypertension NOS 2008 Polyp Colon 2020 [5] Social History Tobacco Use Smoking status: Never Passive exposure: Never Smokeless tobacco: Never Vaping Use Vaping status: never used Substance Use Topics Alcohol use: Not Currently Drug use: Never [6] Past Surgical History: Procedure Laterality Date APPLICATION STEREOTACTIC HEAD FRAME N/A 01/21/2025 Procedure: APPLICATION STEREOTACTIC HEAD FRAME; Surgeon: León Castro M.D.; Location: [facility] GAMMA KNIFE N/A 01/21/2025 Procedure: GAMMA KNIFE.; Surgeon: León Castro M.D.; Location: [facility] KIDNEY SURGERY 2008 OTHER CONVERTED SHX (SEE COMMENT) N/A 02/01/2008 >1. Right radical nephrectomy. 2. Retroperitoneal lymph node dissection. 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 [address] [place] [phone] 03/18/2025 3:00 PM TAGMAN Office Visit Department of Oncology in [place], [place] [address] [place] [address] Artemio Dunn M.D. [address] [place] [phone] 03/18/2025 4:00 PM TAGMAN Infusion Department of Oncology in [place], [place] [address] [place] [address] Artemio Dunn M.D. [address] [place] [phone] 04/14/2025 12:20 PM TAGMAN Lab Department of Laboratory Medicine and Pathology, [facility], in [place], [place] [address] [place] [address] Artemio Dunn M.D. [address] [place] [phone] 04/14/2025 2:20 PM TAGMAN Office Visit Department of Oncology in [place], [place] [address] [place] [phone] Artemio Dunn M.D. [address] [place] [phone] 04/14/2025 3:00 PM TAGMAN Infusion Department of Oncology in [place], [place] [address] [place] [address] Artemio Dunn M.D. [address] [place] [phone] 05/12/2025 12:50 PM TAGMAN Lab Department of Laboratory Medicine and Pathology, [facility], in [place], [place] [address] [place] [address] Artmeio Dunn M.D. [address] [place] [phone] 05/12/2025 3:00 PM TAGMAN Office Visit Department of Oncology in [place], [place] [address] [place] [phone] Artemio Dunn M.D. [address] [place] [phone] 05/13/2025 7:00 AM TAGMAN Infusion Department of Oncology in [place], [place] [address] [place] [phone] Artemio Dunn M.D. [address] [place] [phone] Scheduled Referrals Name Type Priority Associated Diagnoses Orde r Schedule Oncology office visit (clinic) Outpatient Referral Routine Expected: 03/04/2025, Expires: 05/18/2026 documented as of this encounter Goals Goal Patient Goal Type Associated Problems Recent Progress Patient-Stated? Author Autogenerat ed Goal Care Plan Autogenerated Problem No Hilary Diaz, RMerylN. documented as of this encounter Visit Diagnoses Diagnosis Cancer Renal Cell Carcinoma Personal History- Primary documented in this encounter Additional Health Concerns Active Problems Noted Date Diagnosed Date Autogenerated Problem 01/21/2025 Infection Onset Date Last Indicated Resolved Time Protective Environment 01/29/2025 01/29/2025 documented as of this encounter Care Teams Rotor Coil Taper Relationship Specialty Start Date End Date Elsewhere, Pcp PCP - General Internal Medicine 01/21/25 documented as of this encounter
--- OUTSIDE RECORDS SUMMARY | 2025-02-17 13:30 | XMS_ITS | Encounter Summary ---
Author Organization [facility] Address [address] [place] [address] Care Team Providers Care System Configuration Specialist Name Role Phone Elsewhere, Pcp Primary Care Provider Unavailabl e Reason for Visit * Episode Based Medications (Priority-Phone Follow-up) - Authorized Specialty Diagnoses / Procedures Referred By Contac t Referred To Contact Diagnoses Cancer Renal Cell Carcinoma Personal History Malignant neoplasm of right kidney, except renal pelvis (HCC) Procedures IA NIVOLUMAB INJ Artemio Dunn M.D. [address] [place] [phone] Phone: tel: fax: Department of Oncology in [place], [place] [address] [place] [phone] Phone: tel: Referral ID Status Reason Start Date Expiration Date V isits Requested Visits Authorized [id number] Authorized 01/20/2025 07/27/2025 4 4 Encounter Details Date Type Department Care Team (Late st Contact Info) Description 02/17/2025 1:30 PM GUIDE Infusion Department of Oncology in [place], [place] [address] [place] [phone] Artemio Dunn M.D. [address] [place] [phone] Cancer Renal Cell Carcinoma Personal History (Primary Dx); Malignant Neoplasm Of Kidney Not [...] things needed for daily living? No 01/17/2025 [facility] Utilities Answer Date Recorded In the past 12 months has e [employer], gas, oil, or water company threatened to shut off services in your home? No 01/17/2025 Housing Stability Answer Date Recorded What is your living situation today? I have a [facility] place to live 01/17/2025 Sex and Gender Information Value Date Recorded Sex Assigned at Male 01/05/2025 9:59 AM CDT Legal Sex Male 11:49 AM GUIDE Gender Identity Male 01/05/2025 9:59 AM CDT Sexual Orientation Straight 01/05/2025 9: 59 AM CDT documented as of this encounter Plan of Treatment Upcoming Encounters Date Type Department Care Team (Late st Contact Info) Description 03/18/2025 1:20 PM GUIDE Lab Department of Laboratory Medicine and Pathology, [facility], in [place], [place] [address] [place] [phone] Artemio Dunn M.D. [address] [place] [phone] 03/18/2025 3:00 PM GUIDE Office Visit Department of Oncology in [place], [place] [address] [place] [phone] rAtemio Dunn M.D. [address] [place] [phone] 03/18/2025 4:00 PM GUIDE Infusion Department of Oncology in [place], [place] [address] [place] [phone] Artemio Dunn M.D. [address] [place] [phone] 04/14/2025 12:20 PM GUIDE Lab Department of Laboratory Medicine and Pathology, [facility], in [place], [place] [address] [place] [phone] Artemio Dunn M.D. [address] [place] [phone] 04/14/2025 2:20 PM GUIDE Office Visit Department of Oncology in [place], [place] [address] [place] [phone] Artemio Dunn M.D. [address] [place] [phone] 04/14/2025 3:00 PM GUIDE Infusion Department of Oncology in [place], [place] [address] [place] [phone] Artemio Dunn M.D. [address] [place] [phone] 05/12/2025 12:50 PM GUIDE Lab Department of Laboratory Medicine and Pathology, [facility], in [place], [place] [address] [place] [phone] Artemio Dunn M.D. [address] [place] [phone] 05/12/2025 3:00 PM GUIDE Office Visit Department of Oncology in [place], [place] [address] [place] [phone] Artemio Dunn M.D. [address] [place] [phone] 05/13/2025 7:00 AM GUIDE Infusion Department of Oncology in [place], [place] [address] [place] [phone] Artemio Dunn M.D. [address] [place] [phone] documented as of this encounter Goals Goal Patient Goal Type Associated Problems Recent Progress Patient-Stated? Author Autogenerat ed Goal Care Plan Autogenerated Problem No Hilary Diaz R.N. documented as of this encounter Visit Diagnoses Diagnosis Cancer Renal Cell Carcinoma Personal History- Primary Malignant Neoplasm Of Kidney 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 (HCC) documented in this encounter Administered Medications Inactive Administered Medications - up to 3 most recent administrations Medication Order MAR Action Action Date Dose Rate Site nivolumab 480 mg in NaCl 0.9% 158 mL IVPB (Opdivo) 480 mg, intravenous, at 316 mL/hr, Administer over 30 Minutes, Once, On Mon02/17/25 at 1345, For 1 dose, Do not co-administer other drugs through the same infusion line. Give via 0.2 or 0.22 micron filter. Do not shake. Use low protein binding filter.Indications:Cancer Renal Cell Carcinoma Personal History New Bag 02/17/2025 2:08 PM GUIDE 480 mg 316 mL/hr documented in this encounter Additional Health Concerns Active Problems Noted Date Diagnosed Date Autogenerated Problem 01/21/2025 Infection Onset Date Last Indicated Resolved Time Protective Environment 01/29/2025 01/29/2025 documented as of this encounter Care Teams System Configuration Specialist Relationship Specialty Start Date End Date Elsewhere, Pcp PCP - General Internal Medicine 01/21/25 documented as of this encounter
[2025-02-18] VITALS (29 sets, daily range): BP systolic 122–140; BP diastolic 70–74; PULSE 90–114; RESP 16–24; TEMP 36.2–38.1; O2SAT 88–94; BMI 20.3
--- OUTSIDE RECORDS SUMMARY | 2025-02-18 18:27 | XMS_ITS | Encounter Summary ---
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 [address] [place] [address] Phone: tel: fax: [facility] Referral ID Status Reason Start Date Expiration Date Visits Re quested Visits Authorized [id number] Closed 01/02/2025 07/04/2026 1 1 * Outpatient (Routine) - Authorized Specialty Diagnoses / Procedures Referred By Lencho t Referred To Contact General Surgery Diagnoses Hepatomegaly Other Nonspecific Abnormal Finding Of Lung Field Other Specified Disorders Of Bone Unspecified Site Gab oSng M.D. [address] [place] [address] Phone: tel: fax: [facility] Referral ID Status Reason Start Date Expiration Date V isits Requested Visits Authorized [id number] Authorized 01/02/2025 07/04/2026 1 1 Encounter Details Date Type Department Care Team (Latest Contact Info) Description 01/02/2025 [facility] AND [facility] [address] [place] [phone] Gab Song M.D. 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 [address] [place] [phone] 03/18/2025 3:00 PM REFRIGERATING MACHINE OPERATOR Office Visit Department of Oncology in [place], [place] [address] [place] [phone] Artemio Dunn M.D. [address] [place] [phone] 03/18/2025 4:00 PM REFRIGERATING MACHINE OPERATOR Infusion Department of Oncology in [place], [place] [address] [place] [phone] Artemio Dunn M.D. [address] [place] [phone] 04/14/2025 12:20 PM REFRIGERATING MACHINE OPERATOR Lab Department of Laboratory Medicine and Pathology, [facility] in [place], [place] [address] [place] [address] Artemio Dunn M.D. [address] [place] [phone] 04/14/2025 2:20 PM REFRIGERATING MACHINE OPERATOR Office Visit Department of Oncology in [place], [place] [address] [place] [address] Artemio Dunn M.D. [address] [place] [phone] 04/14/2025 3:00 PM REFRIGERATING MACHINE OPERATOR Infusion Department of Oncology in [place], [place] [address] [place] [address] Artemio Dunn M.D. [address] [place] [phone] 05/12/2025 12:50 PM REFRIGERATING MACHINE OPERATOR Lab Department of Laboratory Medicine and Pathology, [facility], in [place], [place] [address] [place] [address] Artemio Dunn M.D. [address] [place] [phone] 05/12/2025 3:00 PM REFRIGERATING MACHINE OPERATOR Office Visit Department of Oncology in [place], [place] [address] [place] [address] Artemio Dunn M.D. [address] [place] [phone] 05/13/2025 7:00 AM REFRIGERATING MACHINE OPERATOR Infusion Department of Oncology in [place], [place] [address] [place] [address] Atremio Dunn M.D. [address] [place] [address] Scheduled Referrals Name Type Priority Associated Diagnoses Orde r Schedule General Surgery Referral Outpatient Referral Routine Hepatomegaly Other Nonspecific Abnormal Finding Of Lung Field Other Specified Disorders Of Bone Unspecified Site Expected: 01/02/2025 (Approximate), Expires: 04/04/2026 Oncology Referral Outpatient Referral Routine Intra Abdominal And Pelvic Swelling Mass And Lump Unspecified Site Solitary Kidney Acquired Malignant Neoplasm Of Kidney Not Pelvis (HCC) Expected: 01/02/2025 (Approximate), Expires: 04/04/2026 documented as of this encounter Visit Diagnoses Diagnosis Hepatomegaly- Primary Other Nonspecific Abnormal Finding Of Lung Field Other Specified Disorders Of Bone Unspecified Site Intra Abdominal And Pelvic Swelling Mass And Lump Unspecified Site 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
--- OUTSIDE RECORDS SUMMARY | 2025-02-18 18:27 | XMS_ITS | Encounter Summary ---
Author Organization [facility] Address [address] [place] [address] Care Team Providers Care Special Procedure Tech Name Role Phone Elsewhere, Pcp Primary Care Provider Unavailabl e Encounter Details Date Type Department Care Team (Late st Contact Info) Description 02/17/2025 Orders Only Department of Oncology in [place], [place] [address] [place] [phone] Tiffany Bell, PMerylA.-C. [address] [place] [phone] Social History Tobacco Use Types Packs/Day Years [...] things needed for daily living? No 01/17/2025 [facility] Utilities Answer Date Recorded In the past 12 months has [facility] electric, gas, oil, or water company threatened to shut off services in your home? No 01/17/2025 Housing Stability Answer Date Recorded What is your living situation today? I have a [facility] place to live 01/17/2025 Sex and Gender Information Value Date Recorded Sex Assigned at Male 01/05/2025 9:59 AM CDT Legal Sex Male 11:49 AM PR INTERN Gender Identity Male 01/05/2025 9:59 AM CDT Sexual Orientation Straight 01/05/2025 9: 59 AM CDT documented as of this encounter Plan of Treatment Upcoming Encounters Date Type Department Care Team (Late st Contact Info) Description 03/18/2025 1:20 PM PR INTERN Lab [facility] of Laboratory Medicine [facility], [facility] [place], [place] [address] [place] [phone] Artemio Dunn M.D. [address] [place] [phone] 03/18/2025 3:00 PM PR INTERN Office Visit Department of Oncology in [place], [place] [address] [place] [phone] Artemio Dunn M.D. [address] [place] [phone] 03/18/2025 4:00 PM PR INTERN Infusion Department of Oncology in [place], [place] [address] [place] [phone] Artemio Dunn M.D. [address] [place] [phone] 04/14/2025 12:20 PM PR INTERN Lab Department of Laboratory Medicine and Pathology, [facility], in [place], [place] [address] [place] [phone] Artemio Dunn M.D. [address] [place] [phone] 04/14/2025 2:20 PM PR INTERN Office Visit Department of Oncology in [place], [place] [address] [place] [phone] Artemio Dunn M.D. [address] [place] [phone] 04/14/2025 3:00 PM PR INTERN Infusion Department of Oncology in [place], [place] [address] [place] [address] Artemio Dunn M.D. [address] [place] [phone] 05/12/2025 12:50 PM PR INTERN Lab Department of Laboratory Medicine and Pathology, [facility] [place], [place] [address] [place] [phone] Artemio Dunn M.D. [address] [place] [phone] 05/12/2025 3:00 PM PR INTERN Office Visit Department of Oncology in [place], [place] [address] [place] [phone] Artemio Dunn M.D. [address] [place] [phone] 05/13/2025 7:00 AM PR INTERN Infusion Department of Oncology in [place], [place] [address] [place] [phone] Artemio Dunn M.D. [address] [place] [phone] documented as of this encounter Goals Goal Patient Goal Type Associated Problems Recent Progress Patient-Stated? Author Autogenerat ed Goal Care Plan Autogenerated Problem Hilary White, RMerylN. documented as of this encounter Visit Diagnoses Not on filedocumented in this encounter Additional Health Concerns Active Problems Noted Date Diagnosed Date Autogenerated Problem 01/21/2025 Infection Onset Date Last Indicated Resolved Time Protective Environment 01/29/2025 01/29/2025 documented as of this encounter Care Teams Special Procedure Tech Relationship Specialty Start Date End Date Elsewhere, Pcp PCP - General Internal Medicine 01/21/25 documented as of this encounter
--- OUTSIDE RECORDS SUMMARY | 2025-02-18 18:27 | XMS_ITS | Encounter Summary ---
Author Organization [facility] Address [address] [place] [address] Care Team Providers Care Lead Ingot Molder Name Role Phone Elsewhere, Pcp Primary Care Provider Unavailabl e Reason for Visit * Reason Onset Date Comments sx back pain 02/18/2025 Encounter Details Date Type Department Care Team (Late st Contact Info) Description 02/18/2025 Clinical Communication Department of Oncology in [place], [place] [address] [place] [address] Yvette Bowman, RMerylNMeryl sx back pain Social History Tobacco Use Types Packs/Day Years [...] things needed for daily living? No 01/17/2025 [facility] Utilities Answer Date Recorded In the past 12 months has e electric, gas, oil, or water company threatened to shut off services in your home? No 01/17/2025 Housing Stability Answer Date Recorded What is your living situation today? I have a [facility] place to live 01/17/2025 Sex and Gender Information Value Date Recorded Sex Assigned at Male 01/05/2025 9:59 AM CDT Legal Sex Male 11:49 AM MECHANICAL UNIT REPAIRER Gender Identity Male 01/05/2025 9:59 AM CDT Sexual Orientation Straight 01/05/2025 9: 59 AM CDT documented as of this encounter Plan of Treatment Upcoming Encounters Date Type Department Care Team (Late st Contact Info) Description 03/18/2025 1:20 PM MECHANICAL UNIT REPAIRER Lab Department of Laboratory Medicine and Pathology, [facility], in [place], [place] [address] [place] [phone] Artemio Dunn M.D. [address] [place] [phone] 03/18/2025 3:00 PM MECHANICAL UNIT REPAIRER Office Visit Department of Oncology in [place], [place] [address] [place] [phone] Artemio Dunn M.D. [address] [place] [phone] 03/18/2025 4:00 PM MECHANICAL UNIT REPAIRER Infusion Department of Oncology in [place], [place] [address] [place] [phone] Artemio Dunn M.D. [address] [place] [phone] 04/14/2025 12:20 PM MECHANICAL UNIT REPAIRER Lab Department of Laboratory Medicine and Pathology, [facility], in [place], [place] [address] [place] [phone] Artemio Dunn M.D. [address] [place] [phone] 04/14/2025 2:20 PM MECHANICAL UNIT REPAIRER Office Visit Department of Oncology in [place], [place] [address] [place] [phone] Artemio Dunn M.D. [address] [place] [phone] 04/14/2025 3:00 PM MECHANICAL UNIT REPAIRER Infusion Department of Oncology in [place], [place] [address] [place] [address] Artemio Dunn M.D. [address] [place] [phone] 05/12/2025 12:50 PM MECHANICAL UNIT REPAIRER Lab Department of Laboratory Medicine and Pathology, [facility] in [place], [place] [address] [place] [address] Artemio Dunn M.D. [address] [place] [phone] 05/12/2025 3:00 PM MECHANICAL UNIT REPAIRER Office Visit Department of Oncology in [place], [place] [address] [place] [address] Artemio Dunn M.D. [address] [place] [phone] 05/13/2025 7:00 AM MECHANICAL UNIT REPAIRER Infusion Department of Oncology in [place], [place] [address] [place] [address] Artemio Dunn M.D. [address] [place] [phone] documented as of this encounter Goals Goal Patient Goal Type Associated Problems Recent Progress Patient-Stated? Author Autogenerat ed Goal Care Plan Autogenerated Problem Hilary White RMerylN. documented as of this encounter Visit Diagnoses Not on filedocumented in this encounter Additional Health Concerns Active Problems Noted Date Diagnosed Date Autogenerated Problem 01/21/2025 Infection Onset Date Last Indicated Resolved Time Protective Environment 01/29/2025 01/29/2025 documented as of this encounter Care Teams Lead Ingot Molder Relationship Specialty Start Date End Date Elsewhere, Pcp PCP - General Internal Medicine 01/21/25 documented as of this encounter
--- OUTSIDE RECORDS SUMMARY | 2025-02-18 18:27 | XMS_ITS | Encounter Summary ---
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) Social History Tobacco Use Types Packs/Day Years Used Date Smoking Tobacco: Never Smokeless Tobacco: Never Sex and Gender Information Value Date Recorded Sex Assigned at Male 01/05/2025 9:59 AM CDT Legal Sex Male 11:49 AM 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 [address] [place] [phone] 03/18/2025 3:00 PM BOILER/CHILLER TECHNICIAN Office Visit Department of Oncology in [place], [place] [address] [place] [phone] Artemio Dunn M.D. [address] [place] [phone] 03/18/2025 4:00 PM BOILER/CHILLER TECHNICIAN Infusion Department of Oncology in [place], [place] [address] [place] [phone] Artemio Dunn M.D. [address] [place] [phone] 04/14/2025 12:20 PM BOILER/CHILLER TECHNICIAN Lab Department of Laboratory Medicine and Pathology, [facility], in [place], [place] [address] [place] [phone] Artemio Dunn M.D. [address] [place] [phone] 04/14/2025 2:20 PM BOILER/CHILLER TECHNICIAN Office Visit Department of Oncology in [place], [place] [address] [place] [phone] Artemio Dunn M.D. [address] [place] [phone] 04/14/2025 3:00 PM BOILER/CHILLER TECHNICIAN Infusion Department of Oncology in [address] [phone] Artemio Dunn M.D. [address] [place] [phone] 05/12/2025 12:50 PM BOILER/CHILLER TECHNICIAN Lab Department of Laboratory Medicine and Pathology, [facility], in [place], [place] [address] [place] [phone] Artemio Dunn M.D. [address] [place] [phone] 05/12/2025 3:00 PM BOILER/CHILLER TECHNICIAN Office Visit Department of Oncology in [place], [place] [address] [place] [phone] Artemio Dunn M.D. [address] [place] [phone] 05/13/2025 7:00 AM BOILER/CHILLER TECHNICIAN Infusion Department of Oncology in [place], [place] [address] [place] [address] Artemio Dunn M.D. 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
--- OUTSIDE RECORDS SUMMARY | 2025-02-18 18:27 | XMS_ITS | Encounter Summary ---
Author Organization [facility] Address [address] [place] [address] Care Team Providers Care Physician Office Secretary Name Role Phone Elsewhere, Pcp Primary Care Provider Unavailabl e Reason for Visit * Reason Onset Date Comments 01/08/2025 Med Onc Appt 01/03/2025 New Reg Path Encounter Details Date Type Department Care Team (Latest Contact Info) Description 01/03/2025 Clinical Communication Department of Oncology in [place], [place] [address] [place] [address] Provider, Unknown 01/08/2025 Med Onc Appt (New Reg Path) Social History Tobacco Use Types Packs/Day Years Used Date Smoking Tobacco: Never Smokeless Tobacco: Never PRAPARE - Transportation Answer Date Re corded In the past 12 months, has l ack of transportation kept you from medical appointments or from getting medications? No 12/20 In the past 12 months, has l ack of transportation kept you from meetings, work, or from getting things needed for daily living? No 01/17/2025 [facility] Utilities Answer Date Recorded In the past 12 months has e electric, gas, oil, or water company threatened to shut off services in your home? No 01/17/2025 Housing Stability Answer Date Recorded What is your living situation today? 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, in [place], [place] [address] [place] [phone] Artemio Dunn M.D. [address] [place] [phone] 03/18/2025 3:00 PM PHYSICAL CHEMISTRY PROFESSOR Office Visit Department of Oncology in [place], [place] [address] [place] [phone] Artemio Dunn M.D. [address] [place] [phone] 03/18/2025 4:00 PM PHYSICAL CHEMISTRY PROFESSOR Infusion Department of Oncology in [place], [place] [address] [place] [phone] Artemio Dunn M.D. [address] [place] [phone] 04/14/2025 12:20 PM PHYSICAL CHEMISTRY PROFESSOR Lab Department of Laboratory Medicine and Pathology, [facility], in [place], [place] [address] [place] [phone] Artemio Dunn M.D. [address] [place] [phone] 04/14/2025 2:20 PM PHYSICAL CHEMISTRY PROFESSOR Office Visit Department of Oncology in [place], [place] [address] [place] [phone] Artemio Dunn M.D. [address] [place] [phone] 04/14/2025 3:00 PM PHYSICAL CHEMISTRY PROFESSOR Infusion Department of Oncology in [place], [place] [address] [place] [phone] Artemio Dunn M.D. [address] [place] [phone] 05/12/2025 12:50 PM PHYSICAL CHEMISTRY PROFESSOR Lab Department of Laboratory Medicine and Pathology, [facility], in [place], [place] [address] [place] [address] Artemio Dunn M.D. [address] [place] [phone] 05/12/2025 3:00 PM PHYSICAL CHEMISTRY PROFESSOR Office Visit Department of Oncology in [place], [place] [address] [place] [phone] Artemio Dunn M.D. [address] [place] [phone] 05/13/2025 7:00 AM PHYSICAL CHEMISTRY PROFESSOR Infusion Department of Oncology in [place], [place] [address] [place] [phone] Artemio Dunn M.D. [address] [place] [phone] documented as of this encounter Visit Diagnoses Not on filedocumented in this encounter Additional Health Concerns Infection Onset Date Last Indicated Resolved Time Protective Environment 01/29/2025 01/29/2025 documented as of this encounter Care Teams Physician Office Secretary Relationship Specialty Start Date End Date Elsewhere, Pcp PCP - General Internal Medicine 01/21/25 documented as of this encounter
--- OUTSIDE RECORDS SUMMARY | 2025-02-18 18:28 | XMS_ITS | Encounter Summary ---
Author Organization [facility] Address [address] [place] [address] Care Team Providers Care Appeals Assistant Name Role Phone Elsewhere, Pcp Primary Care Provider Unavailabl e Encounter Details Date Type Department Care Team (Latest Contact Info) Description 02/14/2025 Specialty Pharmacy [facility] [address] [place] [phone] Maria Ni, Pharm.D., R.Ph. [address] [place] [address] Cancer Renal Cell Carcinoma Personal History (Primary [...] needed for daily living? No 01/17/2025 [facility] [place] [facility] Utilities Answer Date Recorded In the past 12 months has e electric, gas, oil, or water company threatened to shut off services in your home? No 01/17/2025 Housing Stability Answer Date Recorded What is your living situation today? I have a [facility] place to live 01/17/2025 Sex and Gender Information Value Date Recorded Sex Assigned at Male 01/05/2025 9:59 AM CDT Legal Sex Male 11:49 AM COMPUTER PROGRAMMER Gender Identity Male 01/05/2025 9:59 AM CDT Sexual Orientation Straight 01/05/2025 9: 59 AM CDT documented as of this encounter Progress Notes * Maria Ni Pharm.D., R.Ph. - 02/14/2025 1:20 PM CST Note created by pharmacist at order set up and education. UTER PROGRAMMER documented in this encounter Plan of Treatment Upcoming Encounters Date Type Department Care Team (Late st Contact Info) Description 03/18/2025 1:20 PM COMPUTER PROGRAMMER Lab Department of Laboratory Medicine and Pathology, [facility] in [address] [phone] Artemio Dunn M.D. [address] [place] [phone] 03/18/2025 3:00 PM COMPUTER PROGRAMMER Office Visit Department of Oncology in [address] [phone] Artemio Dunn M.D. [address] [place] [phone] 03/18/2025 4:00 PM COMPUTER PROGRAMMER Infusion Department of Oncology in [address] [phone] Artemio Dunn M.D. [address] [place] [phone] 04/14/2025 12:20 PM COMPUTER PROGRAMMER Lab Department of Laboratory Medicine and Pathology, [facility], in [place], [place] [address] [place] [phone] Artemio Dunn M.D. [address] [place] [phone] 04/14/2025 2:20 PM COMPUTER PROGRAMMER Office Visit Department of Oncology in [place], [place] [address] [place] [phone] Artemio Dunn M.D. [address] [place] [phone] 04/14/2025 3:00 PM COMPUTER PROGRAMMER Infusion Department of Oncology in [place], [place] [address] [place] [phone] Artemio Dunn M.D. [address] [place] [phone] 05/12/2025 12:50 PM COMPUTER PROGRAMMER Lab Department of Laboratory Medicine and Pathology, [facility] in [place], [place] [address] [place] [phone] Artemio Dunn M.D. [address] [place] [phone] 05/12/2025 3:00 PM COMPUTER PROGRAMMER Office Visit Department of Oncology in [address] [phone] Artemio Dunn M.D. [address] [place] [phone] 05/13/2025 7:00 AM COMPUTER PROGRAMMER Infusion Department of Oncology in [place], [place] [address] [place] [phone] Artemio Dunn M.D. [address] [place] [phone] documented as of this encounter Goals Goal [...] documented as of this encounter Care Teams Appeals Assistant Relationship Specialty Start Date End Date Elsewhere, Pcp PCP - General Internal Medicine 01/21/25 documented as of this encounter
--- OUTSIDE RECORDS SUMMARY | 2025-02-18 18:28 | XMS_ITS | Encounter Summary ---
Author Organization [facility] Address [address] [place] [address] Care Team Providers Care Oral And Maxillofacial Surgery Resident Name Role Phone Elsewhere, Pcp Primary Care Provider Unavailabl e Reason for Referral * Outpatient (Routine) Specialty Diagnoses / Procedures Referred By [facility] Referred To Contact Oncology Diagnoses Cancer Renal Cell Carcinoma Personal History [facility] [address] [place] [address] Phone: tel: [facility] Referral ID Status Reason Start Date Expiration Date Visits Re quested Visits Authorized Scheduling Instructions Shaun preferred OMS COMPLIANCE DIRECTOR * Outpatient (Routine) Specialty Diagnoses / Procedures [facility] Referred To Contact Oncology Diagnoses Cancer Renal Cell Carcinoma Personal History [facility] [address] [place] [address] Phone: tel: [facility] Referral ID Status Reason Start Date Expiration Date Visits Re quested Visits Authorized Scheduling Instructions Shaun preferred OMS COMPLIANCE DIRECTOR * Outpatient (Routine) Specialty Diagnoses / Procedures [facility] Referred To Contact Oncology Diagnoses Cancer Renal Cell Carcinoma Personal History T [facility] [address] [place] [address] Phone: tel: [facility] Referral ID Status Reason Start Date Expiration Date Visits Re quested Visits Authorized Scheduling Instructions Shaun preferred OMS COMPLIANCE DIRECTOR * Outpatient (Routine) Specialty Diagnoses / Procedures Referred By Lencho lópez Referred To Contact Oncology Diagnoses Cancer Renal Cell Carcinoma Personal History RST [facility]aina [address] [place] [phone] Phone: tel: [facility] Referral ID Status Reason Start Date Expiration Date Visits Re quested Visits Authorized OMS COMPLIANCE DIRECTOR Encounter Details Date Type Department Care Team (Late Contact Info) Description 01/31/2025 Orders Only Department of Oncology in [place], [place] [address] [place] [phone] Mane Matthews, Pharm.D., R.Ph. [address] [place] [phone] Cancer Renal Cell Carcinoma Personal History (Primary [...] things needed for daily living? No 01/17/2025 [facility] Utilities Answer Date Recorded In the past 12 months has [employer], gas, oil, or water [employer] threatened to shut off services in your home? No 01/17/2025 Housing Stability Answer Date Recorded What is your living situation today? I have a [facility] place to live 01/17/2025 Sex and Gender Information Value Date Recorded Sex Assigned at Male 01/05/2025 9:59 AM CDT Legal Sex Male 11:49 AM CUSTOMS COMPLIANCE DIRECTOR Gender Identity Male 01/05/2025 9:59 AM CDT Sexual Orientation Straight 01/05/2025 9: 59 AM CDT documented as of this encounter Plan of Treatment Upcoming Encounters Date Type Department Care Team (Late Contact Info) Description 03/18/2025 1:20 PM CUSTOMS COMPLIANCE DIRECTOR Lab Department of Laboratory Medicine and Pathology, [facility], in [place], [place] [address] [place] [phone] Artemio Dunn M.D. [address] [place] [phone] 03/18/2025 3:00 PM CUSTOMS COMPLIANCE DIRECTOR Office Visit Department of Oncology in [place], [place] [address] [place] [phone] Artemio Dunn M.D. [address] [place] [phone] 03/18/2025 4:00 PM CUSTOMS COMPLIANCE DIRECTOR Infusion Department of Oncology in [place], [place] [address] [place] [phone] Artemio Dunn M.D. [address] [place] [phone] 04/14/2025 12:20 PM CUSTOMS COMPLIANCE DIRECTOR Lab Department of Laboratory Medicine and Pathology, [facility], in [place], [place] [address] [place] [phone] Artemio Dunn M.D. [address] [place] [phone] 04/14/2025 2:20 PM CUSTOMS COMPLIANCE DIRECTOR Office Visit Department of Oncology in [place], [place] [address] [place] [phone] Artemio Dunn M.D. [address] [place] [phone] 04/14/2025 3:00 PM CUSTOMS COMPLIANCE DIRECTOR Infusion Department of Oncology in [place], [place] [address] [place] [phone] Artemio Dunn M.D. [address] [place] [phone] 05/12/2025 12:50 PM CUSTOMS COMPLIANCE DIRECTOR Lab Department of Laboratory Medicine and Pathology, [facility], in [place], [place] [address] [place] [phone] Artemio Dunn M.D. [address] [place] [phone] 05/12/2025 3:00 PM CUSTOMS COMPLIANCE DIRECTOR Office Visit Department of Oncology in [place], [place] [address] [place] [phone] Artemio Dunn M.D. [address] [place] [phone] 05/13/2025 7:00 AM CUSTOMS COMPLIANCE DIRECTOR Infusion Department of Oncology in [place], [place] [address] [place] [phone] Artemio Dunn M.D. [address] [place] [phone] Scheduled Orders Name Type Priority Associated Diagnoses Orde r Schedule CBC with Differential, Blood Lab Routine Cancer Renal Cell Carcinoma Personal History Expected: 03/18/2025, Expires: 03/18/2028 Comprehensive Metabolic Panel Lab Routine Cancer Renal Cell Carcinoma Personal History Expected: 03/18/2025, Expires: 03/18/2026 Bilirubin, Direct Lab Routine Cancer Renal Cell Carcinoma Personal History Expected: 03/18/2025, Expires: 03/18/2026 LD (Lactate Dehydrogenase) Lab Routine Cancer Renal Cell Carcinoma Personal History Expected: 03/18/2025, Expires: 03/18/2026 Thyroid Function [place] Lab Routine Cancer Renal Cell Carcinoma Personal History Expected: 03/18/2025, Expires: 03/18/2026 CBC with Differential, Blood Lab Routine Cancer Renal Cell Carcinoma Personal History Expected: 04/15/2025, Expires: 04/15/2028 Comprehensive Metabolic Panel Lab Routine Cancer Renal Cell Carcinoma Personal History Expected: 04/15/2025, Expires: 04/15/2026 Bilirubin, Direct Lab Routine Cancer Renal Cell Carcinoma Personal History Expected: 04/15/2025, Expires: 04/15/2026 LD (Lactate Dehydrogenase) Lab Routine Cancer Renal Cell Carcinoma Personal History Expected: 04/15/2025, Expires: 04/15/2026 Thyroid Function [place] Lab Routine Cancer Renal Cell Carcinoma Personal History Expected: 04/15/2025, Expires: 04/15/2026 CBC with Differential, Blood Lab Routine Cancer Renal Cell Carcinoma Personal History Expected: 05/13/2025, Expires: 05/13/2028 Comprehensive Metabolic Panel Lab Routine Cancer Renal Cell Carcinoma Personal History Expected: 05/13/2025, Expires: 05/13/2026 Bilirubin, Direct Lab Routine Cancer Renal Cell Carcinoma Personal History Expected: 05/13/2025, Expires: 05/13/2026 LD (Lactate Dehydrogenase) Lab Routine Cancer Renal Cell Carcinoma Personal History Expected: 05/13/2025, Expires: 05/13/2026 Thyroid Function [place] Lab Routine Cancer Renal Cell Carcinoma Personal History Expected: 05/13/2025, Expires: 05/13/2026 Scheduled Referrals Name Type Priority Associated Diagnoses Orde r Schedule Oncology office visit (clinic) Outpatient Referral Routine Cancer Renal Cell Carcinoma Personal History Expected: 02/17/2025, Expires: 05/20/2026 Oncology office visit (clinic) Outpatient Referral Routine Cancer Renal Cell Carcinoma Personal History Expected: 03/18/2025, Expires: 06/18/2026 Oncology office visit (clinic) Outpatient Referral Routine Cancer Renal Cell Carcinoma Personal History Expected: 04/15/2025, Expires: 07/16/2026 Oncology office visit (clinic) Outpatient Referral Routine Cancer Renal Cell Carcinoma Personal History Expected: 05/13/2025, Expires: 08/13/2026 documented as of this encounter Goals Goal [...] documented as of this encounter Care Teams Oral And Maxillofacial Surgery Resident Relationship Specialty Start Date End Date Elsewhere, Pcp PCP - General Internal Medicine 01/21/25 documented as of this encounter
--- OUTSIDE RECORDS SUMMARY | 2025-02-18 18:28 | XMS_ITS | Encounter Summary ---
Author Organization [facility] Address [address] [place] [address] Care Team Providers Care Audio Visual Coordinator Name Role Phone Elsewhere, Pcp Primary Care Provider Unavailabl e Reason for Visit * Reason Onset Date Comments Rx Denial 02/07/2025 Cabometyx 20 mg tablet Encounter Details Date Type Department Care Team (Latest Contact Info) Description 02/07/2025 Clinical Communication Department of Oncology in [place], [place] [address] [place] [address] Artemio Dunn M.D. [address] [place] [phone] Rx Denial (Cabometyx 20 mg tablet ) Social History Tobacco Use Types Packs/Day Years [...] for daily living? No 01/17/2025 [facility] Utilities Answer Date Recorded In the past 12 months has e electric, gas, oil, or water company threatened to shut off services in your home? No 01/17/2025 Housing Stability Answer Date Recorded What is your living situation today? I have a [facility] place to live 01/17/2025 Sex and Gender Information Value Date Recorded Sex Assigned at Male 01/05/2025 9:59 AM CDT Legal Sex Male 11:49 AM HEAD WORKER Gender Identity Male 01/05/2025 9:59 AM CDT Sexual Orientation Straight 01/05/2025 9: 59 AM CDT documented as of this encounter Plan of Treatment Upcoming Encounters Date Type Department Care Team (Late st Contact Info) Description 03/18/2025 1:20 PM HEAD WORKER Lab Department of Laboratory Medicine and Pathology, [facility] in [place], [place] [address] [place] [phone] Artemio Dunn M.D. [address] [place] [phone] 03/18/2025 3:00 PM HEAD WORKER Office Visit Department of Oncology in [address] [phone] Artemio Dunn M.D. [address] [place] [phone] 03/18/2025 4:00 PM HEAD WORKER Infusion Department of Oncology in [address] [phone] Artemio Dunn M.D. [address] [place] [phone] 04/14/2025 12:20 PM HEAD WORKER Lab Department of Laboratory Medicine and Pathology, [facility], in [place], [place] [address] [place] [phone] Artemio Dunn M.D. [address] [place] [phone] 04/14/2025 2:20 PM HEAD WORKER Office Visit Department of Oncology in [place], [place] [address] [place] [phone] Artemio Dunn M.D. [address] [place] [phone] 04/14/2025 3:00 PM HEAD WORKER Infusion Department of Oncology in [place], [place] [address] [place] [phone] Artemio Dunn M.D. [address] [place] [phone] 05/12/2025 12:50 PM HEAD WORKER Lab Department of Laboratory Medicine and Pathology, [facility] in [place], [place] [address] [place] [phone] Artemio Dunn M.D. [address] [place] [phone] 05/12/2025 3:00 PM HEAD WORKER Office Visit Department of Oncology in [place], [place] [address] [place] [phone] Artemio Dunn M.D. [address] [place] [phone] 05/13/2025 7:00 AM HEAD WORKER Infusion Department of Oncology in [place], [place] [address] [place] [phone] Artemio Dunn M.D. [address] [place] [phone] documented as of this encounter Goals Goal Patient Goal Type Associated Problems Recent Progress Patient-Stated? Author Autogenerat ed Goal Care Plan Autogenerated Problem No Hilary Diaz, RMerylNMeryl documented as of this encounter Visit Diagnoses Not on filedocumented in this encounter Additional Health Concerns Active Problems Noted Date Diagnosed Date Autogenerated Problem 01/21/2025 Infection Onset Date Last Indicated Resolved Time Protective Environment 01/29/2025 01/29/2025 documented as of this encounter Care Teams Audio Visual Coordinator Relationship Specialty Start Date End Date Elsewhere, Pcp PCP - General Internal Medicine 01/21/25 documented as of this encounter
--- OUTSIDE RECORDS SUMMARY | 2025-02-18 18:28 | XMS_ITS | Encounter Summary ---
Author Organization [facility] Address [address] [place] [address] Care Team Providers Care Quality Eng Name Role Phone Elsewhere, Pcp Primary Care Provider Unavailabl e Encounter Details Date Type Department Care Team (Late st Contact Info) Description 02/14/2025 Specialty Pharmacy [facility] [address] [place] [phone] Nishant Briceno, Pharm.D., R.Ph. 200 [place] [phone] Social History Tobacco Use Types Packs/Day Years [...] for daily living? No 01/17/2025 [facility] Utilities Answer Date Recorded In the past 12 months has e electric, gas, oil, or water company threatened to shut off services in your home? No 01/17/2025 Housing Stability Answer Date Recorded What is your living situation today? I have a [facility] place to live 01/17/2025 Sex and Gender Information Value Date Recorded Sex Assigned at Male 01/05/2025 9:59 AM CDT Legal Sex Male 11:49 AM HEATING AND COOLING SYSTEMS ENGINEER Gender Identity Male 01/05/2025 9:59 AM CDT Sexual Orientation Straight 01/05/2025 9: 59 AM CDT documented as of this encounter Progress Notes * Nishant Briceno, Pharm.D., R.Ph. - 02/14/2025 11:16 AM CST Note created for purposes of potential enrollment with [facility]. No telephonecontact with patient at this point. ING AND COOLING SYSTEMS ENGINEER documented in this encounter Plan of Treatment Upcoming Encounters Date Type Department Care Team (Late st Contact Info) Description 03/18/2025 1:20 PM HEATING AND COOLING SYSTEMS ENGINEER Lab Department of Laboratory Medicine and Pathology, [facility] in [address] [phone] Artemio Dunn M.D. [address] [place] [phone] 03/18/2025 3:00 PM HEATING AND COOLING SYSTEMS ENGINEER Office Visit Department of Oncology in [address] [phone] Artemio Dunn M.D. [address] [place] [phone] 03/18/2025 4:00 PM HEATING AND COOLING SYSTEMS ENGINEER Infusion Department of Oncology in [address] [phone] Artemio Dunn M.D. [address] [place] [phone] 04/14/2025 12:20 PM HEATING AND COOLING SYSTEMS ENGINEER Lab Department of Laboratory Medicine and Pathology, [facility], in [address] [phone] Artemio Dunn M.D. [address] [place] [phone] 04/14/2025 2:20 PM HEATING AND COOLING SYSTEMS ENGINEER Office Visit Department of Oncology in [place], [place] [address] [place] [phone] Artemio Dunn M.D. [address] [place] [phone] 04/14/2025 3:00 PM HEATING AND COOLING SYSTEMS ENGINEER Infusion Department of Oncology in [place], [place] [address] [place] [phone] Artemio Dunn M.D. [address] [place] [phone] 05/12/2025 12:50 PM HEATING AND COOLING SYSTEMS ENGINEER Lab Department of Laboratory Medicine and Pathology, [facility] in [place], [place] [address] [place] [phone] Artemio Dunn M.D. [address] [place] [phone] 05/12/2025 3:00 PM HEATING AND COOLING SYSTEMS ENGINEER Office Visit Department of Oncology in [address] [phone] Artemio Dunn M.D. [address] [place] [phone] 05/13/2025 7:00 AM HEATING AND COOLING SYSTEMS ENGINEER Infusion Department of Oncology in [place], [place] [address] [place] [phone] Artemio Dunn M.D. [address] [place] [phone] documented as of this encounter Goals Goal [...] documented as of this encounter Care Teams Quality Eng Relationship Specialty Start Date End Date Elsewhere, Pcp PCP - General Internal Medicine 01/21/25 documented as of this encounter
--- OUTSIDE RECORDS SUMMARY | 2025-02-18 18:28 | XMS_ITS | Encounter Summary ---
Author Organization [facility] Address [address] [place] [address] Care Team Providers Care Bed Bug Exterminator Name Role Phone Elsewhere, Pcp Primary Care Provider Unavailabl e Encounter Details Date Type Department Care Team (Late st Contact Info) Description 02/07/2025 Documentation Department of Radiation Oncology in [place], [place] [address] [place] [phone] Selene Arriaza, LILLIAN, C.N.P., D.N.P. [address] [place] [phone] Social History Tobacco Use Types Packs/Day Years [...] things needed for daily living? No 01/17/2025 [facility] Utilities Answer Date Recorded In the past 12 months has e electric, gas, oil, or water company threatened to shut off services in your home? No 01/17/2025 Housing Stability Answer Date Recorded What is your living situation today? I have a [facility] place to live 01/17/2025 Sex and Gender Information Value Date Recorded Sex Assigned at Male 01/05/2025 9:59 AM CDT Legal Sex Male 11:49 AM BAGGAGE CLERK Gender Identity Male 01/05/2025 9:59 AM CDT Sexual Orientation Straight 01/05/2025 9: 59 AM CDT documented as of this encounter Miscellaneous Notes * Radiation Treatment Summary - Selene Arriaza APRN, C.N.P., D.N.P. - 02/07/2025 11:59 PM CST DIAGNOSIS: Diagnosis Plan 1. Secondary Malignant Neoplasm Bone (HCC) 2. Cancer Renal Cell Carcinoma Personal History 3. 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 Arie Dunne Treatment Intent: Palliative Concomitant Therapy: None Radiation Treatment Summary Treatment Course: 2xPelvisSBRT Plan ID Fractions Dose / Fraction (cGy) Dose Treated (cGy) Dose Planned (cGy) First Treatment Last Treatment Elapsed Days [id number] 2400 2400 2400 02/07/2025 02/07/2025 0 Course Summary 02/07/2025 02/07/2025 0 CLINICAL SUMMARY Mr. Watson received the above treatment course in the setting of metastatic renal cell carcinoma. The course of treatment was tolerated well without side effects. RECOMMENDED FOLLOW UP: Primary Medical Oncologist Signed by: Selene Arriaza APRN, Jerad.N.PMeryl, D.N.P., 02/12/2025 11:41 AM BAGGAGE CLERK Cosigned by Arie Dunne M.D. at 02/12/2025 12:06 PM BAGGAGE CLERK AGE CLERK AGE CLERK documented in this encounter Plan of Treatment Upcoming Encounters Date Type Department Care Team (Late st Contact Info) Description 03/18/2025 1:20 PM BAGGAGE CLERK Lab Department of Laboratory Medicine and Pathology, [facility], in [place], [place] [address] [place] [phone] Artemio Dunn M.D. [address] [place] [phone] 03/18/2025 3:00 PM BAGGAGE CLERK Office Visit Department of Oncology in [place], [place] [address] [place] [phone] Artemio Dunn M.D. [address] [place] [phone] 03/18/2025 4:00 PM BAGGAGE CLERK Infusion Department of Oncology in [place], [place] [address] [place] [phone] Artemio Dunn M.D. [address] [place] [phone] 04/14/2025 12:20 PM BAGGAGE CLERK Lab Department of Laboratory Medicine and Pathology, [facility] in [place], [place] [address] [place] [phone] Artemio Dunn M.D. [address] [place] [phone] 04/14/2025 2:20 PM BAGGAGE CLERK Office Visit Department of Oncology in [place], [place] [address] [place] [phone] Artemio Dunn M.D. [address] [place] [phone] 04/14/2025 3:00 PM BAGGAGE CLERK Infusion Department of Oncology in [place], [place] [address] [place] [phone] Artemio Dunn M.D. [address] [place] [phone] 05/12/2025 12:50 PM BAGGAGE CLERK Lab Department of Laboratory Medicine and Pathology, [facility] in [place], [place] [address] [place] [phone] Artemio Dunn M.D. [address] [place] [address] 05/12/2025 3:00 PM BAGGAGE CLERK Office Visit Department of Oncology in [place], [place] [address] [place] [address] Artemio Dunn M.D. [address] [place] [phone] 05/13/2025 7:00 AM BAGGAGE CLERK Infusion Department of Oncology in [place], [place] [address] [place] [address] Artemio Dunn M.D. [address] [place] [phone] documented as of this encounter Goals Goal Patient Goal Type Associated Problems Recent Progress Patient-Stated? 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
--- OUTSIDE RECORDS SUMMARY | 2025-02-18 18:28 | XMS_ITS | Encounter Summary ---
Author Organization [facility] Address [address] [place] [address] Care Team Providers Care Cash Room Clerk Name Role Phone Elsewhere, Pcp Primary Care Provider Unavailabl e Encounter Details Date Type Department Care Team (Late st Contact Info) Description 02/05/2025 Clinical Communication Department of Radiation Oncology in [place], [place] [address] [place] [phone] Arie Dunne M.D. [address] [place] [address] Social History Tobacco Use Types Packs/Day Years [...] things needed for daily living? No 01/17/2025 [facility] Utilities Answer Date Recorded In the past 12 months has e electric, gas, oil, or water company threatened to shut off services in your home? No 01/17/2025 Housing Stability Answer Date Recorded What is your living situation today? I have a [facility] place to live 01/17/2025 Sex and Gender Information Value Date Recorded Sex Assigned at Male 01/05/2025 9:59 AM CDT Legal Sex Male 11:49 AM COMPARATIVE SOCIOLOGY PROFESSOR Gender Identity Male 01/05/2025 9:59 AM CDT Sexual Orientation Straight 01/05/2025 9: 59 AM CDT documented as of this encounter Miscellaneous Notes * Telephone Encounter - Selene Arriaza APRN, C.N.PMeryl, D.N.P. - 02/05/2025 12:21 PM CST Miladis reached out to our team to let us know that Mr. Watson experience an atraumatic rib fracture today, he was rolling over in bed and felt pain on the left side. Fracture was confirmed via xraybut his local team. He is currently resting but has had left chest wall pain up to a 11/27. He is using acetaminophen and hydromorphone. They would like to push his treatment into next week. Lidocaine patches sent to local pharmacy for pain. Will adjust 1 Fx SBRT to Monday. Patient will keep us updated. Plan - Re-schedule 1 Fx SBRT to Monday, 02/07 - Lidocaine patches for rib fracture pain ARATIVE SOCIOLOGY PROFESSOR ARATIVE SOCIOLOGY PROFESSOR * Telephone Encounter - Vee Caban - 02/05/2025 11:14 AM CST Other Reason for Call Caller: Miladis (ADELA on file) Reason for call: Patient's called to let us know that Sammy cracked a few ribs yesterday and he is in a lot of pain. They aren't sure if he will be able to make it to today's appt. They are wondering if someone could call them to discuss. Please call their home phone: [phone] Thank you! Vee ARATIVE SOCIOLOGY PROFESSOR documented in this encounter Plan of Treatment Upcoming Encounters Date Type Department Care Team (Late st Contact Info) Description 03/18/2025 1:20 PM COMPARATIVE SOCIOLOGY PROFESSOR Lab Department of Laboratory Medicine and Pathology, [facility], in [place], [place] [address] [place] [phone] Artemio Dunn M.D. [address] [place] [phone] 03/18/2025 3:00 PM COMPARATIVE SOCIOLOGY PROFESSOR Office Visit Department of Oncology in [place], [place] [address] [place] [phone] Artemio Dunn M.D. [address] [place] [phone] 03/18/2025 4:00 PM COMPARATIVE SOCIOLOGY PROFESSOR Infusion Department of Oncology in [place], [place] [address] [place] [phone] Artemio Dunn M.D. [address] [place] [phone] 04/14/2025 12:20 PM COMPARATIVE SOCIOLOGY PROFESSOR Lab Department of Laboratory Medicine and Pathology, [facility], in [place], [place] [address] [place] [phone] Artemio Dunn M.D. [address] [place] [phone] 04/14/2025 2:20 PM COMPARATIVE SOCIOLOGY PROFESSOR Office Visit Department of Oncology in [place], [place] [address] [place] [phone] Artemio Dunn M.D. [address] [place] [phone] 04/14/2025 3:00 PM COMPARATIVE SOCIOLOGY PROFESSOR Infusion Department of Oncology in [place], [place] [address] [place] [phone] Artemio Dunn M.D. [address] [place] [phone] 05/12/2025 12:50 PM COMPARATIVE SOCIOLOGY PROFESSOR Lab Department of Laboratory Medicine and Pathology, [facility], in [place], [place] [address] [place] [address] Artemio Dunn M.D. [address] [place] [phone] 05/12/2025 3:00 PM COMPARATIVE SOCIOLOGY PROFESSOR Office Visit Department of Oncology in [place], [place] [address] [place] [address] Artemio Dunn M.D. [address] [place] [phone] 05/13/2025 7:00 AM COMPARATIVE SOCIOLOGY PROFESSOR Infusion Department of Oncology in [place], [place] [address] [place] [address] Artemio Dunn M.D. [address] [place] [phone] documented as of this encounter Goals Goal [...] documented as of this encounter Care Teams Cash Room Clerk Relationship Specialty Start Date End Date Elsewhere, Pcp PCP - General Internal Medicine 01/21/25 documented as of this encounter
--- OUTSIDE RECORDS SUMMARY | 2025-02-18 18:28 | XMS_ITS | Encounter Summary ---
Author Organization [facility] Address [address] [place] [address] Care Team Providers Care Insole Department Worker Name Role Phone Elsewhere, Pcp Primary Care Provider Unavailabl e Encounter Details Date Type Department Care Team (Late st Contact Info) Description 01/29/2025 Orders Only Department of Oncology in [place], [place] [address] [place] [phone] Mane Matthews, Pharm.D., R.Ph. [address] [place] [phone] Cancer Renal Cell Carcinoma Personal History (Primary [...] things needed for daily living? No 01/17/2025 [facility] Utilities Answer Date Recorded In the past 12 months has e electric, gas, oil, or water company threatened to shut off services in your home? No 01/17/2025 Housing Stability Answer Date Recorded What is your living situation today? I have a [facility] place to live 01/17/2025 Sex and Gender Information Value Date Recorded Sex Assigned at Male 01/05/2025 9:59 AM CDT Legal Sex Male 11:49 AM SENIOR INVESTIGATOR Gender Identity Male 01/05/2025 9:59 AM CDT Sexual Orientation Straight 01/05/2025 9: 59 AM CDT documented as of this encounter Plan of Treatment Upcoming Encounters Date Type Department Care Team (Late st Contact Info) Description 03/18/2025 1:20 PM SENIOR INVESTIGATOR Lab Department of Laboratory Medicine and Pathology, [facility] in [place], [place] [address] [place] [phone] Artemio Dunn M.D. [address] [place] [phone] 03/18/2025 3:00 PM SENIOR INVESTIGATOR Office Visit Department of Oncology in [place], [place] [address] [place] [phone] Artemio Dunn M.D. [address] [place] [phone] 03/18/2025 4:00 PM SENIOR INVESTIGATOR Infusion Department of Oncology in [address] [phone] Artemio Dunn M.D. [address] [place] [phone] 04/14/2025 12:20 PM SENIOR INVESTIGATOR Lab Department of Laboratory Medicine and Pathology, [facility] in [place], [place] [address] [place] [phone] Artemio Dunn M.D. [address] [place] [phone] 04/14/2025 2:20 PM SENIOR INVESTIGATOR Office Visit Department of Oncology in [place], [place] [address] [place] [phone] Artemio Dunn M.D. [address] [place] [phone] 04/14/2025 3:00 PM SENIOR INVESTIGATOR Infusion Department of Oncology in [place], [place] [address] [place] [address] Artemio Dunn M.D. [address] [place] [phone] 05/12/2025 12:50 PM SENIOR INVESTIGATOR Lab Department of Laboratory Medicine and Pathology, [facility] in [place], [place] [address] [place] [address] Artemio Dunn M.D. [address] [place] [phone] 05/12/2025 3:00 PM SENIOR INVESTIGATOR Office Visit Department of Oncology in [place], [place] [address] [place] [phone] Artemio Dunn M.D. [address] [place] [phone] 05/13/2025 7:00 AM SENIOR INVESTIGATOR Infusion Department of Oncology in [place], [place] [address] [place] [phone] Artemio Dunn M.D. [address] [place] [phone] documented as of this encounter Goals Goal [...] documented as of this encounter Care Teams Insole Department Worker Relationship Specialty Start Date End Date Elsewhere, Pcp PCP - General Internal Medicine 01/21/25 documented as of this encounter
--- OUTSIDE RECORDS SUMMARY | 2025-02-18 18:28 | XMS_ITS | Encounter Summary ---
Author Organization [facility] Address [address] [place] [address] Care Team Providers Care Chief Physical Therapist Name Role Phone Elsewhere, Pcp Primary Care Provider Unavailabl e Reason for Visit * Reason Onset Date Comments Medication dispensed 02/14/2025 Encounter Details Date Type Department Care Team (Latest Contact Info) Description 02/14/2025 Clinical Communication [facility] [address] [place] [address] Eliazar Lemos C.Ph.T. [address] [place] [address] Medication dispensed Social History Tobacco Use Types Packs/Day Years [...] things needed for daily living? No 01/17/2025 [facility] Utilities Answer Date Recorded In the past 12 months has [facility] electric, gas, oil, or water company threatened to shut off services in your home? No 01/17/2025 Housing Stability Answer Date Recorded What is your living situation today? I have a [facility] place to live 01/17/2025 Sex and Gender Information Value Date Recorded Sex Assigned at Male 01/05/2025 9:59 AM CDT Legal Sex Male 11:49 AM TOMATO PASTE MAKER Gender Identity Male 01/05/2025 9:59 AM CDT Sexual Orientation Straight 01/05/2025 9: 59 AM CDT documented as of this encounter Plan of Treatment Upcoming Encounters Date Type Department Care Team (Late st Contact Info) Description 03/18/2025 1:20 PM TOMATO PASTE MAKER Lab Department of Laboratory Medicine and Pathology, [facility] in [place], [place] [address] [place] [phone] Artemio Dunn M.D. [address] [place] [phone] 03/18/2025 3:00 PM TOMATO PASTE MAKER Office Visit Department of Oncology in [place], [place] [address] [place] [phone] Artemio Dunn M.D. [address] [place] [phone] 03/18/2025 4:00 PM TOMATO PASTE MAKER Infusion Department of Oncology in [address] [phone] Artemio Dunn M.D. [address] [place] [phone] 04/14/2025 12:20 PM TOMATO PASTE MAKER Lab Department of Laboratory Medicine and Pathology, [facility], in [place], [place] [address] [place] [phone] Artemio Dunn M.D. [address] [place] [phone] 04/14/2025 2:20 PM TOMATO PASTE MAKER Office Visit Department of Oncology in [place], [place] [address] [place] [phone] Artemio Dunn M.D. [address] [place] [phone] 04/14/2025 3:00 PM TOMATO PASTE MAKER Infusion Department of Oncology in [place], [place] [address] [place] [phone] Artemio Dunn M.D. [address] [place] [phone] 05/12/2025 12:50 PM TOMATO PASTE MAKER Lab Department of Laboratory Medicine and Pathology, [facility] in [place], [place] [address] [place] [phone] Artemio Dunn M.D. [address] [place] [phone] 05/12/2025 3:00 PM TOMATO PASTE MAKER Office Visit Department of Oncology in [place], [place] [address] [place] [phone] Artemio Dunn M.D. [address] [place] [phone] 05/13/2025 7:00 AM TOMATO PASTE MAKER Infusion Department of Oncology in [place], [place] [address] [place] [phone] Artemio Dunn M.D. [address] [place] [phone] documented as of this encounter Goals Goal [...] documented as of this encounter Care Teams Chief Physical Therapist Relationship Specialty Start Date End Date Elsewhere, Pcp PCP - General Internal Medicine 01/21/25 documented as of this encounter
--- OUTSIDE RECORDS SUMMARY | 2025-02-18 18:28 | XMS_ITS ---
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
--- OUTSIDE RECORDS SUMMARY | 2025-02-18 18:28 | XMS_ITS | Encounter Summary ---
Author Organization [facility] Address [address] [place] [address] Care Team Providers Care Personnel Counselor Name Role Phone Elsewhere, Pcp Primary Care Provider Unavailabl e Encounter Details Date Type Department Care Team (Late st Contact Info) Description 02/14/2025 Specialty Pharmacy [facility] [address] [place] [address] Eliazar Lemos, C.Ph.T. [address] [place] [address] Social History Tobacco Use Types Packs/Day Years [...] things needed for daily living? No 01/17/2025 [facility] Utilities Answer Date Recorded In the past 12 months has e electric, gas, oil, or water company threatened to shut off services in your home? No 01/17/2025 Housing Stability Answer Date Recorded What is your living situation today? I have a [facility] place to live 01/17/2025 Sex and Gender Information Value Date Recorded Sex Assigned at Male 01/05/2025 9:59 AM CDT Legal Sex Male 11:49 AM CHRISTMAS BELL RINGER Gender Identity Male 01/05/2025 9:59 AM CDT Sexual Orientation Straight 01/05/2025 9: 59 AM CDT documented as of this encounter Progress Notes * Eliazar Lemos C.Ph.T. - 02/14/2025 1:17 PM CST Encounter created for purposes of refill coordination. Changes to allergies: No Changes to medications: No Admitted to Hospital/SNF: No STMAS BELL RINGER documented in this encounter Plan of Treatment Upcoming Encounters Date Type Department Care Team (Late st Contact Info) Description 03/18/2025 1:20 PM CHRISTMAS BELL RINGER Lab Department of Laboratory Medicine and Pathology, [address] [phone] Artemio Dunn M.D. [address] [place] [phone] 03/18/2025 3:00 PM CHRISTMAS BELL RINGER Office Visit Department of Oncology in [address] [phone] Artemio Dunn M.D. [address] [place] [phone] 03/18/2025 4:00 PM CHRISTMAS BELL RINGER Infusion Department of Oncology in [address] [phone] Artemio Dunn M.D. [address] [place] [phone] 04/14/2025 12:20 PM CHRISTMAS BELL RINGER Lab Department of Laboratory Medicine and Pathology, [facility] in [place], [place] [address] [place] [phone] Artemio Dunn M.D. [address] [place] [phone] 04/14/2025 2:20 PM CHRISTMAS BELL RINGER Office Visit Department of Oncology in [place], [place] [address] [place] [phone] Artemio Dunn M.D. [address] [place] [phone] 04/14/2025 3:00 PM CHRISTMAS BELL RINGER Infusion Department of Oncology in [place], [place] [address] [place] [phone] Artemio Dunn M.D. [address] [place] [phone] 05/12/2025 12:50 PM CHRISTMAS BELL RINGER Lab Department of Laboratory Medicine and Pathology, [facility] in [place], [place] [address] [place] [phone] Artemio Dunn M.D. [address] [place] [phone] 05/12/2025 3:00 PM CHRISTMAS BELL RINGER Office Visit Department of Oncology in [address] [phone] Artemio Dunn M.D. [address] [place] [phone] 05/13/2025 7:00 AM CHRISTMAS BELL RINGER Infusion Department of Oncology in [place], [place] [address] [place] [phone] Artemio Dunn M.D. [address] [place] [phone] documented as of this encounter Goals Goal [...] documented as of this encounter Care Teams Personnel Counselor Relationship Specialty Start Date End Date Elsewhere, Pcp PCP - General Internal Medicine 01/21/25 documented as of this encounter
--- OUTSIDE RECORDS SUMMARY | 2025-02-18 18:28 | XMS_ITS | Encounter Summary ---
Author Organization [facility] Address [address] [place] [address] Care Team Providers Care Naval Gunfire Liaison Officer Name Role Phone Elsewhere, Pcp Primary Care Provider Unavailabl e Reason for Referral * Medication Prior Authorization - Closed Specialty Diagnoses / Procedures Referred By Conthonorio t Referred To Contact Diagnoses Cancer Renal Cell Carcinoma Personal History Artemio Dunn M.D. [address] [place] [phone] Phone: tel: fax: Referral ID Status Reason Start Date Expiration Date Visits Re quested Visits Authorized [id number] Closed 1 1 ITY INTERN Encounter Details Date Type Department Care Team (Late st Contact Info) Description 02/07/2025 Orders Only Department of Oncology in [place], [place] [address] [place] [phone] Mane Matthews, Pharm.D., R.Ph. [address] [place] [phone] Cancer Renal Cell Carcinoma Personal History (Primary Dx); Other Electrical Tests Supervisor Current Drug Therapy Social History Tobacco Use Types Packs/Day Years [...] for daily living? No 01/17/2025 [facility] Utilities Answer Date Recorded In the past 12 months has e electric, gas, oil, or water company threatened to shut off services in your home? No 01/17/2025 Housing Stability Answer Date Recorded What is your living situation today? I have a [facility] place to live 01/17/2025 Sex and Gender Information Value Date Recorded Sex Assigned at Male 01/05/2025 9:59 AM CDT Legal Sex Male 11:49 AM QUALITY INTERN Gender Identity Male 01/05/2025 9:59 AM CDT Sexual Orientation Straight 01/05/2025 9: 59 AM CDT documented as of this encounter Plan of Treatment Upcoming Encounters Date Type Department Care Team (Late st Contact Info) Description 03/18/2025 1:20 PM QUALITY INTERN Lab Department of Laboratory Medicine and Pathology, [place], [place] [address] [place] [phone] Artemio Dunn M.D. [address] [place] [phone] 03/18/2025 3:00 PM QUALITY INTERN Office Visit Department of Oncology in [place], [place] [address] [place] [phone] Artemio Dunn M.D. [address] [place] [phone] 03/18/2025 4:00 PM QUALITY INTERN Infusion Department of Oncology in [place], [place] [address] [place] [phone] Artemio Dunn M.D. [address] [place] [phone] 04/14/2025 12:20 PM QUALITY INTERN Lab Department of Laboratory Medicine and Pathology, [place], [place] [address] [place] [phone] Artemio Dunn M.D. [address] [place] [phone] 04/14/2025 2:20 PM QUALITY INTERN Office Visit Department of Oncology in [place], [place] [address] [place] [phone] Artemio Dunn M.D. [address] [place] [phone] 04/14/2025 3:00 PM QUALITY INTERN Infusion Department of Oncology in [place], [place] [address] [place] [phone] Artemio Dunn M.D. [address] [place] [phone] 05/12/2025 12:50 PM QUALITY INTERN Lab Department of Laboratory Medicine and Pathology, [facility] in [place], [place] [address] [place] [phone] Artemio Dunn M.D. [address] [place] [phone] 05/12/2025 3:00 PM QUALITY INTERN Office Visit Department of Oncology in [address] [phone] Artemio Dunn M.D. [address] [place] [phone] 05/13/2025 7:00 AM QUALITY INTERN Infusion Department of Oncology in [address] [phone] Artemio Dunn M.D. [address] [place] [phone] documented as of this encounter Goals Goal Patient Goal Type Associated Problems Recent Progress Patient-Stated? Author Autogenerat ed Goal Care Plan Autogenerated Problem No Hilary Diaz R.N. documented as of this encounter Results * (ABNORMAL) Protein/Creatinine Ratio, Random, Urine (02/17/2025 2:23 PM QUALITY INTERN) Protein, Total, Random, U 61 mg/dL 02/17/2025 3:26 PM QUALITY INTERN DTL Creatinine, Random, U 423(H) 16 - 326 mg/dL 02/17/2025 3:26 PM QUALITY INTERN DTL Protein/Creatin ine Ratio 0.14 <0.18 mg/mg 02/17/2025 3:26 PM QUALITY INTERN DTL Urine (Urine, Midstream) 02/17/2025 2:23 PM QUALITY INTERN 02/17/2025 2:48 PM QUALITY INTERN Artemio Dunn M.D. LAB URINE ORDERABLES Final Result [facility] [place] 200 [place] [address], [facility] [address] [place] [address] * (ABNORMAL) Urinalysis, with Microscopic: Urine, Midstream (02/17/2025 2:23 PM QUALITY INTERN) Source Urine, Urine, Midstream 02/17/2025 2:48 PM QUALITY INTERN DTL Color, U Yellow 02/17/2025 2:48 PM QUALITY INTERN DTL Clarity, U Clear 02/17/2025 2:48 PM QUALITY INTERN DTL Protein, U 61(H) <26 mg/dL 02/17/2025 3:26 PM QUALITY INTERN DTL Protein/Osmol ality 1.29(H) <0.42 ratio 02/17/2025 3:26 PM QUALITY INTERN DTL Predicted 24 HR Protein, U 1202(H) <229 mg/24 h 02/17/2025 3:26 PM QUALITY INTERN DTL Predicted Range 382-3788 mg/24 h 02/17/2025 3:26 PM QUALITY INTERN DTL Comment Micro done on <10 mL 02/17/2025 3:58 PM QUALITY INTERN DTL Urine (Urine, Midstream) 02/17/2025 2:23 PM QUALITY INTERN 02/17/2025 2:48 PM QUALITY INTERN us Artemio Dunn M.D. LAB URINE ORDERABLES Final Result [facility] [place] [address] [place] [address], [facility] [address] [place] [address] documented in this encounter Visit Diagnoses Diagnosis Cancer Renal Cell Carcinoma Personal History- Primary Other Electrical Tests Supervisor Current Drug Therapy documented in this encounter Additional Health Concerns Active Problems Noted Date Diagnosed Date Autogenerated Problem 01/21/2025 Infection Onset Date Last Indicated Resolved Time Protective Environment 01/29/2025 01/29/2025 documented as of this encounter Care Teams Naval Gunfire Liaison Officer Relationship Specialty Start Date End Date Elsewhere, Pcp PCP - General Internal Medicine 01/21/25 documented as of this encounter
--- OUTSIDE RECORDS SUMMARY | 2025-02-18 18:28 | XMS_ITS | Clinical Summary ---
Author Organization [facility] Address [address], [place] [address] Care Team Providers Care Keeler Polygraph Operator Name Role Phone Gab Song MD Primary Care Provider + [phone] Source Comments You are receiving this document as you are listed as the primary care provider,follow-up provider, or the patient has been referred to you for consultation.This is in compliance with the Medicare and[facility] Cent[facility] EHR Incentive Program,which states Providers who transition their patient to another setting of careor provider of care or refers their patient to another provider of care shouldprovide summary care record for each transition of care or referral. [facility] Allergies No known active allergies Medications lisinopril (ZESTRIL) 10 MG tablet Take 10 mg by mouth daily. 10/15/2019 Active simvastatin (ZOCOR) 20 MG tablet Take 20 mg by mouth daily at bedtime. at bedtime 10/15/2019 Active triamterene-hyd rochlorothiazid e (MAXZIDE-25) 37.5-25 MG tablet Take 1 Tablet by mouth daily. 10/15/2019 Active acetaminophen (TYLENOL) 500 MG tablet Take 1-2 Tablets by mouth three times a day as needed for Pain. Active Active Problems Problem Noted Date Diagnosed Date Single kidney 12/18/2019 Osteoarthritis of fingers of hands, bilateral DJD (degenerative joint disease) 12/18/2019 Social History Tobacco Use Types Packs/Day Years Used Date Smoking Tobacco: Never Sex and Gender Information Value Date Recorded Sex Assigned at Not on file Legal Sex Male 10:19 AM CDT Gender Identity Not on file Sexual Orientation Not on file Last Filed Vital Signs Vital Sign Reading Time Taken Comments Blood Pressure 139/82 12/18/2019 1:21 PM CDT Pulse 80 12/18/2019 1:21 PM CDT Temperature 36.8 C (98.2 F) 12/18/2019 1:21 PM CDT Respiratory Rate - - Oxygen Saturation - - Inhaled Oxygen Concentration - - Weight 93.4 kg (206 lb) 12/18/2019 1:21 PM CDT Height 177.2 cm (5' 9.75) 12/18/2019 1:21 PM CD T Body Mass Index 29.77 12/18/2019 1:21 PM CDT Plan of Treatment Health Maintenance Due Date Last Done Comments Colon Cancer Screening Plan Due 1950 Hep C Screening (Preventive Services) 1950 Adult Preventive Visit 02/12/1970 Cholesterol 02/12/1987 Zoster/Shingles Vaccine (2 o f 3) 01/16/2014 11/21/2013 COVID-19 Vaccine (3 - 2024-2 6 season) 2024 06/16/2020, 05/26/2020 Influenza Vaccine (#1) 2024 0, 03/05/2018, 03/04/2015 RSV Vaccine (1 - 1-dose 75+ series) 02/12/2027 DTaP/Tdap/Td Vaccine (3 - Tdap) 10/14/2029 10/15/2019, 05/12/2010 Pneumococcal Vaccine 50+ Yrs Completed , 03/05/2018 HepA Vaccine Aged Out No longer eligi ble based on patient's age to complete this topic HepB Vaccine Aged Out No longer eligi ble based on patient's age to complete this topic Hib Vaccine Aged Out No longer eligi ble based on patient's age to complete this topic IPV (Polio) Vaccine Aged Out No longe r eligible based on patient's age to complete this topic MCV4 Vaccine Aged Out No longer eligi ble based on patient's age to complete this topic Meningococcal B Vaccine Aged Out No l onger eligible based on patient's age to complete this topic Insurance [employer] Care Teams Keeler Polygraph Operator Relationship Specialty Start Date End Date Gab Song MD [address] [place], [place] [id number] PCP - General 08/01/19
--- OUTSIDE RECORDS SUMMARY | 2025-02-18 18:28 | XMS_ITS | Encounter Summary ---
Author Organization [facility] Address [address] [place] [address] Care Team Providers Care Coal Trimmer Name Role Phone Elsewhere, Pcp Primary Care Provider Unavailabl e Reason for Referral * Medication Prior Authorization - Closed Specialty Diagnoses / Procedures Referred By Contac t Referred To Contact Diagnoses Fracture Rib Single Closed Initial Left Selene Arriaza APRN, C.N.P., D.N.P. [address] [place] [phone] Phone: tel: fax: Referral ID Status Reason Start Date Expiration Date Visits Re quested Visits Authorized [id number] Closed 1 1 K WORKER AND DELIVERER Encounter Details Date Type Department Care Team (Late st Contact Info) Description 02/05/2025 Orders Only Department of Radiation Oncology in [place], [place] [address] [place] [phone] Selene Arriaza APRN, C.N.P., D.N.P. [address] [place] [phone] Fracture Rib Single Closed Initial Left (Primary Dx) Social History Tobacco Use Types [...] things needed for daily living? No 01/17/2025 [facility] Utilities Answer Date Recorded In the past 12 months has e electric, gas, oil, or water company threatened to shut off services in your home? No 01/17/2025 Housing Stability Answer Date Recorded What is your living situation today? I have a [facility] place to live 01/17/2025 Sex and Gender Information Value Date Recorded Sex Assigned at Male 01/05/2025 9:59 AM CDT Legal Sex Male 11:49 AM STOCK WORKER AND DELIVERER Gender Identity Male 01/05/2025 9:59 AM CDT Sexual Orientation Straight 01/05/2025 9: 59 AM CDT documented as of this encounter Plan of Treatment Upcoming Encounters Date Type Department Care Team (Late st Contact Info) Description 03/18/2025 1:20 PM STOCK WORKER AND DELIVERER Lab Department of Laboratory Medicine and Pathology, [facility], in [place], [place] [address] [place] [phone] Artemio Dunn M.D. [address] [place] [phone] 03/18/2025 3:00 PM STOCK WORKER AND DELIVERER Office Visit Department of Oncology in [place], [place] [address] [place] [phone] Artemio Dunn M.D. [address] [place] [phone] 03/18/2025 4:00 PM STOCK WORKER AND DELIVERER Infusion Department of Oncology in [place], [place] [address] [place] [phone] Artemio Dunn M.D. [address] [place] [phone] 04/14/2025 12:20 PM STOCK WORKER AND DELIVERER Lab Department of Laboratory Medicine and Pathology, [facility], in [place], [place] [address] [place] [phone] Artemio Dunn M.D. [address] [place] [phone] 04/14/2025 2:20 PM STOCK WORKER AND DELIVERER Office Visit Department of Oncology in [place], [place] [address] [place] [phone] Artemio Dunn M.D. [address] [place] [phone] 04/14/2025 3:00 PM STOCK WORKER AND DELIVERER Infusion Department of Oncology in [place], [place] [address] [place] [phone] Artemio Dunn M.D. [address] [place] [phone] 05/12/2025 12:50 PM STOCK WORKER AND DELIVERER Lab Department of Laboratory Medicine and Pathology, [facility], in [place], [place] [address] [place] [phone] Artemio Dunn M.D. [address] [place] [phone] 05/12/2025 3:00 PM STOCK WORKER AND DELIVERER Office Visit Department of Oncology in [place], [place] [address] [place] [phone] Artemio Dunn M.D. [address] [place] [phone] 05/13/2025 7:00 AM STOCK WORKER AND DELIVERER Infusion Department of Oncology in [place], [place] [address] [place] [phone] Artemio Dunn M.D. [address] [place] [phone] documented as of this encounter Goals Goal Patient Goal Type Associated Problems Recent Progress Patient-Stated? Author Autogenerat ed Goal Care Plan Autogenerated Problem No Hilary Diaz, RMerylN. documented as of this encounter Visit Diagnoses Diagnosis Fracture Rib Single Closed Initial Left- Primary documented in this encounter Additional Health Concerns Active Problems Noted Date Diagnosed Date Autogenerated Problem 01/21/2025 Infection Onset Date Last Indicated Resolved Time Protective Environment 01/29/2025 01/29/2025 documented as of this encounter Care Teams Coal Trimmer Relationship Specialty Start Date End Date Elsewhere, Pcp PCP - General Internal Medicine 01/21/25 documented as of this encounter
--- OUTSIDE RECORDS SUMMARY | 2025-02-18 18:29 | XMS_ITS | Encounter Summary ---
Author Organization [facility] Address [address] [place] [address] Care Team Providers Care Lead Web Developer Name Role Phone Unavailable Primary Care Provider Unavailabl e Reason for Referral * Outpatient (Routine) - Closed Specialty Diagnoses / Procedures Referred By Lencho lópez Referred To Contact Radiation Oncology Diagnoses Secondary Malignant Neoplasm Brain (HCC) León Castro M.D. [address] [place] [phone] Phone: tel: fax: [facility] Referral ID Status Reason Start Date Expiration Date Visits Re quested Visits Authorized [id number] Closed 01/20/2025 07/22/2026 1 1 EL PTA Encounter Details Date Type Department Care Team (Late st Contact Info) Description 01/20/2025 Orders Only Department of Neurologic Surgery in [place], [place] [address] [place] [phone] Hilary Diaz R.N. [address] [place] [phone] Secondary Malignant Neoplasm Brain (HCC) (Primary Dx) [...] things needed for daily living? No 01/17/2025 [facility] Utilities Answer Date Recorded In the past 12 months has th e electric, gas, oil, or water company threatened to shut off services in your home? No 01/17/2025 Housing Stability Answer Date Recorded What is your living situation today? I have a [facility] place to live 01/17/2025 Sex and Gender Information Value Date Recorded Sex Assigned at Male 01/05/2025 9:59 AM CDT Legal Sex Male 11:49 AM TRAVEL PTA Gender Identity Male 01/05/2025 9:59 AM CDT Sexual Orientation Straight 01/05/2025 9: 59 AM CDT documented as of this encounter Plan of Treatment Upcoming Encounters Date Type Department Care Team (Late st Contact Info) Description 03/18/2025 1:20 PM TRAVEL PTA Lab Department of Laboratory Medicine and Pathology, [place], [place] [address] [place] [phone] Artemio Dunn M.D. [address] [place] [phone] 03/18/2025 3:00 PM TRAVEL PTA Office Visit Department of Oncology in [address] [phone] Artemio Dunn M.D. [address] [place] [phone] 03/18/2025 4:00 PM TRAVEL PTA Infusion Department of Oncology in [address] [phone] Artemio Dunn M.D. [address] [place] [phone] 04/14/2025 12:20 PM TRAVEL PTA Lab Department of Laboratory Medicine and Pathology, [facility], in [place], [place] [address] [place] [phone] Artemio Dunn M.D. [address] [place] [phone] 04/14/2025 2:20 PM TRAVEL PTA Office Visit Department of Oncology in [place], [place] [address] [place] [phone] Artemio Dunn M.D. [address] [place] [phone] 04/14/2025 3:00 PM TRAVEL PTA Infusion Department of Oncology in [place], [place] [address] [place] [phone] Artemio Dunn M.D. [address] [place] [phone] 05/12/2025 12:50 PM TRAVEL PTA Lab Department of Laboratory Medicine and Pathology, [facility] in [place], [place] [address] [place] [phone] Artemio Dunn M.D. [address] [place] [phone] 05/12/2025 3:00 PM TRAVEL PTA Office Visit Department of Oncology in [address] [phone] Artemio Dunn M.D. [address] [place] [phone] 05/13/2025 7:00 AM TRAVEL PTA Infusion Department of Oncology in [place], [place] [address] [place] [phone] Artemio Dunn M.D. [address] [place] [phone] Scheduled Referrals Name Type Priority Associated Diagnoses Orde r Schedule Radiation Oncology - Brain / [facility] PL[employer] INTELLIGENCE OFFICER CHIEF consult (clinic) Outpatient Referral Routine Secondary Malignant Neoplasm Brain (HCC) Expected: 01/21/2025, Expires: 04/22/2026 documented as of this encounter Goals Goal [...]
--- OUTSIDE RECORDS SUMMARY | 2025-02-18 18:29 | XMS_ITS | Encounter Summary ---
Author Organization [facility] Address [address] [place] [address] Care Team Providers Care Night Worker Name Role Phone Elsewhere, Pcp Primary Care Provider Unavailabl e Encounter Details Date Type Department Care Team (Late st Contact Info) Description 01/20/2025 Clinical Communication Department of Radiation Oncology in [place], [place] [address] [place] [phone] Arianne Baum M.D. [address] [place] [phone] Social History Tobacco Use Types Packs/Day Years [...] things needed for daily living? No 01/17/2025 [facility] Utilities Answer Date Recorded In [...] AM CDT Legal Sex Male 11:49 AM POWER PLANT INSPECTOR Gender Identity Male 01/05/2025 9:59 AM CDT Sexual Orientation Straight 01/05/2025 9: 59 AM CDT documented as of this encounter Plan of Treatment Upcoming Encounters Date Type Department Care Team (Late st Contact Info) Description 03/18/2025 1:20 PM POWER PLANT INSPECTOR Lab Department of Laboratory Medicine and Pathology, [facility] in [place], [place] [address] [place] [phone] Artemio Dunn M.D. [address] [place] [phone] 03/18/2025 3:00 PM POWER PLANT INSPECTOR Office Visit Department of Oncology in [place], [place] [address] [place] [phone] Artemio Dunn M.D. [address] [place] [phone] 03/18/2025 4:00 PM POWER PLANT INSPECTOR Infusion Department of Oncology in [place], [place] [address] [place] [phone] Artemio Dunn M.D. [address] [place] [phone] 04/14/2025 12:20 PM POWER PLANT INSPECTOR Lab Department of Laboratory Medicine and Pathology, [facility], in [place], [place] [address] [place] [phone] Artemio Dnun M.D. [address] [place] [phone] 04/14/2025 2:20 PM POWER PLANT INSPECTOR Office Visit Department of Oncology in [place], [place] [address] [place] [phone] Artemio Dunn M.D. [address] [place] [phone] 04/14/2025 3:00 PM POWER PLANT INSPECTOR Infusion Department of Oncology in [place], [place] [address] [place] [phone] Artemio Dunn M.D. [address] [place] [phone] 05/12/2025 12:50 PM POWER PLANT INSPECTOR Lab Department of Laboratory Medicine and Pathology, [facility] in [place], [place] [address] [place] [phone] Artemio Dunn M.D. [address] [place] [phone] 05/12/2025 3:00 PM POWER PLANT INSPECTOR Office Visit Department of Oncology in [place], [place] [address] [place] [phone] Artemio Dunn M.D. [address] [place] [phone] 05/13/2025 7:00 AM POWER PLANT INSPECTOR Infusion Department of Oncology in [place], [place] [address] [place] [phone] Artemio Dunn M.D. [address] [place] [phone] documented as of this encounter Goals Goal [...] documented as of this encounter Care Teams Night Worker Relationship Specialty Start Date End Date Elsewhere, Pcp PCP - General Internal Medicine 01/21/25 documented as of this encounter
--- OUTSIDE RECORDS SUMMARY | 2025-02-18 18:29 | XMS_ITS | Encounter Summary ---
Author Organization [facility] Address [address] [place] [address] Care Team Providers Care Office Machine Servicer Apprentice Name Role Phone Unavailable Primary Care Provider Unavailabl e Encounter Details Date Type Department Care Team (Late st Contact Info) Description 01/20/2025 Documentation Department of Oncology in [place], [place] [address] [place] [phone] Mane Matthews, Pharm.D., R.Ph. [address] [place] [phone] Social History Tobacco Use Types Packs/Day Years [...] things needed for daily living? No 01/17/2025 [facility] Utilities Answer Date Recorded In the past 12 months has e electric, gas, oil, or water company threatened to shut off services in your home? No 01/17/2025 Housing Stability Answer Date Recorded What is your living situation today? I have a [facility] place to live 01/17/2025 Sex and Gender Information Value Date Recorded Sex Assigned at Male 01/05/2025 9:59 AM CDT Legal Sex Male 11:49 AM ASSISTANT MEDIA PLANNER Gender Identity Male 01/05/2025 9:59 AM CDT Sexual Orientation Straight 01/05/2025 9: 59 AM CDT documented as of this encounter Progress Notes * Mane Matthews, Keven., R.Ph. - 01/20/2025 1:08 PM CST Treatment Plan Assistance Encounter I was contacted by Dr. Dunn for assistance with treatment planning. Mr. Watson is a 74 y.o. male with a history of renal cell carcinoma. He is currently planning treatment with nivolumab/cabozantinib due to multiple brain metastases. The patient will proceed with Gamma Knife radiosurgery to treat the known brain metastases tomorrow, 01/21. I have completed the following tasks: Deleted the pembrolizumab treatment plan Entered a new treatment plan for nivolumab 480 mg every [address] Dunn would like to start treatment on 02/03 or 02/04, pending insurance approval. I will follow along for approval and date of infusion. This patient was not personally interviewed or examined for this chart review. Any history and examination findings are based on the clinical documentation provided and/or discussion with referring provider/care paper steamer who had personally interviewed and examined the patient. Application of these or other clinical recommendations should always be subject to provider discretion and clinical discussions with patient going forward. This is a no charge encounter. STANT MEDIA PLANNER documented in this encounter Plan of Treatment Upcoming Encounters Date Type Department Care Team (Late st Contact Info) Description 03/18/2025 1:20 PM ASSISTANT MEDIA PLANNER Lab Department of Laboratory Medicine and Pathology, [facility], in [place], [place] [address] [place] [address] Artemio Dunn M.D. [address] [place] [phone] 03/18/2025 3:00 PM ASSISTANT MEDIA PLANNER Office Visit Department of Oncology in [place], [place] [address] [place] [phone] Artemio Dunn M.D. [address] [place] [phone] 03/18/2025 4:00 PM ASSISTANT MEDIA PLANNER Infusion Department of Oncology in [place], [place] [address] [place] [phone] Artemio Dunn M.D. [address] [place] [phone] 04/14/2025 12:20 PM ASSISTANT MEDIA PLANNER Lab Department of Laboratory Medicine and Pathology, [facility] in [place], [place] [address] [place] [phone] Artemio Dunn M.D. [address] [place] [phone] 04/14/2025 2:20 PM ASSISTANT MEDIA PLANNER Office Visit Department of Oncology in [place], [place] [address] [place] [phone] Artemio Dunn M.D. [address] [place] [phone] 04/14/2025 3:00 PM ASSISTANT MEDIA PLANNER Infusion Department of Oncology in [place], [place] [address] [place] [phone] Artemio Dunn M.D. [address] [place] [phone] 05/12/2025 12:50 PM ASSISTANT MEDIA PLANNER Lab Department of Laboratory Medicine and Pathology, [facility], in [place], [place] [address] [place] [phone] Artemio Dunn M.D. [address] [place] [phone] 05/12/2025 3:00 PM ASSISTANT MEDIA PLANNER Office Visit Department of Oncology in [place], [place] [address] [place] [phone] Artemio Dunn M.D. [address] [place] [phone] 05/13/2025 7:00 AM ASSISTANT MEDIA PLANNER Infusion Department of Oncology in [place], [place] [address] [place] [phone] Artemio Dunn M.D. [address] [place] [phone] documented as of this encounter Goals Goal [...]
--- OUTSIDE RECORDS SUMMARY | 2025-02-18 18:29 | XMS_ITS | Encounter Summary ---
Author Organization [facility] Address [address] [place] [address] Care Team Providers Care Chemical Machine Tender Name Role Phone Unavailable Primary Care Provider Unavailabl e Encounter Details Date Type Department Care Team (Late st Contact Info) Description 01/15/2025 Documentation Department of Oncology in [place], [place] [address] [place] [phone] Mane Matthews, Pharm.D., R.Ph. [address] [place] [phone] Social History Tobacco Use Types Packs/Day Years Used Date Smoking Tobacco: Never Passive Smoke Exposure: Never Smokeless Tobacco: Never Alcohol Use Standard Drinks/Week Comments Not Currently 0 (1 standard drink = 0.6 oz pur e alcohol) Sex and Gender Information Value Date Recorded Sex Assigned at Male 01/05/2025 9:59 AM CDT Legal Sex Male 11:49 AM SHUTTLECOCK ASSEMBLER Gender Identity Male 01/05/2025 9:59 AM CDT Sexual Orientation Straight 01/05/2025 9: 59 AM CDT documented as of this encounter Progress Notes * Mane Matthews, Pharm.D., R.Ph. - 01/15/2025 9:40 AM CDT Treatment Plan Assistance Encounter I was contacted by Dr. Dunn for assistance with treatment planning. Mr. Watson is a 74 y.o. male with a history of renal cell carcinoma. He is currently planning treatment with pembrolizumab Q6wks with plans to add a TKI as well. I have completed the following tasks: I have put in the treatment plan for pembrolizumab 400 mg Q6 weeks and released the infusion appt request. I will follow for approval of treatment plan and date of infusion. Dr. Dunn has requested that it be scheduled on 01/20, 01/21, 01/28, or 01/29. This patient was not personally interviewed or examined for this chart review. Any history and examination findings are based on the clinical documentation provided and/or discussion with referring provider/care team sports sales associate who had personally interviewed and examined the patient. Application of these or other clinical recommendations should always be subject to provider discretion and clinical discussions with patient going forward. This is a no charge encounter. documented in this encounter Plan of Treatment Upcoming Encounters Date Type Department Care Team (Late st Contact Info) Description 03/18/2025 1:20 PM SHUTTLECOCK ASSEMBLER Lab Department of Laboratory Medicine and Pathology, [address] [phone] Artemio Dunn M.D. [address] [place] [phone] 03/18/2025 3:00 PM SHUTTLECOCK ASSEMBLER Office Visit Department of Oncology in [address] [phone] Artemio Dunn M.D. [address] [place] [phone] 03/18/2025 4:00 PM SHUTTLECOCK ASSEMBLER Infusion Department of Oncology in [address] [phone] Artemio Dunn M.D. [address] [place] [phone] 04/14/2025 12:20 PM SHUTTLECOCK ASSEMBLER Lab Department of Laboratory Medicine and Pathology, [place], [place] [address] [place] [phone] Artemio Dunn M.D. [address] [place] [phone] 04/14/2025 2:20 PM SHUTTLECOCK ASSEMBLER Office Visit Department of Oncology in [place], [place] [address] [place] [phone] Artemio Dunn M.D. [address] [place] [phone] 04/14/2025 3:00 PM SHUTTLECOCK ASSEMBLER Infusion Department of Oncology in [place], [place] [address] [place] [phone] Artemio Dunn M.D. [address] [place] [phone] 05/12/2025 12:50 PM SHUTTLECOCK ASSEMBLER Lab Department of Laboratory Medicine and Pathology, [facility] in [place], [place] [address] [place] [address] Artemio Dunn M.D. [address] [place] [phone] 05/12/2025 3:00 PM SHUTTLECOCK ASSEMBLER Office Visit Department of Oncology in [place], [place] [address] [place] [phone] Artemio Dunn M.D. [address] [place] [phone] 05/13/2025 7:00 AM SHUTTLECOCK ASSEMBLER Infusion Department of Oncology in [place], [place] [address] [place] [phone] Artemio Dunn M.D. [address] [place] [phone] documented as of this encounter Visit Diagnoses Diagnosis Cancer Renal Cell Carcinoma Personal History- Primary documented in this encounter
--- OUTSIDE RECORDS SUMMARY | 2025-02-18 18:29 | XMS_ITS | Encounter Summary ---
Author Organization [facility] Address [address] [place] [address] Care Team Providers Care Appliance Service Supervisor Name Role Phone Elsewhere, Pcp Primary Care Provider Unavailabl e Reason for Referral * Specialty Diagnoses / Procedures Referred By Lencho t Referred To Contact Diagnoses Cancer Renal Cell Carcinoma Personal History [facility] [address] [place] [phone] Phone: tel: [facility] Referral ID Status Reason Start Date Expiration Date Visits Re quested Visits Authorized ASIUM TEACHER Encounter Details Date Type Department Care Team (Late st Contact Info) Description 01/15/2025 Orders Only Department of Oncology in [place], [place] [address] [place] [phone] Mane Matthews, Pharm.D., R.Ph. [address] [place] [phone] Cancer Renal Cell Carcinoma Personal History (Primary [...] things needed for daily living? No 01/17/2025 [facility] Utilities Answer Date Recorded In the past 12 months has [facility] electric, gas, oil, or water company threatened to shut off services in your home? No 01/17/2025 Housing Stability Answer Date Recorded What is your living situation today? I have a [facility] place to live 01/17/2025 Sex and Gender Information Value Date Recorded Sex Assigned at Male 01/05/2025 9:59 AM CDT Legal Sex Male 11:49 AM GYMNASIUM TEACHER Gender Identity Male 01/05/2025 9:59 AM CDT Sexual Orientation Straight 01/05/2025 9: 59 AM CDT documented as of this encounter Plan of Treatment Upcoming Encounters Date Type Department Care Team (Late st Contact Info) Description 03/18/2025 1:20 PM GYMNASIUM TEACHER Lab Department of Laboratory Medicine and Pathology, [place], [place] [address] [place] [phone] Artemio Dunn M.D. [address] [place] [phone] 03/18/2025 3:00 PM GYMNASIUM TEACHER Office Visit Department of Oncology in [address] [phone] Artemio Dunn M.D. [address] [place] [phone] 03/18/2025 4:00 PM GYMNASIUM TEACHER Infusion Department of Oncology in [place], [place] [address] [place] [phone] Artemio Dunn M.D. [address] [place] [phone] 04/14/2025 12:20 PM GYMNASIUM TEACHER Lab Department of Laboratory Medicine and Pathology, [facility] in [place], [place] [address] [place] [phone] Artemio Dunn M.D. [address] [place] [phone] 04/14/2025 2:20 PM GYMNASIUM TEACHER Office Visit Department of Oncology in [place], [place] [address] [place] [phone] Artemio Dunn M.D. [address] [place] [phone] 04/14/2025 3:00 PM GYMNASIUM TEACHER Infusion Department of Oncology in [address] [phone] Artemio Dunn M.D. [address] [place] [phone] 05/12/2025 12:50 PM GYMNASIUM TEACHER Lab Department of Laboratory Medicine and Pathology, [facility] in [address] [phone] Artemio Dunn M.D. [address] [place] [phone] 05/12/2025 3:00 PM GYMNASIUM TEACHER Office Visit Department of Oncology in [address] [phone] Artemio Dunn M.D. [address] [place] [phone] 05/13/2025 7:00 AM GYMNASIUM TEACHER Infusion Department of Oncology in [address] [phone] Aretmio Dunn M.D. [address] [place] [phone] Scheduled Referrals Name Type Priority Associated Diagnoses Orde r Schedule Oncology - Chemo education visit (clinic) Outpatient Referral Routine Cancer Renal Cell Carcinoma Personal History Expected: 02/16/2025, Expires: 05/19/2026 documented as of this encounter Results * Thyroid Function [place] (02/17/2025 10:39 AM GYMNASIUM TEACHER) [facility] TSH, Sensitive 1.7 0.3 - 4.2 mIU/L 02/17/2025 12:05 PM GYMNASIUM TEACHER DTL Blood (Blood, Venous) 02/17/2025 10:39 AM GYMNASIUM TEACHER 02/17/2025 11:20 AM GYMNASIUM TEACHER us Artemio Dunn M.D. LAB BLOOD ADD-ON Final Res ult [facility] 200 [place] [address], [facility] [address] [place] [address] * LD (Lactate Dehydrogenase) (02/17/2025 10:39 AM GYMNASIUM TEACHER) [facility] LD 181 122 - 222 U/L 02/17/2025 11:46 AM GYMNASIUM TEACHER DT Blood (Blood, Venous) 02/17/2025 10:39 AM GYMNASIUM TEACHER 02/17/2025 11:23 AM GYMNASIUM TEACHER Result Boogie Dunn M.D. LAB BLOOD NON ADD-ON Final Result Performing Organization Address [facility]/ZIP Co de Phone Number [facility] [address] [place] [address], [facility] 200 [place] [address] * Bilirubin, Direct (02/17/2025 10:39 AM GYMNASIUM TEACHER) [facility] Bilirubin, Direct, S 0.3 0.0 - 0.3 mg/dL 02/17/2025 12:05 PM GYMNASIUM TEACHER DT Blood (Blood, Venous) 02/17/2025 10:39 AM GYMNASIUM TEACHER 02/17/2025 11:20 AM GYMNASIUM TEACHER Result Boogie Dunn M.D. LAB BLOOD ADD-ON Final Res ult [facility] 200 [place] [address], [facility] DTL [facility] 200 [place] [address] * (ABNORMAL) Comprehensive Metabolic Panel (02/17/2025 10:39 AM GYMNASIUM TEACHER) Potassium, S 5.3(H) 3.6 - 5.2 mmol/L 02/17/2025 12:05 PM GYMNASIUM TEACHER DTL Sodium, S 130(L) 135 - 145 mmol/L 02/17/2025 12:05 PM GYMNASIUM TEACHER DTL Chloride, S 97(L) 98 - 107 mmol/L 02/17/2025 12:05 PM GYMNASIUM TEACHER DTL Bicarbonate, S 24 22 - 29 mmol/L 02/17/2025 12:05 PM GYMNASIUM TEACHER DTL Anion Gap 9 7 - 15 02/17/2025 12:05 PM GYMNASIUM TEACHER DTL BUN (Blood Urea Nitrogen), S 23 8 - 24 mg/dL 02/17/2025 12:05 PM GYMNASIUM TEACHER DTL Creatinine 1.13 0.74 - 1.35 mg/dL 02/17/2025 12:05 PM GYMNASIUM TEACHER DTL Estimated GFR (eGFR) 69 >=60 mL/min/BS A 02/17/2025 12:05 PM GYMNASIUM TEACHER DTL Comment: Estimated GFR calculated using the 2020 CKD_EPI creatinine equation. Calcium, Total, S 12.2(H) 8.8 - 10.2 mg/dL 02/17/2025 12:05 PM GYMNASIUM TEACHER DTL Glucose, S 108 70 - 140 mg/dL 02/17/2025 12:05 PM GYMNASIUM TEACHER DTL Protein, Total, S 6.5 6.3 - 7.9 g/dL 02/17/2025 12:05 PM GYMNASIUM TEACHER DTL Albumin, S 3.2(L) 3.5 - 5.0 g/dL 02/17/2025 12:05 PM GYMNASIUM TEACHER DTL Aspartate Aminotransferase (AST), S 17 8 - 48 U/L 02/17/2025 12:05 PM GYMNASIUM TEACHER DTL Alkaline Phosphatase, S 205(H) 40 - 129 U/L 02/17/2025 12:05 PM GYMNASIUM TEACHER DTL Alanine Aminotransferase (ALT), S 13 7 - 55 U/L 02/17/2025 12:05 PM GYMNASIUM TEACHER DTL Bilirubin, Total, S 0.6 0.0 - 1.2 mg/dL 02/17/2025 12:05 PM GYMNASIUM TEACHER DTL Blood (Blood, Venous) 02/17/2025 10:39 AM GYMNASIUM TEACHER 02/17/2025 11:20 AM GYMNASIUM TEACHER us Artemio Dunn M.D. LAB BLOOD ADD-ON Final Res ult [facility] [address] [place] [address], [facility] DTL [facility] [address] [place] [address] * (ABNORMAL) CBC with Differential, Blood (02/17/2025 10:39 AM GYMNASIUM TEACHER) Hemoglobin 14.5 13.2 - 16.6 g/dL 02/17/2025 11:27 AM GYMNASIUM TEACHER DTL Hematocrit 46.7 38.3 - 48.6 % 02/17/2025 11:27 AM GYMNASIUM TEACHER DTL Erythrocytes 5.82(H) 4.35 - 5.65 x10(12)/L 02/17/2025 11:27 AM GYMNASIUM TEACHER DTL MCV 80.2 78.2 - 97.9 fL 02/17/2025 11:27 AM GYMNASIUM TEACHER DTL RBC Distrib Width 18.1(H) 11.8 - 14.5 % 02/17/2025 11:27 AM GYMNASIUM TEACHER DTL Platelet Count 386(H) 135 - 317 x10(9)/L 02/17/2025 11:27 AM GYMNASIUM TEACHER DTL Leukocytes 8.8 3.4 - 9.6 x10(9)/L 02/17/2025 11:27 AM GYMNASIUM TEACHER DTL Neutrophils 6.34 1.56 - 6.45 x10(9)/L 02/17/2025 11:27 AM GYMNASIUM TEACHER DHPM Lymphocytes 0.66(L) 0.95 - 3.07 x10(9)/L 02/17/2025 11:27 AM GYMNASIUM TEACHER DTL Monocytes 1.39(H) 0.26 - 0.81 x10(9)/L 02/17/2025 11:27 AM GYMNASIUM TEACHER DTL Eosinophils 0.33 0.03 - 0.48 x10(9)/L 02/17/2025 11:27 AM GYMNASIUM TEACHER DTL Basophils 0.08 0.01 - 0.08 x10(9)/L 02/17/2025 11:27 AM GYMNASIUM TEACHER DTL Blood (Blood, Venous) 02/17/2025 10:39 AM GYMNASIUM TEACHER 02/17/2025 10:55 AM GYMNASIUM TEACHER us Artemio Dunn M.D. LAB BLOOD ADD-ON Final Res ult [facility] [address] [place] [address], [facility] DTL [facility] [address] [place] [address] DHPM [facility] [address] [place] [address] documented in this encounter Visit Diagnoses Diagnosis Cancer Renal Cell Carcinoma Personal History- Primary documented in this encounter Additional Health Concerns Infection Onset Date Last Indicated Resolved Time Protective Environment 01/29/2025 01/29/2025 documented as of this encounter Care Teams Appliance Service Supervisor Relationship Specialty Start Date End Date Elsewhere, Pcp PCP - General Internal Medicine 01/21/25 documented as of this encounter
--- OUTSIDE RECORDS SUMMARY | 2025-02-18 18:29 | XMS_ITS | Encounter Summary ---
Author Organization [facility] Address [address] [place] [address] Care Team Providers Care Upholsterer Limousine And Hearse Name Role Phone Elsewhere, Pcp Primary Care Provider Unavailabl e Reason for Referral * Outpatient (Routine) - Closed Specialty Diagnoses / Procedures Referred By Lencho lópez Referred To Contact Oncology Artemio Dunn M.D. 200 [place] [address] Phone: tel: fax: [facility] Referral ID Status Reason Start Date Expiration Date Visits Re quested Visits Authorized [id number] Closed 01/27/2025 07/29/2026 1 1 Scheduling Instructions 320 with emerson Tomorrow -- x-rays 2 hours or so before. TH SAFETY COORDINATOR * Outpatient (Routine) - Closed Specialty Diagnoses / Procedures Referred By Lencho t Referred To Contact Diagnoses Cancer Renal Cell Carcinoma Personal History Procedures DX Hip And Pelvis Left 2-3 Views Artemio Dunn M.D. 200 [place] [address] Phone: tel: fax: [facility] Referral ID Status Reason Start Date Expiration Date Visits Re quested Visits Authorized [id number] Closed 01/27/2025 04/29/2026 1 1 TH SAFETY COORDINATOR Encounter Details Date Type Department Care Team (Late st Contact Info) Description 01/27/2025 Orders Only Department of Oncology in [place], [place] [address] [place] [phone] Artemio Dunn M.D. [address] [place] [phone] Cancer Renal Cell Carcinoma Personal History (Primary [...] things needed for daily living? No 01/17/2025 [facility] Utilities Answer Date Recorded In the past 12 months has [employer] electric, gas, oil, or water company threatened to shut off services in your home? No 01/17/2025 Housing Stability Answer Date Recorded What is your living situation today? I have a [facility] place to live 01/17/2025 Sex and Gender Information Value Date Recorded Sex Assigned at Male 01/05/2025 9:59 AM CDT Legal Sex Male 11:49 AM HEALTH SAFETY COORDINATOR Gender Identity Male 01/05/2025 9:59 AM CDT Sexual Orientation Straight 01/05/2025 9: 59 AM CDT documented as of this encounter Plan of Treatment Upcoming Encounters Date Type Department Care Team (Late Contact Info) Description 03/18/2025 1:20 PM HEALTH SAFETY COORDINATOR Lab Department of Laboratory Medicine and Pathology, [facility], in [place], [place] [address] [place] [phone] Artemio Dunn M.D. [address] [place] [phone] 03/18/2025 3:00 PM HEALTH SAFETY COORDINATOR Office Visit Department of Oncology in [place], [place] [address] [place] [phone] Artemio Dunn M.D. [address] [place] [phone] 03/18/2025 4:00 PM HEALTH SAFETY COORDINATOR Infusion Department of Oncology in [place], [place] [address] [place] [address] Artemio Dunn M.D. [address] [place] [phone] 04/14/2025 12:20 PM HEALTH SAFETY COORDINATOR Lab Department of Laboratory Medicine and Pathology, [facility] in [place], [place] [address] [place] [address] Artemio Dunn M.D. [address] [place] [phone] 04/14/2025 2:20 PM HEALTH SAFETY COORDINATOR Office Visit Department of Oncology in [place], [place] [address] [place] [address] Artemio Dunn M.D. [address] [place] [phone] 04/14/2025 3:00 PM HEALTH SAFETY COORDINATOR Infusion Department of Oncology in [place], [place] [address] [place] [address] Artemio Dunn M.D. [address] [place] [phone] 05/12/2025 12:50 PM HEALTH SAFETY COORDINATOR Lab Department of Laboratory Medicine and Pathology, [facility], in [place], [place] [address] [place] [phone] Artemio Dunn M.D. [address] [place] [phone] 05/12/2025 3:00 PM HEALTH SAFETY COORDINATOR Office Visit Department of Oncology in [place], [place] [address] [place] [phone] Artemio Dunn M.D. [address] [place] [phone] 05/13/2025 7:00 AM HEALTH SAFETY COORDINATOR Infusion Department of Oncology in [place], [place] [address] [place] [address] Artemio Dunn M.D. [address] [place] [address] Scheduled Referrals Name Type Priority Associated Diagnoses Orde r Schedule Oncology office visit (clinic) Outpatient Referral Routine Expected: 01/28/2025, Expires: 04/29/2026 documented as of this encounter Goals Goal Patient Goal Type Associated Problems Recent Progress Patient-Stated? Author Autogenerat ed Goal Care Plan Autogenerated Problem No Hilary Diaz, RMerylN. documented as of this encounter Results * DX Hip And Pelvis Left 2-3 Views (01/28/2025 1:49 PM HEALTH SAFETY COORDINATOR) Anatomical Region Laterality Modality Lower Extremity, Pelvis, Hip , Musculoskeletal RST LOS, Musculoskeletal ARZ LOS, Muskuloskeletal FLA LOS Left Digit al Radiography Impressions 01/28/2025 3:08 PM HEALTH SAFETY COORDINATOR As demonstrated on the 12/31/2024 CT, there is a destructive lytic lesion in the root of the superior left pubic ramus. Benign synovial herniation pit left femoral neck. Degenerative arthritis pubic symphysis, sacroiliac joints, and lower lumbar spine. Narrative 01/28/2025 3:08 PM HEALTH SAFETY COORDINATOR EXAM: DX HIP AND PELVIS LEFT 2-3 [...] Cancer Renal Cell Carcinoma Personal History- Primary Cancer Renal Cell Carcinoma Personal History documented in this encounter Additional Health Concerns Active Problems Noted Date Diagnosed Date Autogenerated Problem 01/21/2025 documented as of this encounter Care Teams Upholsterer Limousine And Hearse Relationship Specialty Start Date End Date Elsewhere, Pcp PCP - General Internal Medicine 01/21/25 documented as of this encounter
--- OUTSIDE RECORDS SUMMARY | 2025-02-18 18:29 | XMS_ITS | Encounter Summary ---
Author Organization [facility] Address [address] [place] [address] Care Team Providers Care Drop Hammer Operator Helper Name Role Phone Elsewhere, Pcp Primary Care Provider Unavailabl e Encounter Details Date Type Department Care Team (Late st Contact Info) Description 01/28/2025 Orders Only Department of Oncology in [place], [place] [address] [place] [phone] Artemio Dunn M.D. [address] [place] [phone] Social History Tobacco Use Types Packs/Day Years [...] things needed for daily living? No 01/17/2025 [facility] Utilities Answer Date Recorded In the past 12 months has e electric, gas, oil, or water company threatened to shut off services in your home? No 01/17/2025 Housing Stability Answer Date Recorded What is your living situation today? I have a [facility] place to live 01/17/2025 Sex and Gender Information Value Date Recorded Sex Assigned at Male 01/05/2025 9:59 AM CDT Legal Sex Male 11:49 AM WIRE STITCHER MACHINE Gender Identity Male 01/05/2025 9:59 AM CDT Sexual Orientation Straight 01/05/2025 9: 59 AM CDT documented as of this encounter Plan of Treatment Upcoming Encounters Date Type Department Care Team (Late st Contact Info) Description 03/18/2025 1:20 PM WIRE STITCHER MACHINE Lab Department of Laboratory Medicine and Pathology, [facility] in [place], [place] [address] [place] [phone] Artemio Dunn M.D. [address] [place] [phone] 03/18/2025 3:00 PM WIRE STITCHER MACHINE Office Visit Department of Oncology in [place], [place] [address] [place] [phone] Artemio Dunn M.D. [address] [place] [phone] 03/18/2025 4:00 PM WIRE STITCHER MACHINE Infusion Department of Oncology in [place], [place] [address] [place] [phone] Artemio Dunn M.D. [address] [place] [phone] 04/14/2025 12:20 PM WIRE STITCHER MACHINE Lab Department of Laboratory Medicine and Pathology, [facility], in [place], [place] [address] [place] [phone] Artemio Dunn M.D. [address] [place] [phone] 04/14/2025 2:20 PM WIRE STITCHER MACHINE Office Visit Department of Oncology in [place], [place] [address] [place] [phone] Artemio Dunn M.D. [address] [place] [phone] 04/14/2025 3:00 PM WIRE STITCHER MACHINE Infusion Department of Oncology in [place], [place] [address] [place] [phone] Artemio Dunn M.D. [address] [place] [phone] 05/12/2025 12:50 PM WIRE STITCHER MACHINE Lab Department of Laboratory Medicine and Pathology, [facility] in [place], [place] [address] [place] [phone] Artemio Dunn M.D. [address] [place] [phone] 05/12/2025 3:00 PM WIRE STITCHER MACHINE Office Visit Department of Oncology in [place], [place] [address] [place] [phone] Arteimo Dunn M.D. [address] [place] [phone] 05/13/2025 7:00 AM WIRE STITCHER MACHINE Infusion Department of Oncology in [place], [place] [address] [place] [phone] Artemio Dunn M.D. [address] [place] [phone] documented as of this encounter Goals Goal Patient Goal Type Associated Problems Recent Progress Patient-Stated? Author Autogenerat ed Goal Care Plan Autogenerated Problem Hilary White RMerylN. documented as of this encounter Visit Diagnoses Not on filedocumented in this encounter Additional Health Concerns Active Problems Noted Date Diagnosed Date Autogenerated Problem 01/21/2025 documented as of this encounter Care Teams Drop Hammer Operator Helper Relationship Specialty Start Date End Date Elsewhere, Pcp PCP - General Internal Medicine 01/21/25 documented as of this encounter
--- OUTSIDE RECORDS SUMMARY | 2025-02-18 18:29 | XMS_ITS ---
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 on 02/04/2025 Cancer Renal Cell Carcinoma Personal History Other Shear Grinder Operator Current Drug Therapy 01/15/2025 Current Treatment and Therapy Plans Vascular Access Patency - Peripheral Intravenous Catheter and Rapid Infusion Catheter* Plan Start Date:02/17/2025 Linked Problems Malignant Neoplasm Of Kidney 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 (HCC) Treatment Medications No medications scheduled. Other Current Plans Cabozantinib/Nivolumab 480 mg every 4 weeks* Plan Start Date:02/16/2025 Plan Provider:Artemio Dunn M.D. Linked Problems Cancer Renal Cell Carcinoma Personal History Treatment Medications Current Day (Day 1 , Cycle 2 - Planned for 03/18/2025) Next Day (Day 1, Cycle 3 - Planned for 04/15/2025) cabozantinib (Cabometyx)nivolumab (Opdivo)nivolumab (Opdivo) 480 MG IVPB in NaCl 0.9% 100 mL (Opdivo) nivolumab 480 mg in NaCl 0.9% 148 mL IVPB (Opdivo) nivolumab 480 mg in NaCl 0.9% 148 mL IVPB (Opdivo) Past Treatment and Therapy Plans Past Radiation Episodes * Radiation Therapy: Left PelvisOverview* First Treatment Date Last Treatment Date Treatment Site Technique Goal Episod e Provider 02/07/2025 02/07/2025 Left Pelvis * Linked Problems Cancer Renal Cell Carcinoma Personal HistoryMalignant Neoplasm Of Kidney 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Secondary Malignant Neoplasm Bone Treatment Courses* Course 2xPelvisSBRT 02/07/2025 - 02/07/2025 Treatment Period Fraction Dose Fractions Total Dose Plans Planned [id number] 02/07/2025 - 02/07/2025 2,400 cGy 2,400 cGy Reference Points Delivered [id number] 02/07/2025 - 02/07/2025 2,400 cGy Radiation Treatments (No Episode) * Course [id number] 01/21/2025 - 01/21/2025 Treatment Period Energy Fraction Dose Fractions Total Dose Plans Planned [id number] 01/21/2025 - 01/21/2025 2,000 cGy 2,000 cGy Reference Points Delivered 1g_LtSphenoid 01/21/2025 - 01/21/2025 2,000 cGy
--- OUTSIDE RECORDS SUMMARY | 2025-02-18 18:29 | XMS_ITS | Encounter Summary ---
Author Organization [facility] Address [address] [place] [id number] Care Team Providers Care Cloud Systems Administrator Name Role Phone Elsewhere, Pcp Primary Care Provider Unavailabl e Reason for Referral * Outpatient (Routine) - Closed Specialty Diagnoses / Procedures Referred By Lencho t Referred To Contact Neurological Surgery Diagnoses Cancer Renal Cell Carcinoma Personal History Artemio Dunn M.D. [address] [place] [address] Phone: tel: fax: [facility] Referral ID Status Reason Start Date Expiration Date Visits Re quested Visits Authorized [id number] Closed 01/16/2025 07/18/2026 1 1 Scheduling Instructions Brain MRI in the last 3 months; Rad Onc consult will be coordinated by Neurosurgery Encounter Details Date Type Department Care Team (Late st Contact Info) Description 01/16/2025 Orders Only Department of Oncology in [place], [place] [address] [place] [phone] Artemio Dunn M.D. [address] [place] [phone] Cancer Renal Cell Carcinoma Personal History (Primary [...] things needed for daily living? No 01/17/2025 [facility] Utilities Answer Date Recorded In the past 12 months has th e electric, gas, oil, or water company threatened to shut off services in your home? No 01/17/2025 Housing Stability Answer Date Recorded What is your living situation today? I [facility] a [facility] 01/17/2025 Sex and Gender Information Value Date Recorded Sex Assigned at Male 01/05/2025 9:59 AM CDT Legal Sex Male 11:49 AM ROTARY ENGRAVER Gender Identity Male 01/05/2025 9:59 AM CDT Sexual Orientation Straight 01/05/2025 9: 59 AM CDT documented as of this encounter Plan of Treatment Upcoming Encounters Date Type Department Care Team (Late st Contact Info) Description 03/18/2025 1:20 PM ROTARY ENGRAVER Lab Department of Laboratory Medicine and Pathology, [facility] in [place], [place] [address] [place] [phone] Artemio Dunn M.D. [address] [place] [phone] 03/18/2025 3:00 PM ROTARY ENGRAVER Office Visit Department of Oncology in [place], [place] [address] [place] [phone] Artemio Dunn M.D. [address] [place] [phone] 03/18/2025 4:00 PM ROTARY ENGRAVER Infusion Department of Oncology in [place], [place] [address] [place] [phone] Artemio Dunn M.D. [address] [place] [phone] 04/14/2025 12:20 PM ROTARY ENGRAVER Lab Department of Laboratory Medicine and Pathology, [facility], in [place], [place] [address] [place] [phone] Artemio Dunn M.D. [address] [place] [phone] 04/14/2025 2:20 PM ROTARY ENGRAVER Office Visit Department of Oncology in [place], [place] [address] [place] [phone] Artemio Dunn M.D. [address] [place] [phone] 04/14/2025 3:00 PM ROTARY ENGRAVER Infusion Department of Oncology in [place], [place] [address] [place] [phone] Artemio Dunn M.D. [address] [place] [phone] 05/12/2025 12:50 PM ROTARY ENGRAVER Lab Department of Laboratory Medicine and Pathology, [facility], in [place], [place] [address] [place] [phone] Artemio Dunn M.D. [address] [place] [phone] 05/12/2025 3:00 PM ROTARY ENGRAVER Office Visit Department of Oncology in [place], [place] [address] [place] [phone] Artemio Dunn M.D. [address] [place] [phone] 05/13/2025 7:00 AM ROTARY ENGRAVER Infusion Department of Oncology in [place], [place] [address] [place] [phone] Artemio Dunn M.D. [address] [place] [phone] Scheduled Referrals Name Type Priority Associated Diagnoses Order Schedule Neurological Surgery - Brain tumor consult (clinic) Outpatient Referral Routine Cancer Renal Cell Carcinoma Personal History Expected: 01/16/2025, Expires: 04/18/2026 documented as of this encounter Visit Diagnoses Diagnosis Cancer Renal Cell Carcinoma Personal History- Primary documented in this encounter Additional Health Concerns Infection Onset Date Last Indicated Resolved Time Protective Environment 01/29/2025 01/29/2025 documented as of this encounter Care Teams Cloud Systems Administrator Relationship Specialty Start Date End Date Elsewhere, Pcp PCP - General Internal Medicine 01/21/25 documented as of this encounter
--- OUTSIDE RECORDS SUMMARY | 2025-02-18 18:30 | XMS_ITS | Clinical Summary ---
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 For routine questions regarding patient records, call [phone] during business hours, M-F 8:00 AM - 5:00 PM Central Time. Record requests for emergency care only can be directed to [phone] at any time.[facility] Allergies No known active allergies Medications acetaminophen (TylenoL) 500 mg tablet Take 500-1,000 mg by mouth 3 (three) times a day as needed. Active albuterol 90 mcg/actuation inhaler Inhale. 11/22/19 25 Active lisinopriL 10 mg tablet Take 10 mg by mouth. 10/15/19 20 Active simvastatin (Zocor) 20 mg tablet Take 20 mg by mouth. 10/15/19 20 Active triamterene-hy droCHLOROthiaz riky (Maxzide-25) 37.5-25 mg per tablet Take 1 tablet by mouth. On Hold 06/11/19 10 Active multivitamin-m ntpjzkc-BD-xbj ein (Centrum Silver) 400-250 mcg per chewable tablet Chew 1 tablet daily. Active HYDROmorphone (Dilaudid) 2 mg tabletIndicati ons:Acute Pain Exception Take 1 tablet (2 mg total) by mouth every 4 (four) hours as needed for pain or severe pain or score 7-10 of 10 (pain not relieved by the Tylenol) Indication: Acute Pain Exception. 20 tablet 01/29/20 25 Active Additional Information Patient not taking.Reported on 02/17/2025 lidocaine (Lidoderm) 5 % adhesive patch,medicate dIndications:F racture Rib Single Closed Initial Left Place 1 patch on the skin every 12 (twelve) hours. Apply to affected area/rib pain. 14 patch 1 02/06/20 25 Active cabozantinib (Cabometyx) 40 mg tabletIndicati ons:Cancer Renal Cell Carcinoma Personal History Take 1 tablet (40 mg total) by mouth daily. Take 1 hour before, or 2 hours after meals. 30 tablet 3 5 10:49 AM JAVA TECH LEAD 02/18/20 25 Active RX WELCOME PACKET-SPECIAL TY-OP ONLY Welcome packet 1 each 5 10:49 AM JAVA TECH LEAD 02/15/20 25 Active lidocaine 4 % dressing Apply 1 Application topically as needed for pain. Active senna 8.6 mg tablet TAKE ONE TABLET BY MOUTH AT BEDTIME NEEDED FOR CONSTIPATION Active prochlorperazi ne (Compazine) 10 mg tabletIndicati ons:Cancer Renal Cell Carcinoma Personal History Take 1 tablet (10 mg total) by mouth every 6 (six) hours as needed for nausea or vomiting. 30 tablet 3 5 2:55 PM JAVA TECH LEAD 02/18/20 25 026 Active ondansetron (Zofran) 8 mg tabletIndicati ons:Cancer Renal Cell Carcinoma Personal History Take 1 tablet (8 mg total) by mouth every 8 (eight) hours as needed for nausea or vomiting (unrelieved by prochlorperazin e). 30 tablet 3 5 2:55 PM JAVA TECH LEAD 02/18/20 25 026 Active dexAMETHasone (Decadron) 2 mg tablet Take 1 tablet (2 mg total) by mouth daily. 14 tablet 01/29/20 25 025 Discontinued oxyCODONE (Roxicodone) 5 mg immediate release tabletIndicati ons:Acute Pain Take 1-2 tablets (5-10 mg total) by mouth every 4 (four) hours as needed for pain Indication: Acute Pain. 20 tablet 01/29/20 25 025 Discontinued cabozantinib (Cabometyx) 20 mg tabletIndicati ons:Cancer Renal Cell Carcinoma Personal History Take 2 tablets (40 mg total) by mouth daily. Take 1 hour before, or 2 hours after meals. 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 sx back pain 02/17/2025 1:30 PM JAVA TECH LEAD Infusion Department of Oncology in [place], [place] [address] [place] [address] Artemio Dunn M.D. 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 Mane Matthews, Pharm.D., R.Ph. Cancer Renal Cell Carcinoma Personal History (Primary Dx) 02/17/2025 Orders Only Department of Oncology in [place], [place] [address] [place] [address] Tiffany Bell, P.A.-C. 02/14/2025 Specialty Pharmacy [facility] [address] [place] [phone] Maria Ni, Pharm.D., R.Ph. Cancer Renal Cell Carcinoma Personal History (Primary Dx) 02/14/2025 Clinical Communication [facility] [address] [place] [phone] Eliazar Lemos, C.Ph.T. Medication dispensed 02/14/2025 Specialty Pharmacy [facility] [address] [place] [phone] Eliazar Lemos C.Ph.T. 02/14/2025 Specialty Pharmacy [facility] [address] [place] [phone] Nishant Briceno, PharmMerylD., R.Ph. 02/07/2025 4:53 PM JAVA TECH LEAD Hospital Encounter Department of Radiation Oncology in [place], [place] [address] [place] [phone] Arianne Baum M.D. 02/07/2025 4:48 PM JAVA TECH LEAD - 02/07/2025 4:49 PM JAVA TECH LEAD Hospital Encounter Department of Radiation Oncology in [place], [place] [address] [place] [phone] Arie Dunne M.D. 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 02/07/2025 Orders Only Department of Oncology in [place], [place] [address] [place] [phone] Mane Matthews, PharmMerylD., R.Ph. 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 Rx Denial (Cabometyx 20 mg tablet ) 02/05/2025 Orders Only Department of Radiation Oncology in [place], [place] [address] [place] [phone] Selene Arriaza APRN, C.N.P., D.N.P. Fracture Rib Single Closed Initial Left (Primary Dx) 02/05/2025 Clinical Communication Department of Radiation Oncology in [place], [place] [address] [place] [phone] Arie Dunne M.D. 01/31/2025 1:33 PM JAVA TECH LEAD Hospital Encounter Department of Radiation Oncology in [address] [phone] Arie Dunne M.D. 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 Cancer Renal Cell Carcinoma Personal History (Primary Dx) 01/29/2025 Orders Only Department of Oncology in [address] [phone] Mane Matthews, Pharm.D., R.Ph. Cancer Renal Cell Carcinoma Personal History (Primary Dx) 01/28/2025 3:40 PM JAVA TECH LEAD Office Visit Department of Oncology in [address] [phone] Artemio Dunn M.D. 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 Cancer Renal Cell Carcinoma Personal History Discharge Disposition: Home or Self Care 01/28/2025 Orders Only Department of Oncology in [place], [place] [address] [place] [phone] Artemio Dunn M.D. 01/27/2025 Orders Only Department of Oncology in [place], [place] [address] [place] [phone] Artemio uDnn M.D. Cancer Renal Cell Carcinoma Personal History (Primary Dx) 01/21/2025 8:34 AM JAVA TECH LEAD - 01/21/2025 10:17 AM JAVA TECH LEAD Surgery [facility] [address] [place] [phone] León Castro M.D. GAMMA KNIFE. 01/21/2025 5:30 AM JAVA TECH LEAD - 01/21/2025 9:03 AM JAVA TECH LEAD Hospital Encounter [facility] [address] [place] [phone] León Castro M.D. Discharge Disposition: Home or Self Care 01/20/2025 3:09 PM JAVA TECH LEAD Hospital Encounter Department of Radiation Oncology in [address] [phone] Arianne Baum M.D. 01/20/2025 10:30 AM JAVA TECH LEAD Comprehensive Visit Department of Neurologic Surgery in [address] [phone] León Castro M.D. Secondary Malignant Neoplasm Brain (HCC) (Primary Dx) 01/20/2025 Documentation Department of Oncology in [address] [phone] Mane Matthews, Pharm.D., R.Ph. 01/20/2025 Clinical Communication Department of Radiation Oncology in [address] [phone] Arianne Baum M.D. 01/20/2025 Orders Only Department of Neurologic Surgery in [place], [place] [address] [place] [phone] Hilary Diaz R.N. Secondary Malignant Neoplasm Brain (HCC) (Primary Dx) 01/16/2025 3:40 PM CDT Virtual Visit Department of Oncology in [place], [place] [address] [place] [phone] Artemio Dunn M.D. Cancer Renal Cell Carcinoma Personal History (Primary Dx) 01/16/2025 3:00 PM CDT Admin Visit Department of Oncology in [place], [place] [address] [place] [phone] 01/16/2025 Orders Only Department of Oncology in [place], [place] [address] [place] [phone] Artemio Dunn M.D. Cancer Renal Cell Carcinoma Personal History (Primary Dx) 01/15/2025 6:30 PM CDT - 01/15/2025 11:59 PM CDT [facility] [place] [place] [address] [place] [phone] Artemio Dunn M.D. 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 Cancer Renal Cell Carcinoma Personal History (Primary Dx) 01/15/2025 Documentation Department of Oncology in [place], [place] [address] [place] [phone] Mane Matthews, Pharm.D., R.Ph. 01/14/2025 3:00 PM CDT Virtual Visit Department of Oncology in [place], [place] [address] [place] [phone] Artemio Dunn M.D. Cancer Renal Cell Carcinoma Personal History (Primary Dx) 01/10/2025 9:01 AM CDT - 01/10/2025 11:39 AM CDT Hospital Encounter Department of Radiology, [facility] in [place], [place] [address] [place] [address] Artemio Dunn M.D. Carcinoma Renal Cell Right (HCC) (Primary Dx); Malignant Neoplasm Of Kidney 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 (HCC) Discharge Disposition: Home or Self Care 01/08/2025 11:10 AM CDT Ancillary Procedure Department of Radiology in [place], [place] [address] [place] [phone] Artemio Dunn M.D. Malignant Neoplasm Of Kidney 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 (HCC) 01/08/2025 11:05 AM CDT Ancillary Procedure Department of Radiology in [place], [place] [address] [place] [phone] Artemio Dunn M.D. 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 Phone Call Request from Last 3 Months Family History Relation Name Status Comments Brother Richard Sister Evonne Alive Social History Tobacco Use Types Packs/Day Years [...] things needed for daily living? No 01/17/2025 [facility] Utilities Answer Date Recorded In the past 12 months has e electric, gas, oil, or water company threatened to shut off services in your home? No 01/17/2025 Housing Stability Answer Date Recorded What is your living situation today? I have a [facility] place to live 01/17/2025 Sex and Gender Information Value Date Recorded Sex Assigned at Male 01/05/2025 9:59 AM CDT Legal Sex Male 11:49 AM JAVA TECH LEAD Gender Identity Male 01/05/2025 9:59 AM CDT Sexual Orientation Straight 01/05/2025 9: 59 AM CDT Last Filed Vital Signs Vital Sign Reading Time Taken Comments Blood Pressure 106/67 02/17/2025 12:18 PM JAVA TECH LEAD Pulse 102 02/17/2025 12:18 PM JAVA TECH LEAD Temperature 36.4 C (97.5 F) 02/17/2025 12:18 PM JAVA TECH LEAD Respiratory Rate 16 02/17/2025 12:18 PM JAVA TECH LEAD Oxygen Saturation 92% 02/17/2025 12:18 PM JAVA TECH LEAD Inhaled Oxygen Concentration - - Weight 71.3 kg (157 lb 3 oz) 02/17/2025 12:18 PM JAVA TECH LEAD Height 171.6 cm (5' 7.56) 02/17/2025 12:[address] Body Mass Index 24.21 02/17/2025 12:18 PM JAVA TECH LEAD Plan of Treatment Upcoming Encounters Date Type Department Care Team (Late st Contact Info) Description 03/18/2025 1:20 PM JAVA TECH LEAD Lab Department of Laboratory Medicine and Pathology, [facility], in [place], [place] [address] [place] [address] Artemio Dunn M.D. [address] [place] [phone] 03/18/2025 3:00 PM JAVA TECH LEAD Office Visit Department of Oncology in [place], [place] [address] [place] [phone] Artemio Dunn M.D. [address] [place] [phone] 03/18/2025 4:00 PM JAVA TECH LEAD Infusion Department of Oncology in [place], [place] [address] [place] [address] Artemio Dunn M.D. [address] [place] [phone] 04/14/2025 12:20 PM JAVA TECH LEAD Lab Department of Laboratory Medicine and Pathology, [facility], in [place], [place] [address] [place] [address] Artemio Dunn M.D. [address] [place] [phone] 04/14/2025 2:20 PM JAVA TECH LEAD Office Visit Department of Oncology in [place], [place] [address] [place] [address] Artemio Dunn M.D. [address] [place] [phone] 04/14/2025 3:00 PM JAVA TECH LEAD Infusion Department of Oncology in [place], [place] [address] [place] [phone] Artemio Dunn M.D. [address] [place] [phone] 05/12/2025 12:50 PM JAVA TECH LEAD Lab Department of Laboratory Medicine and Pathology, [facility], in [place], [place] [address] [place] [phone] Artemio Dunn M.D. [address] [place] [phone] 05/12/2025 3:00 PM JAVA TECH LEAD Office Visit Department of Oncology in [place], [place] [address] [place] [phone] Artemio Dunn M.D. [address] [place] [phone] 05/13/2025 7:00 AM JAVA TECH LEAD Infusion Department of Oncology in [place], [place] [address] [place] [phone] Artemio Dunn M.D. [address] [place] [phone] Health Maintenance Due Date Last Done Comments CT Colonography 1952 Cologuard 1950 Colonoscopy 1950 Colorectal Cancer Surveillance 1950 Hepatitis C Screening 1950 RSV vaccine - (32-36 weeks) or 50+ years (1 - Risk 50-74 years 1-dose series) 02/12/2002 Zoster Vaccines (1 of 2) 01/16/2014 11/21/2013 Depression Screening (Annual PHQ-2) 03/20/2024 COVID-19 Vaccine ( season) 2024 02/22/2022, 01/14/2021, 06/16/2020, Additional history exists Creatinine Level (Kidney Function Test) 02/17/2026 02/17/2025, 01/10/2025 Potassium Level 02/17/2026 02/17/2025, 01/10/2025 Sodium Level 02/17/2026 02/17/2025, 01/10/2025 Fasting Glucose for Diabetes Screening 02/18/2028 02/17/2025, 01/10/2025 DTaP,Tdap,and Td Vaccines (3 - Td or Tdap) 10/14/2029 10/15/2019, 05/12/2010 Pneumococcal vaccine (50+ years) Completed 10/15/2019, 03/05/2018 Influenza Vaccine Completed 01/02/2025, , 02/07/2023, Additional history exists Fall Risk Screen (Annual) Completed 01/21/2025 HPV Vaccines Aged Out No longer eligi ble based on patient's age to complete this topic IPV Vaccines Aged Out No longer eligi ble based on patient's age to complete this topic Goals Goal Patient Goal Type Associated Problems Recent Progress Patient-Stated? Author Autogenerat ed Goal Care Plan Autogenerated Problem No Hilary Diaz [employer] Implanted Type Area Program Officer Device Identifier Shelf Expiration Date Model / Serial / Lot Kit Sealant Tisseel 10ml Frozen - Muñoz [id number] Implanted:Qty: 1 on 02/01/2008 [employer] [place] Description:Device Manufactu [facility] [place]. Device Status Text - [id number]. 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 Current Drug Therapy THYROID FUNCTION CASCADE, S Routine 02/17/2025 10:39 AM JAVA TECH LEAD Cancer Renal Cell Carcinoma Personal History LACTATE DEHYDROGENASE (LD), S Routine 02/17/2025 10:39 AM JAVA TECH LEAD Cancer Renal Cell Carcinoma Personal History BILIRUBIN DIRECT, S/P Routine 02/17/2025 10:39 AM JAVA TECH LEAD Cancer Renal Cell Carcinoma Personal History COMPREHENSIVE METABOLIC PANEL, S/P Routine 02/17/2025 10:39 AM JAVA TECH LEAD Cancer Renal Cell Carcinoma Personal History CBC WITH DIFFERENTIAL, B Routine 02/17/2025 10:39 AM JAVA TECH LEAD Cancer Renal Cell Carcinoma Personal History ARIA COURSE COMPLETE TREATMENT INFORMATION Routine 02/07/2025 5:15 PM JAVA TECH LEAD ARIA DAILY TREATMENT INFORMATION Routine 02/07/2025 5:15 PM JAVA TECH LEAD INITIAL RAD ONC TREATMENT PLANNING CT SIMULATION Routine 01/31/2025 2:00 PM JAVA TECH LEAD Malignant Neoplasm Of Kidney 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 (HCC) Secondary Malignant Neoplasm Bone (HCC) Cancer Renal Cell Carcinoma Personal History DX HIP AND PELVIS LEFT 2-3 VIEWS RAD - Routine (most inpatients and all outpatients) 01/28/2025 1:49 PM JAVA TECH LEAD Cancer Renal Cell Carcinoma Personal History ARIA COURSE COMPLETE TREATMENT INFORMATION Routine 01/21/2025 8:30 AM JAVA TECH LEAD ARIA DAILY TREATMENT INFORMATION Routine 01/21/2025 8:30 AM JAVA TECH LEAD APPLICATION STEREOTACTIC HEAD FRAME 01/21/2025 5:45 AM JAVA TECH LEAD Secondary Malignant Neoplasm Brain (HCC) GAMMA KNIFE 01/21/2025 5:45 AM JAVA TECH LEAD Secondary Malignant Neoplasm Brain (HCC) MR BRAIN WITHOUT AND WITH IV CONTRAST RAD - Routine (most inpatients and all outpatients) 01/15/2025 7:55 PM CDT Malignant Neoplasm Of Kidney 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 (HCC) US LIVER BIOPSY RAD - Routine (most inpatients and all outpatients) 01/10/2025 10:40 AM CDT Malignant Neoplasm Of Kidney 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 (HCC) CYTOLOGY FINE NEEDLE ASPIRATION (INCLUDES CORE BIOPSIES Routine 01/10/2025 10:26 AM CDT Carcinoma Renal Cell Right (HCC) Malignant Neoplasm Of Kidney 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 (HCC) PROTHROMBIN TIME (PT), P Routine 01/10/2025 8:02 AM CDT Carcinoma Renal Cell Right (HCC) CBC WITH DIFFERENTIAL, B Routine 01/10/2025 8:02 AM CDT Malignant Neoplasm Of Kidney 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 (HCC) COMPREHENSIVE METABOLIC PANEL, S/P Routine 01/10/2025 8:02 AM CDT Malignant Neoplasm Of Kidney 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 (HCC) PROTHROMBIN TIME (PT), P Routine 01/10/2025 8:02 AM CDT Malignant Neoplasm Of Kidney 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 (HCC) PLATELETS, B Routine 01/10/2025 8:02 AM CDT Malignant Neoplasm Of Kidney 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 (HCC) INTERPRETATION OF OUTSIDE CT CHEST RAD - Routine (most inpatients and all outpatients) 01/08/2025 11:09 AM CDT Malignant Neoplasm Of Kidney 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 (HCC) INTERPRETATION OF OUTSIDE CT ABDOMEN AND OR PELVIS RAD - Routine (most inpatients and all outpatients) 01/08/2025 11:09 AM CDT Malignant Neoplasm Of Kidney 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 (HCC) OUTSIDE CT BODY Routine 12/31/2024 12:[address] BODY Routine 12/25/2024 3:20 PM CDT OUTSIDE DX CHEST Routine 12/18/2024 9:15 AM CDT from Last 3 Months Results * Dipstick, Urine (02/17/2025 2:23 PM JAVA TECH LEAD) Hemoglobin, QL Negative Negative 02/17/2025 3:17 PM JAVA TECH LEAD DTL Leukocyte Esterase, U Negative Negative 02/17/2025 3:17 PM JAVA TECH LEAD DTL Nitrite, U Negative Negative 02/17/2025 3:17 PM JAVA TECH LEAD DTL Ketones, U Negative Negative mg/dL 02/17/2025 3:17 PM JAVA TECH LEAD DTL Glucose, U Negative Negative mg/dL 02/17/2025 3:17 PM JAVA TECH LEAD DTL Urine 02/17/2025 2:23 PM JAVA TECH LEAD 02/17/2025 2:48 PM JAVA TECH LEAD Mane Matthews Pharm.Katherine., R.Ph. LAB URINE ORDER VERÓNICA Final Result Performing Organization Address City/[facility]/ZIP Co de Phone Number [facility] [address] DTL [facility] [address] [place] [address] * (ABNORMAL) Microscopic Manual (02/17/2025 2:23 PM JAVA TECH LEAD) Microscopy Abnormal 02/17/2025 3:58 PM JAVA TECH LEAD DTL RBC <3 <3 /hpf 02/17/2025 3:58 PM JAVA TECH LEAD DTL WBC 1-3 /hpf 02/17/2025 3:58 PM JAVA TECH LEAD DTL Comment: ----REFERENCE VALUE---- <4 (Males) <11 (Females) Casts, Hyaline 1-3 /lpf 02/17/2025 3:58 PM JAVA TECH LEAD DTL Renal Epithelial Cells 1-3(A) /hpf 02/17/2025 3:58 PM JAVA TECH LEAD DTL Squamous Epithelial Cells, U 1-3 /hpf 02/17/2025 3:58 PM JAVA TECH LEAD DTL Crystals Calcium Oxalate crystals present 02/17/2025 3:58 PM JAVA TECH LEAD DTL Urine 02/17/2025 2:23 PM JAVA TECH LEAD 02/17/2025 3:17 PM JAVA TECH LEAD Mane Matthews Pharm.Katherine., R.Ph. LAB URINE ORDER VERÓNICA Final Result Performing Organization Address City/[facility]/ZIP Co de Phone Number [facility] [address] [place] [address], [facility] DTL [facility] [address] [place] [address] * pH, Urine (02/17/2025 2:23 PM JAVA TECH LEAD) pH, U 4.8 4.5 - 8.0 02/17/2025 3:1 0 PM JAVA TECH LEAD DTL Urine 02/17/2025 2:23 PM JAVA TECH LEAD 02/17/2025 2:48 PM JAVA TECH LEAD Mane Matthews Pharm.D., R.Ph. LAB URINE ORDER VERÓNICA Final Result Performing Organization Address [facility] de Phone Number [facility] [address] [place] [address] * (ABNORMAL) Protein/Creatinine Ratio, Random, Urine (02/17/2025 2:23 PM JAVA TECH LEAD) Protein, Total, Random, U 61 mg/dL 02/17/2025 3:26 PM JAVA TECH LEAD DTL Creatinine, Random, U 423(H) 16 - 326 mg/dL 02/17/2025 3:26 PM JAVA TECH LEAD DTL Protein/Creatin ine Ratio 0.14 <0.18 mg/mg 02/17/2025 3:26 PM JAVA TECH LEAD DTL Urine (Urine, Midstream) 02/17/2025 2:23 PM JAVA TECH LEAD 02/17/2025 2:48 PM JAVA TECH LEAD Artemio Dunn M.D. LAB URINE ORDERABLES Final Result Performing Organization Address [facility] Co de Phone Number [facility] [address] [place], [place] [id number] [place] [address] 200 [place] [address] * Osmolality, Urine (02/17/2025 2:23 PM JAVA TECH LEAD) Osmolality, U 472 150 - 1150 mOsm/kg 02/17/2025 3:10 PM JAVA TECH LEAD DTL Urine 02/17/2025 2:23 PM JAVA TECH LEAD 02/17/2025 2:48 PM JAVA TECH LEAD us Mane Matthews Pharm.D., R.Ph. LAB URINE ORDER VERÓNICA Final Result Performing Organization Address [facility] Co de Phone Number [facility] [address] [place] [address], [facility] DTL [facility] [address] [place] [address] * (ABNORMAL) Urinalysis, with Microscopic: Urine, Midstream (02/17/2025 2:23 PM JAVA TECH LEAD) Source Urine, Urine, Midstream 02/17/2025 2:48 PM JAVA TECH LEAD DTL Color, U Yellow 02/17/2025 2:48 PM JAVA TECH LEAD DTL Clarity, U Clear 02/17/2025 2:48 PM JAVA TECH LEAD DTL Protein, U 61(H) <26 mg/dL 02/17/2025 3:26 PM JAVA TECH LEAD DTL Protein/Osmol ality 1.29(H) <0.42 ratio 02/17/2025 3:26 PM JAVA TECH LEAD DTL Predicted 24 HR Protein, U 1202(H) <229 mg/24 h 02/17/2025 3:26 PM JAVA TECH LEAD DTL Predicted Range 382-3788 mg/24 h 02/17/2025 3:26 PM JAVA TECH LEAD DTL Comment Micro done on <10 mL 02/17/2025 3:58 PM JAVA TECH LEAD DTL Urine (Urine, Midstream) 02/17/2025 2:23 PM JAVA TECH LEAD 02/17/2025 2:48 PM JAVA TECH LEAD us Artemio Dunn M.D. LAB URINE ORDERABLES Final Result Performing Organization Address City/[facility]/ZIP Co de Phone Number [facility] [address] [place] [address], [facility] [address] [place] [address] * Thyroid Function Flathead (02/17/2025 10:39 AM JAVA TECH LEAD) TSH, Sensitive 1.7 0.3 - 4.2 mIU/L 02/17/2025 12:05 PM JAVA TECH LEAD DTL Blood (Blood, Venous) 02/17/2025 10:39 AM JAVA TECH LEAD 02/17/2025 11:20 AM JAVA TECH LEAD us Artemio Dunn M.D. LAB BLOOD ADD-ON Final Res ult [facility] [address] [place] [address], [facility] DTL [facility] [address] [place] [address] * (ABNORMAL) CBC with Differential, Blood (02/17/2025 10:39 AM JAVA TECH LEAD) Only the most recent of2 resultswithin the time period is included. Hemoglobin 14.5 13.2 - 16.6 g/dL 02/17/2025 11:27 AM JAVA TECH LEAD DTL Hematocrit 46.7 38.3 - 48.6 % 02/17/2025 11:27 AM JAVA TECH LEAD DTL Erythrocytes 5.82(H) 4.35 - 5.65 x10(12)/L 02/17/2025 11:27 AM JAVA TECH LEAD DTL MCV 80.2 78.2 - 97.9 fL 02/17/2025 11:27 AM JAVA TECH LEAD DTL RBC Distrib Width 18.1(H) 11.8 - 14.5 % 02/17/2025 11:27 AM JAVA TECH LEAD DTL Platelet Count 386(H) 135 - 317 x10(9)/L 02/17/2025 11:27 AM JAVA TECH LEAD DTL Leukocytes 8.8 3.4 - 9.6 x10(9)/L 02/17/2025 11:27 AM JAVA TECH LEAD DTL Neutrophils 6.34 1.56 - 6.45 x10(9)/L 02/17/2025 11:27 AM JAVA TECH LEAD DHPM Lymphocytes 0.66(L) 0.95 - 3.07 x10(9)/L 02/17/2025 11:27 AM JAVA TECH LEAD DTL Monocytes 1.39(H) 0.26 - 0.81 x10(9)/L 02/17/2025 11:27 AM JAVA TECH LEAD DTL Eosinophils 0.33 0.03 - 0.48 x10(9)/L 02/17/2025 11:27 AM JAVA TECH LEAD DTL Basophils 0.08 0.01 - 0.08 x10(9)/L 02/17/2025 11:27 AM JAVA TECH LEAD DTL Blood (Blood, Venous) 02/17/2025 10:39 AM JAVA TECH LEAD 02/17/2025 10:55 AM JAVA TECH LEAD us Artemio Dunn M.D. LAB BLOOD ADD-ON Final Res ult Performing Organization Address [facility]/ZIP Co de Phone Number [facility] [address] [facility] [address] [place] [address] * LD (Lactate Dehydrogenase) (02/17/2025 10:39 AM JAVA TECH LEAD) [facility] LD 181 122 - 222 U/L 02/17/2025 11:46 AM JAVA TECH LEAD DTL Blood (Blood, Venous) 02/17/2025 10:39 AM JAVA TECH LEAD 02/17/2025 11:23 AM JAVA TECH LEAD Result Boogie Artemio Dunn M.D. LAB BLOOD NON ADD-ON Final Result Performing Organization Address [facility] Co de Phone Number [facility] [address] [place] [address] * Bilirubin, Direct (02/17/2025 10:39 AM JAVA TECH LEAD) [facility] Bilirubin, Direct, S 0.3 0.0 - 0.3 mg/dL 02/17/2025 12:05 PM JAVA TECH LEAD DTL Blood (Blood, Venous) 02/17/2025 10:39 AM JAVA TECH LEAD 02/17/2025 11:20 AM JAVA TECH LEAD Result Boogie Dunn M.D. LAB BLOOD ADD-ON Final Res ult Performing Organization Address City/[facility]/ZIP Co de Phone Number [facility] [address] [place] [address], [facility] DTL [facility] [address] [place] [address] * (ABNORMAL) Comprehensive Metabolic Panel (02/17/2025 10:39 AM JAVA TECH LEAD) Only the most recent of2 resultswithin the time period is included. Pathologist [facility] Potassium, S 5.3(H) 3.6 - 5.2 mmol/L 02/17/2025 12:05 PM JAVA TECH LEAD DTL Sodium, S 130(L) 135 - 145 mmol/L 02/17/2025 12:05 PM JAVA TECH LEAD DTL Chloride, S 97(L) 98 - 107 mmol/L 02/17/2025 12:05 PM JAVA TECH LEAD DTL Bicarbonate, S 24 22 - 29 mmol/L 02/17/2025 12:05 PM JAVA TECH LEAD DTL Anion Gap 9 7 - 15 02/17/2025 12:05 PM JAVA TECH LEAD DTL BUN (Blood Urea Nitrogen), S 23 8 - 24 mg/dL 02/17/2025 12:05 PM JAVA TECH LEAD DTL Creatinine 1.13 0.74 - 1.35 mg/dL 02/17/2025 12:05 PM JAVA TECH LEAD DTL Estimated GFR (eGFR) 69 >=60 mL/min/BS A 02/17/2025 12:05 PM JAVA TECH LEAD DTL Comment: Estimated GFR calculated using the 2020 CKD_EPI creatinine equation. Calcium, Total, S 12.2(H) 8.8 - 10.2 mg/dL 02/17/2025 12:05 PM JAVA TECH LEAD DTL Glucose, S 108 70 - 140 mg/dL 02/17/2025 12:05 PM JAVA TECH LEAD DTL Protein, Total, S 6.5 6.3 - 7.9 g/dL 02/17/2025 12:05 PM JAVA TECH LEAD DTL Albumin, S 3.2(L) 3.5 - 5.0 g/dL 02/17/2025 12:05 PM JAVA TECH LEAD DTL Aspartate Aminotransferase (AST), S 17 8 - 48 U/L 02/17/2025 12:05 PM JAVA TECH LEAD DTL Alkaline Phosphatase, S 205(H) 40 - 129 U/L 02/17/2025 12:05 PM JAVA TECH LEAD DTL Alanine Aminotransferase (ALT), S 13 7 - 55 U/L 02/17/2025 12:05 PM JAVA TECH LEAD DTL Bilirubin, Total, S 0.6 0.0 - 1.2 mg/dL 02/17/2025 12:05 PM JAVA TECH LEAD DTL Blood (Blood, Venous) 02/17/2025 10:39 AM JAVA TECH LEAD 02/17/2025 11:20 AM JAVA TECH LEAD Artemio Dunn M.D. LAB BLOOD ADD-ON Final Res ult [facility] [address] [place] [address], [facility] DTL [facility] [address] [place] [address] * Aria Course Complete Treatment Information (02/07/2025 5:15 PM JAVA TECH LEAD) Only the most recent of2 resultswithin the time period is included. Course ID [id number] BRT RAMIREZ ARIA Course Start Date 5 10:15 JAVA TECH LEAD RAMIREZ ARIA Course End Date 5 11:46 JAVA TECH LEAD RAMIREZ ARIA First Treatment Date 5 17:08 JAVA TECH LEAD RAMIREZ ARIA Last Treatment Date 5 17:15 JAVA TECH LEAD RAMIREZ ARIA Treatment Elapsed Days 0 RAMIREZ ARIA Reference Point [id number] RAMIREZ ARIA Dosage Given to Date cGy 2400 RAMIREZ ARIA Plan ID [id number] RAMIREZ ARIA Fractions Treated to Date 1 RAMIREZ ARIA Planned Total Fractions 1 RAMIREZ ARIA Prescribed Dose Per Fraction 2400 RAMIREZ ARIA Prescription Dose in cGy 2400 RAMIREZ ARIA Plan Primary Reference Point [id number] RAMIREZ ARIA 02/07/2025 5:15 PM JAVA TECH LEAD Provider Not In System RADIATION ONCOLOGY ORDERA BLES Final Result Performing Organization Address City/[facility]/ZIP Co de Phone Number RAMIREZ ARIA na * Aria Daily Treatment Information (02/07/2025 5:15 PM JAVA TECH LEAD) Only the most recent of2 resultswithin the time period is included. Course ID [id number] BRT RAMIREZ ARIA Course Start Date 5 10:15 JAVA TECH LEAD RAMIREZ ARIA First Treatment Date 5 17:08 JAVA TECH LEAD RAMIREZ ARIA Last Treatment Date 5 17:15 JAVA TECH LEAD RAMIREZ ARIA Treatment Elapsed Days 0 RAMIREZ ARIA Reference Point [id number] RAMIREZ ARIA Dosage Given to Date cGy 2400 RAMIREZ ARIA Session Dosage Given 2400 RAMIREZ ARIA Plan ID [id number] RAMIREZ ARIA Fractions Treated to Date 1 RAMIREZ ARIA Planned Total Fractions 1 RAMIREZ ARIA Prescribed Dose Per Fraction 2400 RAMIREZ ARIA Prescription Dose in cGy 2400 RAMIREZ ARIA Plan Primary Reference Point [id number] RAMIREZ ARIA 02/07/2025 5:15 PM JAVA TECH LEAD us Provider Not In System RADIATION ONCOLOGY ORDERA BLES Final Result JAMES STANTON na * Initial Rad Onc Treatment Planning CT Simulation (01/31/2025 2:00 PM JAVA TECH LEAD) Narrative RAMIREZ THAA - 01/31/2025 2:00 PM JAVA TECH LEAD Arie Dunne M.D. 01/31/2025 3:14 PM Initial [...] planning. CT images were transferred to the [employer] treatment planning system, after a reference isocenter was determined and marked. Segmentation and treatment planning will take place prior to treatment delivery. Patient set up and imaging was appropriate and completed without incident. Playground Aide use:No us Arie Dunne M.D. [facility] Final Result JAMES STANTON na * DX Hip And Pelvis Left 2-3 Views (01/28/2025 1:49 PM JAVA TECH LEAD) Anatomical Region Laterality Modality Lower Extremity, Pelvis, Hip , Musculoskeletal RST LOS, Musculoskeletal ARZ LOS, Muskuloskeletal FLA LOS Left Digit al Radiography Impressions 01/28/2025 3:08 PM JAVA TECH LEAD As demonstrated on the 12/31/2024 CT, there is a destructive lytic lesion in the root of the superior left pubic ramus. Benign synovial herniation pit left femoral neck. Degenerative arthritis pubic symphysis, sacroiliac joints, and lower lumbar spine. Narrative 01/28/2025 3:08 PM JAVA TECH LEAD EXAM: DX HIP AND PELVIS LEFT 2-3 VIEWS Procedure Note Daniel Phipps M.D. - 01/28/2025 EXAM: DX HIP AND PELVIS LEFT 2-3 VIEWS IMPRESSION: As demonstrated on the 12/31/2024 CT, there is a destructive lytic lesionin the root of the superior left pubic ramus. Benign synovial herniationpit left femoral neck. Degenerative arthritis pubic symphysis, sacroiliacjoints, and lower lumbar spine. us Artemio Dunn M.D. IMG DIAGNOSTIC IMAGING PRO CEDURES Final Result * MR Brain without and with IV [...] submitted entoto in cassette A1. Grossed by AJD. (A) 01/13/2025 2:00 PM CDT DTL Source [...] LAB SURG PATH ORDERABLES F inal Result [facility] [address] [place] [address], [facility] DT [address] [place] [address] * (ABNORMAL) Prothrombin Time (PT) (01/10/2025 8:02 AM CDT) Only the most recent of2 resultswithin the time period is included. Pathologist [facility] Prothrombin Time, P 13.8(H) 9.4 - 12.5 sec 01/10/2025 8:31 AM CDT DTL INR 1.3 0.9 - 1.1 01/10/2025 8:31 AM CDT DTL Comment: ----ADDITIONAL INFORMATION---- Standard intensity warfarin therapeutic range: 2.0 to 3.0 High intensity warfarin therapeutic range: 2.5 to 3.5 Blood (Blood, Venous) 01/10/2025 8:02 AM CDT 01/10/2025 8:16 AM CDT us Natalie Hidalgo APRN, C.N.P., M.S.N. LAB BLOOD ADD- ON Final Result Performing Organization Address City/[facility]/ZIP Co de Phone Number [address] [place] [address] * (ABNORMAL) Platelet Count (01/10/2025 8:02 AM CDT) Platelet Count 402(H) 135 - 317 x10(9)/L 01/10/2025 8:22 AM CDT DTL Blood (Blood, Venous) 01/10/2025 8:02 AM CDT 01/10/2025 8:15 AM CDT us Artemio Dunn M.D. LAB BLOOD ADD-ON Final Res ult [facility] [address] [place] [address] * Interpretation of Outside CT Chest (01/08/2025 [...] disease. 3. Sequelae of previous granulomatous infection. Artemio Dunn M.D. IMPrem CT PROCEDURES Final [...] adrenal, liver, soft tissueand skeletal metastases. Artemio A Dunn M.D. IMG CT PROCEDURES Final Re sult * CT ABDOMEN PELVIS W CON-Outside CT Body (12/31/2024 12:55 PM CDT) Only the most recent of2 resultswithin the time period is included. Narrative [facility] - 01/02/2025 12:18 PM CDT This order has been created and auto-finalized to support the import of outside images. If available, original interpretation can be found on the Media Tab in Chart Review, in Document Viewer, as an image in InfinityView or as an Addendum. If a re-interpretation or overread is required please follow defined workflow. us Provider Not In System IMG CT PROCEDURES Final R esult Performing Organization Address [facility] Co de Phone Number [facility] NA * XR chest 2V-Outside Chest Xray (12/18/2024 9:15 AM CDT) Narrative [facility] - 01/02/2025 12:18 PM CDT This order has been created and auto-finalized to support the import of outside images. If available, original interpretation can be found on the Media Tab in Chart Review, in Document Viewer, as an image in InfinityView or as an Addendum. If a re-interpretation or overread is required please follow defined workflow. 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 See document viewer. 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
--- NOTE | 2025-02-18 18:44 | ED_ITS ---
HPI - General Adult General Time Seen by Provider: 18:44 Date Seen: 02/18/25 Chief complaint: Fever Stated complaint: upper back pain Time Seen by Provider: 02/18/25 18:43 Source: patient, RN notes reviewed and old records reviewed Mode of arrival: ambulatory Limitations: no limitations History of Present Illness HPI narrative: This 75-year-old male is coming in accompanied by his with increasing weakness overnight. He has went from his cane to a walker overnight, just felt more weak. He did have a fever on arrival here in was not aware of this. He has noticed increased pain in his upper back as well as his low back. He did start treatment for renal cell carcinoma at [facility]. Received an infusion of nivolumab yesterday, took 40 mg cabozantinib today. He otherwise is on lisinopril 10 mg daily, simvastatin 20 mg daily and a multivitamin. He was in urgent care on February 05, did have a rib fracture of his left 10th rib that was isolated. He has had a history of right radical nephrectomy back in 2008 but has subsequently been found to have presumed recurrent renal cell carcinoma. He had a liver mass that he was seen for preoperative evaluation for biopsy on December [address] Song. I presume that this came back as metastatic renal cell carcinoma. He had chest imaging done for coughing, he notes he has had cough issue since October which is in line with the history I am seeing in his chart. He had a large liver mass on that chest CT come lytic lesion on the C3 vertebral body, many pulmonary nodules. He was losing weight and continuing to cough. He does continue to have a dry irritative cough. He has noted it just recently that he is having urinary frequency without dysuria or hematuria. He notes no abdominal pain, no nausea vomiting, no diarrhea. They did talk to [facility], they thought he might need to come in and get evaluated, maybe have imaging or scans done. I also see that his calcium was 13.4 on December 30, obviously will be rechecking that today. He notes on his way coming in, just coming down the stairs after getting to the landing, became so weak, felt like his legs were going to go out on him, he was able to sit down, no trauma. Related Data Home Medications ?Medication ?Instructions ?Recorded ?Confirmed multivitamin (Multiple Vitamins 1 tab PO QDAY 05/03/22 02/05/25 tablet) Previous Rx's ?Medication ?Instructions ?Recorded lisinopril 10 mg tablet 10 mg PO QDAY #90 tabs 07/03 simvastatin 20 mg tablet 20 mg PO QDAY #90 tabs 07/03 triamterene 37.5 1 tab PO QDAY #90 tabs 07/03 mg-hydrochlorothiazide 25 mg tablet Held on 01/09/25. Instructions: on hold sennosides 8.6 mg tablet (senna) 8.6 mg PO QHS PRN con stipation #20 02/05/25 tabs Allergies Allergy/AdvReac Type Severity Reaction Status Date / Time No Known Drug Allergies Allergy Verified 02/05/25 08:17 Review of Systems Status of ROS: Reports: 6 or more systems reviewed and unremarkable except as noted in History and below [facility] Medical History Constipation ?K59.00 - Constipation, unspecified (ICD-10) Fracture of left tenth rib ?S22.32XA - Fracture of one rib, left side, initial encounter for closed fracture (ICD-10) Rib pain on left side ?R07.89 - Other chest pain (ICD-10) Preoperative evaluation to rule out surgical contraindication ?Z01.818 - Encounter for other preprocedural examination (ICD-10) Bronchitis ?J40 - Bronchitis, not specified as acute or chronic (ICD-10) Wheezing ?R06.2 - Wheezing (ICD-10) Right shoulder pain ?M25.511 - Pain in right shoulder (ICD-10) Fracture of finger of left hand (12/18/14) ?S62.609A - Fracture of unspecified phalanx of unspecified finger, initial encounter for closed fracture (ICD-10) Surgical History History of right radical nephrectomy (11/06/08) ?Z90.5 - Acquired absence of kidney (ICD-10) History of colonoscopy ?Z98.890 - Other specified postprocedural states (ICD-10) Family History Father Myocardial infarction, Onset Age: 87 Peripheral arterial disease Family/Other Diabetes Social History Narrative: Alcohol ingestion, 1-4 drinks/week Does not use illicit drugs What is your current living situation?: I presently have a place to live Problems where you live: no known problems In the past 12 months, utilities in danger of being shut off: no In past 12 months, lack of transportation kept you from medical appts, meetings, work, or getting things needed for daily living: no In the past 12 mos, have been you worried that your food would run out before you had money to buy more?: never true In the past 12 mos, the food you bought just didn't last and you didn't have money to buy more?: never true Smoking Status: Never smoker How often does anyone, including family, friends and others, physically hurt you : never How often does anyone, including family, friends and others, insult or talk down to you: never How often does anyone, including family, friends and others, threaten you with harm: never How often does anyone, including family, friends and others, scream or curse at you: never Exam Const: Vital Signs, click to edit/add: Vital Signs - 24 hr 02/18/25 18:40 02/18/25 18:46 02/18/25 19:00 Temperature 100.6 F H Pulse Rate 114 H 114 H Pulse Rate [Pulse Oximeter] 114 H Respiratory Rate 20 24 Blood Pressure Blood Pressure [Ri ght Upper Arm] 140/73 H Pulse Oximetry 91 93 92 Oxygen Delivery Me thod Room Air 02/18/25 19:09 02/18/25 19:15 02/18/25 19:27 Temperature Pulse Rate 110 H 110 H Pulse Rate [Pulse Oximeter] Respiratory Rate 16 Blood Pressure 124/70 Blood Pressure [Ri ght Upper Arm] Pulse Oximetry 92 91 92 Oxygen Delivery Me thod 02/18/25 19:30 02/18/25 19:45 02/18/25 20:00 Temperature Pulse Rate 110 H 112 H 112 H Pulse Rate [Pulse Oximeter] Respiratory Rate 18 Blood Pressure Blood Pressure [Ri ght Upper Arm] Pulse Oximetry 92 90 90 Oxygen Delivery Me thod 02/18/25 20:15 02/18/25 20:30 02/18/25 20:35 Temperature 99.7 F H Pulse Rate 110 H 110 H Pulse Rate [Pulse Oximeter] Respiratory Rate 20 Blood Pressure Blood Pressure [Ri ght Upper Arm] Pulse Oximetry 93 90 Oxygen Delivery Me thod 02/18/25 20:36 02/18/25 20:45 02/18/25 21:00 Temperature Pulse Rate 109 H 107 H 104 H Pulse Rate [Pulse Oximeter] Respiratory Rate Blood Pressure 122/74 Blood Pressure [Ri ght Upper Arm] Pulse Oximetry 91 88 91 Oxygen Delivery Me thod 02/18/25 21:19 02/18/25 21:30 02/18/25 21:45 Temperature Pulse Rate 98 98 98 Pulse Rate [Pulse Oximeter] Respiratory Rate Blood Pressure Blood Pressure [Ri ght Upper Arm] Pulse Oximetry 92 92 91 Oxygen Delivery Me thod 02/18/25 22:00 02/18/25 22:15 02/18/25 22:30 Temperature Pulse Rate 96 96 95 Pulse Rate [Pulse Oximeter] Respiratory Rate Blood Pressure Blood Pressure [Ri ght Upper Arm] Pulse Oximetry 92 90 90 Oxygen Delivery Me thod 02/18/25 22:31 02/18/25 22:32 02/18/25 22:34 Temperature 97.2 F L 97.2 F L Pulse Rate 91 Pulse Rate [Pulse Oximeter] 92 Respiratory Rate 18 Blood Pressure 126/73 Blood Pressure [Ri ght Upper Arm] 126/73 Pulse Oximetry 91 92 Oxygen Delivery Me thod Room Air 02/18/25 22:45 02/18/25 23:00 02/18/25 23:15 Temperature Pulse Rate 93 90 93 Pulse Rate [Pulse Oximeter] Respiratory Rate Blood Pressure Blood Pressure [Ri ght Upper Arm] Pulse Oximetry 90 93 90 Oxygen Delivery Me thod 02/18/25 23:30 02/18/25 23:45 Temperature Pulse Rate 91 98 Pulse Rate [Pulse Oximeter] Respiratory Rate Blood Pressure Blood Pressure [Ri ght Upper Arm] Pulse Oximetry 94 94 Oxygen Delivery Me thod This 75-year-old male is cachectic appearing but alert, interactive, no apparent distress. He is lying in the bed. Speech is slow but succinct. He almost appears like he has jaundice potentially with scleral icterus, has bronze the looking skin. Symmetrical facial function. Lungs actually are clear, no wheezing or crackles, CV fast but regular, no murmur. Abdomen is soft, nontender, no rebound or guarding. He has no lower extremity edema. Patient has generalized tenderness in his central and bilateral paraspinous thoracic spine. In his lower lumbar spine, it is more off to the sides of the spine in the muscles generally. There is not necessarily any discrete point tenderness when I palpate his back. He is weak enough that he can not really sit up. Documenting provider has reviewed patient's vital signs: yes Course Course ED Course: This 75-year-old male is febrile, initiated chemotherapy for renal cell carcinoma, presumably metastatic given the history that I am putting together. With his weakness, could be infectious, could be contributed to by hypercalcemia. He is having increased back pain both in the upper thoracic and lower back, this certainly could be metastatic lesions, could be body aches from fever and infection. Will do triple viral swab as this patient obviously has been around medical facilities, could have contracted viral etiology. He is having urinary symptoms, urinalysis has been collected. As I talk to him, he feels like he already has to go again. Will be doing blood cultures, will give him some Tylenol for fever control and initiate some IV fluids. We will be doing full blood work. May need to consider CT imaging with chest abdomen pelvis and reconstruction of his thoracic and lumbar spine. Looking up the cabozantinib side effects, hemorrhage, GI perforation fistula, thromboembolic events are possibilities. Fatigue and diarrhea are common side effects, he is not exhibiting diarrhea. The nivolumab is a human IgG for monoclonal antibody with common adverse events including fatigue, rash, pruritus, diarrhea and nausea. Immune mediated adverse events may occur and require monitoring. Reevaluation(s) Time of Reevaluation #1: 20:48 Reevaluation #1: Still awaiting to hear back from [facility]. Have reviewed all of patient's labs. I am going to go ahead and order chest abdomen pelvis with IV contrast, reconstitute his thoracic and lumbar spine on CT given his pain. I will update patient and his . Time of Reevaluation #2: 22:51 Reevaluation #2: Have reviewed with patient and his the CT findings. We discussed specifically at length the T3 vertebral fracture, pathologic, extension towards the cord in in the ventral epidural space. There is also minimal retropulsion of this compression fracture. He has multiple cancer findings on the CT. There is a new lesion in the lumbar area. He has progression of many of his areas of cancer. Copies of CT reports were given. He would like something for pain, has just been doing Tylenol at home. Consultations Consultation #1: Have called [facility], they will be contacting Oncology and calling me back. 2053: Have heard back from [facility] and did speak with Dr. Saunders. We have reviewed the patient's case. He states that these medicines are not typically bone marrow suppressing. There can be autoimmune issues but he feels it would be a bit early. He agrees with doing the CT imaging, I can contact him back if there is anything that we need to discuss. If I do not find any source, consider holding the cabozantinib for few days and touching base with his o ncology team later this week. Patient's sodium was 130 yesterday, calcium was 12.2 yesterday. Calcium had been higher earlier. Reviewed with the organizational consultant that his sodium was stable here 129, looks to have chronic hyponatremia. We had a higher calcium earlier in December as well. 10:32 p.m.: Have contacted [facility] back after looking at patient's imaging. Think he will need further MR imaging of his spine and potential intervention prior to discharge to home. I cannot do MR imaging here. He may need radiation oncology. This is beyond the expertise of our facility and my personal medical knowledge. He requires Oncology and specialty care within Oncology at this time. 11:37 p.m.: Have contacted the transfer center back at [facility]. The medical lab director of the day was paged, the triage nurse did talk to her about the patient. They are reaching out to [facility] for their consideration and have them review this patient. They will be contacting us later. Will be signing this patient out to Dr. Herring. 11:57 p.m.: transfer center has called back. Patient has been [facility] to [facility] by Dr. Posadas. They will plan on doing MR imaging of his spine and decide on further course based on that. Patient and his were updated. She is going to go home and sleep. There where there may be a delay in transfer as the ambulance is transferring another patient out to the [facility] at this time. Time: 20:13 Vital Signs Vital signs: Initial Vital Signs Temperature 100.6 F H 12/02/25 18:40 Temperature Source Oral 02/18/25 18:40 Pulse Rate 114 H 02/18/25 18:40 Respiratory Rate 20 02/18/25 18:40 Blood Pressure 140/73 H 02/18/25 18:40 Blood Pressure Mean 95 02/18/25 18:40 Blood Pressure Position Sitting 02/18/25 18:40 Pulse Oximetry 91 02/18/25 18:40 Oxygen Delivery Method Room Air 02/18/25 18:40 Vital Signs Temperature 100.6 F H 02/18/25 18:40 Pulse Rate 114 H 02/18/25 18:40 Respiratory Rate 20 02/18/25 18:40 Blood Pressure 140/73 H 02/18/25 18:40 Pulse Oximetry 91 02/18/25 18:40 Oxygen Delivery Method Room Air 02/18/25 18:40 Temperature 98.7 F 02/19/25 05:45 Pulse Rate 114 H 02/19/25 07:01 Respiratory Rate 20 02/19/25 02:58 Blood Pressure 138/68 02/19/25 07:01 Pulse Oximetry 94 02/19/25 07:01 Oxygen Delivery Method Room Air 02/18/25 22:34 Medications Administered Medications: Discontinued Medications Generic Name Dose Route Start Last Admin Trade Name Freq PRN Reason Stop Dose Admin Acetaminophen 1,000 mg 02/19/25 01:07 02/19/25 01:13 Acetaminophen 500 Mg Tablet PO 02/19/25 01:08 1,000 mg ONCE ONE Administration Hydromorphone HCl 0.2 mg 02/18/25 23:16 02/19/25 03:29 Hydromorphone 0.5 Mg/0.5 Ml Inj IVP 0.2 mg Q2H PRN Administration Sodium Chloride 1,000 mls @ 500 mls/hr 02/18/25 18:52 02/18/25 22:32 0.9 % Sodium Chloride 1000 Ml IV 02/18/25 20:51 Infused .Q2H LENKA Infusion Acetaminophen 1,000 mg in 100 mls @ 400 mls/hr 02/18/25 18:51 02/18/25 20:37 Acetaminophen Inj IVPB 02/18/25 19:05 Infused ONCE ONE Infusion Sodium Chloride 1,000 mls @ 500 mls/hr 02/19/25 03:15 02/19/25 05:48 0.9 % Sodium Chloride 1000 Ml IV 02/19/25 05:14 Infused .Q2H LENKA Infusion Piperacillin Sod/Tazobactam 100 mls @ 200 mls/hr 02/19/25 05:40 02/19/25 06:40 Sod 4.5 gm/ Sodium Chloride IVPB 02/19/25 05:41 Infused ONCE ONE Infusion Medical Decision Making Lab Data Lab results reviewed: Yes I reviewed the patient's lab results Lab results narrative: Blood cultures pending. Labs: Lab Results 02/18/25 02/18/25 02/18/25 Range/Units 18:35 18:51 19:10 WBC 7.78 (4.50-11.00) K/uL RBC 5.66 (4.30-5.90) m/uL Hgb 14.0 (13.5-17.5) gm/dL Hct 45.1 (37.0-53.0) % MCV 80 (80-100) fL MCH 25 L (26-34) pg MCHC 31 L (32-36) gm/dL RDW Coeff of Marifer 17.8 H (11.5-15.5) % Plt Count 289 (140-440) K/uL Neut % (Auto) 72.2 H (42.0-72.0) % Lymph % (Auto) 4.9 L (20-44) % [place] % (Auto) 17.5 H (0.0-11.0) % Eos % (Auto) 3.9 (0.0-7.0) % Baso % (Auto) 0.6 (0.0-3.0) % Neut # (Auto) 5.60 (1.7-7.0) K/uL Lymph # (Auto) 0.40 L (0.90-2.90) K/uL [place] # (Auto) 1.40 H (0.00-0.90) K/UL Eos # (Auto) 0.30 (0.00-0.50) K/uL Baso # (Auto) 0.05 (0.00-0.30) K/uL Abs Immat Gran (auto) 0.07 (0.00-0.30) K/uL Imm/Tot Granulo (auto) 0.9 % Sodium 129 L (135-149) mmol/L Potassium 5.2 H (3.6-5.1) mmol/L Chloride 95 L (96-114) mmol/L Carbon Dioxide 24 (20-32) mmol/L Anion Gap 10 (7-15) mEq/L BUN 31 H (7-30) mg/dL Creatinine 1.2 (0.5-1.5) mg/dL Estimated Creat Clear 52.76 Estimated GFR 64 ml/min Glucose 112 (60-115) mg/dL Lactate 1.0 (0.5-1.9) mmol/L Calcium 11.9 H (8.4-10.6) mg/dL Total Bilirubin 0.7 (0.1-1.5) mg/dL AST 27 (12-35) U/L ALT 15 (4-50) U/L Alkaline Phosphatase 209 H (40-150) U/L POC Troponin I High Sensi 7.8 (2.9-28.0) pg/mL C-Reactive Protein 21.6 H (0.5-1.0) mg/dL NT-Pro-B Natriuret Pep 719 H (See Note) pg/mL Total Protein 7.0 (6.0-8.3) g/dL Albumin 3.4 (3.3-5.0) g/dL Urine Color Yellow (Yellow) Urine Appearance Clear (Clear) Urine pH 5.5 (5.0-8.5) Ur Specific [place] 1.015 (1.000-1.030) Urine Protein 1+ A (Negative) Urine Glucose (UA) Negative (Negative) Urine Ketones Negative (Negative) Urine Blood Negative (Negative) Urine Nitrite Negative (Negative) Urine Bilirubin Negative (Negative) Urine Urobilinogen 0.2 (0.2-1.0) Ur Leukocyte Esterase Negative (Negative) Urine RBC 0-2 (0-2) Urine WBC 0-2 (0-5) Ur Squamous Epith Cells Few (None-Few) Urine Bacteria None (None) SARS-CoV-2 (PCR) (Negative) Influenza Type A (PCR) (Negative) Influenza Type B (PCR) (Negative) RSV (PCR) (Negative) POC Creatinine 1.3 (0.6-1.3) mg/dl 02/18/25 Range/Units 19:25 WBC (4.50-11.00) K/uL RBC (4.30-5.90) m/uL Hgb (13.5-17.5) gm/dL Hct (37.0-53.0) % MCV (80-100) fL MCH (26-34) pg MCHC (32-36) gm/dL RDW Coeff of Marifer (11.5-15.5) % Plt Count (140-440) K/uL Neut % (Auto) (42.0-72.0) % Lymph % (Auto) (20-44) % [place] % (Auto) (0.0-11.0) % Eos % (Auto) (0.0-7.0) % Baso % (Auto) (0.0-3.0) % Neut # (Auto) (1.7-7.0) K/uL Lymph # (Auto) (0.90-2.90) K/uL [place] # (Auto) (0.00-0.90) K/UL Eos # (Auto) (0.00-0.50) K/uL Baso # (Auto) (0.00-0.30) K/uL Abs Immat Gran (auto) (0.00-0.30) K/uL Imm/Tot Granulo (auto) % Sodium (135-149) mmol/L Potassium (3.6-5.1) mmol/L Chloride (96-114) mmol/L Carbon Dioxide (20-32) mmol/L Anion Gap (7-15) mEq/L BUN (7-30) mg/dL Creatinine (0.5-1.5) mg/dL Estimated Creat Clear Estimated GFR ml/min Glucose (60-115) mg/dL Lactate (0.5-1.9) mmol/L Calcium (8.4-10.6) mg/dL Total Bilirubin (0.1-1.5) mg/dL AST (12-35) U/L ALT (4-50) U/L Alkaline Phosphatase (40-150) U/L POC Troponin I High Sensi (2.9-28.0) pg/mL C-Reactive Protein (0.5-1.0) mg/dL NT-Pro-B Natriuret Pep (See Note) pg/mL Total Protein (6.0-8.3) g/dL Albumin (3.3-5.0) g/dL Urine Color (Yellow) Urine Appearance (Clear) Urine pH (5.0-8.5) Ur Specific [place] (1.000-1.030) Urine Protein (Negative) Urine Glucose (UA) (Negative) Urine Ketones (Negative) Urine Blood (Negative) Urine Nitrite (Negative) Urine Bilirubin (Negative) Urine Urobilinogen (0.2-1.0) Ur Leukocyte Esterase (Negative) Urine RBC (0-2) Urine WBC (0-5) Ur Squamous Epith Cells (None-Few) Urine Bacteria (None) SARS-CoV-2 (PCR) Negative SARS-CoV-2 (Negative) Influenza Type A (PCR) Negative PCR FLU A (Negative) Influenza Type B (PCR) Negative PCR FLU B (Negative) RSV (PCR) Negative PCR RSV (Negative) POC Creatinine (0.6-1.3) mg/dl Imaging Data CT Chest/Ab/Pelvis: Attestation: I have reviewed the pertinent imaging results. Radiologist's impression: Patient: LAMAR AGUDELO Facility:?[facility] Patient ID:?[id number] Site Patient ID:?[id number]. Site :?[id number] Study:?CT-Chest/Abd/Pelvis 74CC ISOVUE 370-02/18/2025 9:31:57 PM Ordering Physician:Hardik Blood Final Report: INDICATION: Fever, on chemotherapy. Metastatic renal cell carcinoma. TECHNIQUE: CT chest, abdomen and pelvis acquired 74 mL Isovue 370 IV contrast. COMPARISON: CT chest 12/25/2024, CT abdomen pelvis 12/31/2024. FINDINGS: CHEST: Cardiovascular structures: No cardiomegaly or pericardial effusion. Main pulmonary artery dilated to 3.3 cm. Ascending thoracic aortic aneurysm measures 4.3 cm, likely slightly increased compared to previous exam from 12/25/2024. There are coronary artery calcifications. Mediastinum and adilene: Prominent right hilar lymph node measures 1.3 cm in short axis (series 3, image 59), increased compared to prior. Lungs and pleura: Right lower lobe mass measuring 4.2 cm (series 4, image 58), previously 3.1 cm. Innumerable additional pulmonary nodules throughout the lungs also demonstrated interval increase in size. For example conglomerate of right upper lobe nodules measuring up to 3.3 x 2.3 cm (series 4, image 49), previously more distinct from each other and measuring up to a combined 2.5 x 2.0 cm. Left upper lobe nodule measuring 1.8 x 1.8 cm (image 50), previously 1.3 x 1.2 cm. Trace right and minimal left pleural effusions with associated compressive atelectasis. Additional questionable right lower lobe consolidation. No pneumothorax. Patent airways. Chest wall and axilla: No suspicious chest wall mass or fluid collection. No axillary lymphadenopathy. Bones: Lytic lesion of the left lateral 8th rib with associated pathologic fracture (series 3, image 87), new compared to prior. Lytic lesion with prominent soft tissue component at the posterior left 9th rib at the costovertebral articulation with associated pathologic fracture (series 3, image 69), also new compared to prior. Lytic lesion of the T12 vertebral body with soft tissue extension measuring up to 2.3 cm (series 3, image 100), previously 0.5 cm and now with new mild associated vertebral body height loss. Prominent lytic lesion of the T3 vertebral body posteriorly likely extending within the epidural space, measuring up to 1.7 cm (series 3, image 27), increased in size compared to prior, extending to the posterior elements on the right, now with new vertebral body height loss centrally measuring greater than 50 percent with minimal vertebral body retropulsion. ABDOMEN AND PELVIS: Liver: Left hepatic metastasis measuring 1.6 cm (series 8, image 45), previously 0.7 cm. Right hepatic metastasis measuring up to 2.4 cm (image 54), previously 0.6 cm. New right hepatic metastasis measuring 1.3 cm (image 38). Gallbladder and bile ducts: Unremarkable. Pancreas: Unremarkable. Spleen: Unremarkable. Adrenal glands: Similar-appearing left adrenal metastases. Kidneys: Right nephrectomy. No left-sided hydronephrosis or hydroureter. No obstructing calculi. GI tract: No bowel obstruction. No suspicious bowel wall thickening. No CT evidence of acute appendicitis. Vascular structures: Atherosclerotic calcifications of the abdominal aorta and its major branches. No abdominal aortic aneurysm. Grossly patent vasculature, though evaluation is somewhat limited on this exam. Peritoneum/Retroperitoneum/Abdominal Wall/lymph nodes: Large right retroperitoneal mass measuring 12.8 x 10.7 cm, similar to prior. No ascites or pneumoperitoneum. Several prominent mesenteric nodules/lymph nodes appear new/increased in size compared to prior. For example, small mesenteric nodule centrally measuring 0.5 cm (series 8 image 107), left of midline mesenteric nodules versus lymph nodes measuring up to 1.1 cm (image 93). Pelvic Organs: Normal bladder. Unremarkable prostate and seminal vesicles. Bones and superficial soft tissues: Prominent lytic lesion with soft tissue component at the left anterior acetabulum measuring 4.2 x 3.5 cm (series 8, image 137), previously 2.5 x 2.3 cm, extending to the superior pubic ramus. Ly tic lesion of the left transverse process of L5 is also increased compared to prior (image 93) with associated soft tissue component. Unchanged advanced disc space height loss at L5-S1. superficial left gluteal soft tissue nodule measuring 0.8 cm (image 104), similar to prior. Additional right anterior abdominal wall superficial soft tissue nodule measuring 0.6 cm (image 91) is new compared to prior. IMPRESSION: 1. Interval increase in size of right lower lobe mass measuring up to 4.2 cm with interval increase in size of innumerable additional pulmonary nodules/masses, compatible with interval progression of disease. 2. New trace right and minimal left pleural effusions with right lung base consolidation versus atelectasis. Correlate for superimposed infectious process. 3. Interval increase in size of numerous skeletal metastases with prominent T3 vertebral body lytic lesion likely extending within the ventral epidural space and now with new associated pathologic fracture resulting in greater than 50 percent loss of vertebral body height and minimal vertebral body retropulsion. 4. Increased size of T12 vertebral body lytic lesion with soft tissue components and mild associated pathologic compression deformity. Increased size of left lateral 8th and left posterior 9th rib lesions with associated soft tissue components and pathologic fractures. 5. Large left acetabular lesion anteriorly, increased in size. 6. New/increased hepatic metastases. 7. New superficial soft tissue nodule at the right anterior ventral abdominal wall. 8. New mesenteric nodularity versus lymph nodes may be indicative of peritoneal carcinomatosis. 9. Grossly unchanged right retroperitoneal mass and left adrenal metastases. 10. Ascending thoracic aortic aneurysm measuring 4.3 cm, likely slightly incr eased compared to prior. Please note that all CT scans at this facility use dose modulation, iterative reconstruction, and/or weight-based dosing when appropriate to reduce radiation dose to as low as reasonably achievable. Dictated by Varun Siddiqui MD @ 02/18/2025 10:16:00 PM (Electronic Signature) CT thoracic spine: Attestation: I have reviewed the pertinent imaging results. Radiologist's impression: Patient: LAMAR AGUDELO Facility:?[facility] Patient ID:?[id number] Site Patient ID:?[id number] Site :?[id number] Study:?CT-Spine Thoracic WITHOUT-02/18/2025 9:30:51 PM Ordering Physician:?Clem Blood Final Report: INDICATION: Back pain. Metastatic renal cell carcinoma. TECHNIQUE: CT thoracic spine without contrast. COMPARISON: CT chest 12/25/2024. FINDINGS: Prominent lytic lesion of the T3 vertebral body posteriorly likely extending within the ventral epidural space, measuring up to 1.7 cm, increased in size compared to prior and extending to the posterior elements on the right, also with new vertebral body height loss centrally measuring greater than 50 percent with minimal vertebral body retropulsion. Increased size of T12 vertebral body lytic lesion on the right with soft tissue extension, measuring up to 2.3 cm, now with new mild vertebral body height loss inferiorly, less than 25 percent. No significant vertebral body retropulsion. Increased size of left posterior 9th rib lesion measuring up to 1.7 cm with soft tissue components at the level of the costovertebral articulation. Associated pathologic fracture also present, new compared to prior. The remainder of the thoracic vertebral bodies grossly maintain their normal heights with preserved kyphosis. There is multilevel spondylosis and degenerative disc disease with multifocal disc space height loss. Paraspinal soft tissues are grossly within normal limits. Please refer to separately dictat ed CT of the chest abdomen and pelvis for discussion of intrathoracic and intra- abdominal contents. IMPRESSION: 1. Interval progression of osseous metastatic disease with increased size of T3 vertebral body lesion extending to the posterior elements on the right and likely within the ventral epidural space. Associated pathologic fracture with greater than 50 percent loss of vertebral body height and minimal vertebral body retropulsion. 2. Increased size of T12 vertebral body lytic lesion with new mild pathologic compression deformity of the inferior endplate with less than 25 percent loss of vertebral body height and no significant vertebral body or retropulsion. 3. Increased left posterior 9th rib lesion at the level of the costovertebral articulation with associated pathologic fracture. Please note that all CT scans at this facility use dose modulation, iterative reconstruction, and/or weight-based dosing when appropriate to reduce radiation dose to as low as reasonably achievable. Dictated by Varun Siddiqui MD @ 02/18/2025 10:22:05 PM (Electronic Signature) CT lumbar spine: Attestation: I have reviewed the pertinent imaging results. Radiologist's impression: Patient: LAMAR AGUDELO Facility:?[facility] Patient ID:?[id number] Site Patient ID:?[id number] Site :?1950 Study:?CT-Spine Lumbar WITHOUT-02/18/2025 9:31:07 PM Ordering Physician:?Clem Blood Final Report: INDICATION: Back pain. Metastatic renal cell carcinoma. TECHNIQUE: CT lumbar spine without contrast. COMPARISON: CT abdomen and pelvis 12/31/2024. FINDINGS: New/increased lytic lesion of the left transverse process of L5 measuring up to 1.4 x 1.3 cm (series 4, image 116) with soft tissue component posteriorly. The lumbar vertebral bodies maintain their normal heights with preserved lordosis. There is multilevel spondylosis and degenerative disc disease with grossly unchanged advanced disc space height loss at L5-S1. Multilevel central spinal canal stenosis, similar to prior exams. Please refer to separately dictated CT examinations of the chest abdomen and pelvis and thoracic spine for discussion of the thoracic spine and intra abdominal/pelvic contents. IMPRESSION: New/increased lytic lesion of the left transverse process of L5 measuring up to 1.4 cm with posterior soft tissue extension. Please note that all CT scans at this facility use dose modulation, iterative reconstruction, and/or weight-based dosing when appropriate to reduce radiation dose to as low as reasonably achievable. Dictated by Varun Siddiqui MD @ 02/18/2025 10:25:59 PM (Electronic Signature) ECG Data Attestation: I personally reviewed and interpreted this ECG as follows: (Sinus tachycardia, 110 beats per minute. 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
[2025-02-18 18:56] LABS: Appearance Urine Clear (Clear)
[2025-02-18 19:24] LABS: Lactate* 1.0 mmol/L (0.5-1.9)
[2025-02-18 19:29] LABS: Hematocrit* 45.1 % (37.0-53.0); Hemoglobin* 14.0 gm/dL (13.5-17.5); Immature Granulocytes Abs Auto 0.07 K/uL (0.00-0.30); Immature Granulocytes Pct Auto 0.9 %; Mean Corpuscular HGB Conc 31 gm/dL (32-36); Mean Corpuscular Hemoglobin 25 pg (26-34); Mean Corpuscular Volume 80 fL (80-100); RDW Coefficient of Variation % 17.8 % (11.5-15.5); Red Blood Count* 5.66 m/uL (4.30-5.90); White Blood Count* 7.78 K/uL (4.50-11.00)
[2025-02-18 19:40] LABS: Lymphocytes Absolute Auto 0.40 K/uL (0.90-2.90); Slide Review Reflex No
[2025-02-18 19:43] LABS: Albumin* 3.4 g/dL (3.3-5.0); Chloride* 95 mmol/L (96-114); Sodium* 129 mmol/L (135-149)
[2025-02-18 19:44] LABS: Potassium* 5.2 mmol/L (3.6-5.1)
[2025-02-18 19:46] LABS: Alanine Aminotransferase* 15 U/L (4-50); Alkaline Phosphatase* 209 U/L (40-150); Anion Gap 10 mEq/L (7-15); Aspartate Amino Transferase* 27 U/L (12-35); Bilirubin Total* 0.7 mg/dL (0.1-1.5); Blood Urea Nitrogen* 31 mg/dL (7-30); Carbon Dioxide* 24 mmol/L (20-32); Creatinine* 1.2 mg/dL (0.5-1.5); Est. Creatinine Clearance* 52.76; Estimated Glomerular Filt Rate 64 ml/min; Total Protein* 7.0 g/dL (6.0-8.3)
[2025-02-18 19:47] LABS: Calcium* 11.9 mg/dL (8.4-10.6); Glucose* 112 mg/dL (60-115)
[2025-02-18 19:51] LABS: Creatinine, Point-of-Care* 1.3 mg/dl (0.6-1.3)
[2025-02-18] MEDS: ACETAMINOPHEN INJ 1,000 MG/100 ML VIAL 400 MG IVPB (19:53)
[2025-02-18 19:57] LABS: NT Pro B Type NatriureticPept* 719 pg/mL (See Note)
[2025-02-18 20:22] LABS: PCR FLU A Negative PCR FLU A (Negative); PCR FLU B Negative PCR FLU B (Negative); PCR RSV Negative PCR RSV (Negative); SARS PCR* Negative SARS-CoV-2 (Negative)
--- NOTE | 2025-02-18 20:47 | CRLHL7_ITS ---
For Patients: As a result of the Century Cures Act, medical imaging exams and procedure reports are released immediately into your electronic medical record. You may view this report before your referring provider. If you have questions, please contact your health care provider. INDICATION: Fever, on chemotherapy. Metastatic renal cell carcinoma. TECHNIQUE: CT chest, abdomen and pelvis acquired 74 mL Isovue 370 IV contrast. COMPARISON: CT chest 12/25/2024, CT abdomen pelvis 12/31/2024. FINDINGS: CHEST: Cardiovascular structures: No cardiomegaly or pericardial effusion. Main pulmonary artery dilated to 3.3 cm. Ascending thoracic aortic aneurysm measures 4.3 cm, likely slightly increased compared to previous exam from 12/25/2024. There are coronary artery calcifications. Mediastinum and dailene: Prominent right hilar lymph node measures 1.3 cm in short axis (series 3, image 59), increased compared to prior. Lungs and pleura: Right lower lobe mass measuring 4.2 cm (series 4, image 58), previously 3.1 cm. Innumerable additional pulmonary nodules throughout the lungs also demonstrated interval increase in size. For example conglomerate of right upper lobe nodules measuring up to 3.3 x 2.3 cm (series 4, image 49), previously more distinct from each other and measuring up to a combined 2.5 x 2.0 cm. Left upper lobe nodule measuring 1.8 x 1.8 cm (image 50), previously 1.3 x 1.2 cm. Trace right and minimal left pleural effusions with associated compressive atelectasis. Additional questionable right lower lobe consolidation. No pneumothorax. Patent airways. Chest wall and axilla: No suspicious chest wall mass or fluid collection. No axillary lymphadenopathy. Bones: Lytic lesion of the left lateral 8th rib with associated pathologic fracture (series 3, image 87), new compared to prior. Lytic lesion with prominent soft tissue component at the posterior left 9th rib at the costovertebral articulation with associated pathologic fracture (series 3, image 69), also new compared to prior. Lytic lesion of the T12 vertebral body with soft tissue extension measuring up to 2.3 cm (series 3, image 100), previously 0.5 cm and now with new mild associated vertebral body height loss. Prominent lytic lesion of the T3 vertebral body posteriorly likely extending within the epidural space, measuring up to 1.7 cm (series 3, image 27), increased in size compared to prior, extending to the posterior elements on the right, now with new vertebral body height loss centrally measuring greater than 50 percent with minimal vertebral body retropulsion. ABDOMEN AND PELVIS: Liver: Left hepatic metastasis measuring 1.6 cm (series 8, image 45), previously 0.7 cm. Right hepatic metastasis measuring up to 2.4 cm (image 54), previously 0.6 cm. New right hepatic metastasis measuring 1.3 cm (image 38). Gallbladder and bile ducts: Unremarkable. Pancreas: Unremarkable. Spleen: Unremarkable. Adrenal glands: Similar-appearing left adrenal metastases. Kidneys: Right nephrectomy. No left-sided hydronephrosis or hydroureter. No obstructing calculi. GI tract: No bowel obstruction. No suspicious bowel wall thickening. No CT evidence of acute appendicitis. Vascular structures: Atherosclerotic calcifications of the abdominal aorta and its major branches. No abdominal aortic aneurysm. Grossly patent vasculature, though evaluation is somewhat limited on this exam. Peritoneum/Retroperitoneum/Abdominal Wall/lymph nodes: Large right retroperitoneal mass measuring 12.8 x 10.7 cm, similar to prior. No ascites or pneumoperitoneum. Several prominent mesenteric nodules/lymph nodes appear new/increased in size compared to prior. For example, small mesenteric nodule centrally measuring 0.5 cm (series 8 image 107), left of midline mesenteric nodules versus lymph nodes measuring up to 1.1 cm (image 93). Pelvic Organs: Normal bladder. Unremarkable prostate and seminal vesicles. Bones and superficial soft tissues: Prominent lytic lesion with soft tissue component at the left anterior acetabulum measuring 4.2 x 3.5 cm (series 8, image 137), previously 2.5 x 2.3 cm, extending to the superior pubic ramus. Lytic lesion of the left transverse process of L5 is also increased compared to prior (image 93) with associated soft tissue component. Unchanged advanced disc space height loss at L5-S1. superficial left gluteal soft tissue nodule measuring 0.8 cm (image 104), similar to prior. Additional right anterior abdominal wall superficial soft tissue nodule measuring 0.6 cm (image 91) is new compared to prior. IMPRESSION: 1. Interval increase in size of right lower lobe mass measuring up to 4.2 cm with interval increase in size of innumerable additional pulmonary nodules/masses, compatible with interval progression of disease. 2. New trace right and minimal left pleural effusions with right lung base consolidation versus atelectasis. Correlate for superimposed infectious process. 3. Interval increase in size of numerous skeletal metastases with prominent T3 vertebral body lytic lesion likely extending within the ventral epidural space and now with new associated pathologic fracture resulting in greater than 50 percent loss of vertebral body height and minimal vertebral body retropulsion. 4. Increased size of T12 vertebral body lytic lesion with soft tissue components and mild associated pathologic compression deformity. Increased size of left lateral 8th and left posterior 9th rib lesions with associated soft tissue components and pathologic fractures. 5. Large left acetabular lesion anteriorly, increased in size. 6. New/increased hepatic metastases. 7. New superficial soft tissue nodule at the right anterior ventral abdominal wall. 8. New mesenteric nodularity versus lymph nodes may be indicative of peritoneal carcinomatosis. 9. Grossly unchanged right retroperitoneal mass and left adrenal metastases. 10. Ascending thoracic aortic aneurysm measuring 4.3 cm, likely slightly increased compared to prior. Please note that all CT scans at this facility use dose modulation, iterative reconstruction, and/or weight-based dosing when appropriate to reduce radiation dose to as low as reasonably achievable. Dictated by Varun Siddiqui MD @ 02/18/2025 10:16:00 PM (Electronically Signed)
--- NOTE | 2025-02-18 20:47 | CRLHL7_ITS ---
For Patients: As a result of the Century Cures Act, medical imaging exams and procedure reports are released immediately into your electronic medical record. You may view this report before your referring provider. If you have questions, please contact your health care provider. INDICATION: Back pain. Metastatic renal cell carcinoma. TECHNIQUE: CT lumbar spine without contrast. COMPARISON: CT abdomen and pelvis 12/31/2024. FINDINGS: New/increased lytic lesion of the left transverse process of L5 measuring up to 1.4 x 1.3 cm (series 4, image 116) with soft tissue component posteriorly. The lumbar vertebral bodies maintain their normal heights with preserved lordosis. There is multilevel spondylosis and degenerative disc disease with grossly unchanged advanced disc space height loss at L5-S1. Multilevel central spinal canal stenosis, similar to prior exams. Please refer to separately dictated CT examinations of the chest abdomen and pelvis and thoracic spine for discussion of the thoracic spine and intra abdominal/pelvic contents. IMPRESSION: New/increased lytic lesion of the left transverse process of L5 measuring up to 1.4 cm with posterior soft tissue extension. Please note that all CT scans at this facility use dose modulation, iterative reconstruction, and/or weight-based dosing when appropriate to reduce radiation dose to as low as reasonably achievable. Dictated by Varun Siddiqui MD @ 02/18/2025 10:25:59 PM (Electronically Signed)
--- NOTE | 2025-02-18 20:47 | CRLHL7_ITS ---
For Patients: As a result of the Century Cures Act, medical imaging exams and procedure reports are released immediately into your electronic medical record. You may view this report before your referring provider. If you have questions, please contact your health care provider. INDICATION: Back pain. Metastatic renal cell carcinoma. TECHNIQUE: CT thoracic spine without contrast. COMPARISON: CT chest 12/25/2024. FINDINGS: Prominent lytic lesion of the T3 vertebral body posteriorly likely extending within the ventral epidural space, measuring up to 1.7 cm, increased in size compared to prior and extending to the posterior elements on the right, also with new vertebral body height loss centrally measuring greater than 50 percent with minimal vertebral body retropulsion. Increased size of T12 vertebral body lytic lesion on the right with soft tissue extension, measuring up to 2.3 cm, now with new mild vertebral body height loss inferiorly, less than 25 percent. No significant vertebral body retropulsion. Increased size of left posterior 9th rib lesion measuring up to 1.7 cm with soft tissue components at the level of the costovertebral articulation. Associated pathologic fracture also present, new compared to prior. The remainder of the thoracic vertebral bodies grossly maintain their normal heights with preserved kyphosis. There is multilevel spondylosis and degenerative disc disease with multifocal disc space height loss. Paraspinal soft tissues are grossly within normal limits. Please refer to separately dictated CT of the chest abdomen and pelvis for discussion of intrathoracic and intra-abdominal contents. IMPRESSION: 1. Interval progression of osseous metastatic disease with increased size of T3 vertebral body lesion extending to the posterior elements on the right and likely within the ventral epidural space. Associated pathologic fracture with greater than 50 percent loss of vertebral body height and minimal vertebral body retropulsion. 2. Increased size of T12 vertebral body lytic lesion with new mild pathologic compression deformity of the inferior endplate with less than 25 percent loss of vertebral body height and no significant vertebral body or retropulsion. 3. Increased left posterior 9th rib lesion at the level of the costovertebral articulation with associated pathologic fracture. Please note that all CT scans at this facility use dose modulation, iterative reconstruction, and/or weight-based dosing when appropriate to reduce radiation dose to as low as reasonably achievable. Dictated by Varun Siddiqui MD @ 02/18/2025 10:22:05 PM (Electronically Signed)
[2025-02-19] VITALS (26 sets, daily range): BP systolic 121–142; BP diastolic 68–80; PULSE 94–125; RESP 20; TEMP 36.8–38.1; O2SAT 84–95
[2025-02-19] MEDS: ACETAMINOPHEN 500 MG TABLET 1000 MG PO (01:13)
[2025-02-19] MEDS: PIPERACILLIN/TAZOBACTAM 4.5 GM in 0.9 % SODIUM CHLORIDE Mini-bag 100 ML IVPB (05:58)
== END 2025-02-19 07:30 | disposition short-term general hospital (02) ==
PROVIDERS: Emergency Provider Family Medicine; PCP Family Medicine
DX: R53.1 Weakness (principal); C64.1 Malignant neoplasm of right kidney, except renal pelvis; R50.9 Fever, unspecified; C78.7 Secondary malignant neoplasm of liver and intrahepatic bile duct; C77.9 Secondary and unspecified malignant neoplasm of lymph node, unspecified; C79.72 Secondary malignant neoplasm of left adrenal gland; M48.54XA Collapsed vertebra, not elsewhere classified, thoracic region, initial encounter for fracture
CPT/HCPCS: 36415; 71260; 72128; 72131; 74177; 80053; 81001; 82565; 83605; 83880; 84484; 85025; 86140; 87040; 87631; 93005; 94761; 96361; 96365; 96367; 96375; 99285; A9270; J0131; J1171; J2543; J7030; Q9967

== ENCOUNTER 2025-02-19 07:26 | Outpatient (CLI) | payer BC, SELFPAY | END 2025-02-19 07:27 | disposition home or self-care (01) | LOC: AMB 02-24 18:09 | PROVIDERS: PCP Family Medicine; Visit Provider Emergency Medicine | DX: R50.9 Fever, unspecified (principal); R53.1 Weakness; C64.9 Malignant neoplasm of unspecified kidney, except renal pelvis; C79.51 Secondary malignant neoplasm of bone | CPT/HCPCS: A0425; A0429 ==